=== PATIENT | female | born 1950 | race Caucasian/White ===

== ENCOUNTER → 2016-09-13 | Outpatient (REF) | payer MEDICARE, BC ==
[~2016-09-13] MED LIST: /WARF5TA OR; ACET500C OR; ACET65TA OR; ACETAMINOPHEN PO; ASPI81TA45; ASPI81TA83 OR; ASPI81TA85 PO; ATIV0.5T OR; AZIL1TAB PO; B-12100011 SL; B-12500T2 PO; BABY81CH; BEN1.4DI EX; BISA10SU2 RE; CARB25TA PO; EFFE75CA75 PO; FENT100D25 TD; FERR325T OR; FURO40TA2 PO; HEPARIN IV; HYDR-3713 PO; HYDROCODONE PO; KEFL500C; KLOR1TAB77 PO; LACTASE PO; LIDO5DIS TD; LIDO5DIS36 TD; MELO7.5S PO; MELO7.5T6 PO; MILKSUS PO; MIRAPEX; MIRAPEX OR; MIRT30TA3 PO; NAPR500T; NEUR600T; NEUR600T OR; OMEP40CA2 PO; OMEPPOW18 PO; OPTI0.5D5 OU; OXACILLIN IV; PERC5TAB8 OR; POTA10CA2 OR; POTA1TAB14 PO; POTASIUM PO; PRIL40CA OR; QUESTRAN OR; QUET1TAB7 PO; REST0.05 OU; RIFA300C3 OR; ROPI4TAB PO; ROXI1TAB2 PO; RYZOLT; SELEGILINE; SINE25TA2 OR; SODI-399 IV; TRAM50TA2 OR; TRAM50TA2 PO; ULTR50TA PO; VENL75TA2 PO; VENL75TA3 PO; VICO5TAB; VITA250L PO; VITA400C OR; VITA500T OR; [UNRECOGNIZED DRUG - OTHER]; [UNRECOGNIZED DRUG - OTHER] PO
[2016-09-13 10:48] LABS: BASO # 0.1 K/mm3 (0.0-0.2); BASO % 2.2 % (0.0-1.0); EOS # 0.2 K/mm3 (0.0-0.50); EOS % 4.4 % (0.0-3.0); LARGE UNSTAINED CELL # 0.1 K/mm3 (0.0-0.4); LARGE UNSTAINED CELL % 2.6 % (0.0-4.0); LYMPH # 0.7 K/mm3 (1.5-4.5); LYMPH % 12.3 % (24.0-44.0); MEAN CORPUSCULAR HEMOGLOBIN 29.1 pg (27.0-33.0); MEAN CORPUSCULAR HGB CONC 32.4 g/dl (32.0-36.5); MEAN CORPUSCULAR VOLUME 89.9 fl (80.0-96.0); MONO # 0.4 K/mm3 (0.0-0.8); MONO % 7.8 % (0.0-5.0); NEUTROPHILS # 3.2 K/mm3 (1.8-7.7); NEUTROPHILS % 70.6 % (36.0-66.0); PLATELET COUNT, AUTOMATED 279 k/mm3 (150-450); RED CELL DISTRIBUTION WIDTH 15.5 % (11.5-14.5); WHITE BLOOD COUNT 4.5 K/mm3 (4.0-10.0)
== END ==
PROVIDERS: ATTEND Psychiatry & Neurology Psychiatry
DX: Z51.81 Encounter for therapeutic drug level monitoring (principal); Z79.899 Other long term (current) drug therapy
CPT/HCPCS: 36415; 85025; G0463

== ENCOUNTER → 2016-09-14 | Outpatient (CLI) | payer MEDICARE ==
[~2016-09-14] MED LIST changes: -HYDR-3713 PO; +HYDR1TAB97 PO
--- NOTE | 2016-09-14 16:07 | REP ---
LEFT BREAST ULTRASOUND: Left breast ultrasound is performed in the lower inner aspect to evaluate the small nodule seen on the mammogram at [facility] 07/27/2016. At the 9 o'clock position of the left breast is an oval complex cystic structure measuring 3 mm in diameter. This probably corresponds to the mammographic abnormality. There is distal acoustic shadowing. It is possible that this could represent a solid nodule. Recommend ultrasound guided biopsy with post-procedure mammogram. IMPRESSION: ACR 4 suspicious. The tiny nodule in the medial left breast appears to correspond to a hypoechoic nodule 3 mm in diameter at the 9 o'clock position. Recommend ultrasound guided aspiration/biopsy and post-procedure mammogram. Signed by Fran Castillo MD 09/14/2016 05:23 P
== END ==
LOC: M RAD 13:50
PROVIDERS: ATTEND Surgery
DX: N63 Unspecified lump in breast (principal)

== ENCOUNTER → 2016-09-26 | Outpatient (CLI) | payer MEDICARE ==
[~2016-09-26] MED LIST changes: +HYDR-3713 PO; -HYDR1TAB97 PO; +LIDOCAINE 1% MDV 20ML VIAL As Ordered ONE
--- NOTE | 2016-09-26 14:33 | REP ---
Digital diagnostic unilateral left breast mammogram with CAD: History: Marker clip placement views post ultrasound-guided needle biopsy. Comparison mammography is from August 03, 2016. Findings: There is a marker clip in good position at the inferomedial quadrant of the left breast at the site where August 03, 2016 prior mammography showed a small nodule. There is a 1 cm hematoma at the biopsy site visible on today's mammography. Impression: Marker clip in good position. Signed by Audi Chandra MD 09/26/2016 03:34 P
--- NOTE | 2016-09-27 12:25 | REP ---
ULTRASOUND GUIDED LEFT BREAST BIOPSY: The procedure was performed under the direct supervision of Dr. Chandra. The patient has a history of a tiny nodule in the medial left breast seen on a previous ultrasound dated 09/14/2016. The risks and benefits of the procedure were explained to the patient and informed consent was obtained. The left breast nodule was localized using ultrasound guidance. The skin was prepped and draped in a sterile fashion. 1% Xylocaine was used as a local anesthetic. Using ultrasound guidance, a 13-gauge suction assisted Mammotome needle was inserted and four core biopsy samples were obtained. A marker clip was placed at the biopsy site. The patient tolerated the procedure well and there were no immediate complications. After the appropriate amount of monitored convalescence, the patient was discharged from the department. Reviewed by MINDY Cuevas 09/27/2016 01:41 PEdited and Signed by Audi Chandra MD 09/27/2016 02:35 P
== END | disposition home or self-care (01) ==
LOC: M RADPRO 11:30
PROVIDERS: ATTEND Surgery
DX: E65 Localized adiposity (principal); N60.12 Diffuse cystic mastopathy of left breast; Z79.82 Long term (current) use of aspirin; Z79.899 Other long term (current) drug therapy; Z88.5 Allergy status to narcotic agent
CPT/HCPCS: 19083; 88305; G0206

== ENCOUNTER → 2016-09-27 | Outpatient (REF) | payer MEDICARE, BC ==
[~2016-09-27] MED LIST changes: -LIDOCAINE 1% MDV 20ML VIAL As Ordered ONE
[2016-09-27 10:15] LABS: BASO % 1.1 % (0.0-1.0); EOS # 0.2 K/mm3 (0.0-0.50); EOS % 3.1 % (0.0-3.0); LARGE UNSTAINED CELL # 0.1 K/mm3 (0.0-0.4); LARGE UNSTAINED CELL % 0.9 % (0.0-4.0); LYMPH # 0.7 K/mm3 (1.5-4.5); LYMPH % 12.6 % (24.0-44.0); MEAN CORPUSCULAR HEMOGLOBIN 30.4 pg (27.0-33.0); MEAN CORPUSCULAR HGB CONC 32.4 g/dl (32.0-36.5); MEAN CORPUSCULAR VOLUME 93.8 fl (80.0-96.0); MONO # 0.3 K/mm3 (0.0-0.8); MONO % 5.6 % (0.0-5.0); NEUTROPHILS # 3.7 K/mm3 (1.8-7.7); NEUTROPHILS % 76.6 % (36.0-66.0); PLATELET COUNT, AUTOMATED 238 k/mm3 (150-450); RED CELL DISTRIBUTION WIDTH 15.2 % (11.5-14.5); WHITE BLOOD COUNT 4.9 K/mm3 (4.0-10.0)
== END ==
PROVIDERS: ATTEND Psychiatry & Neurology Psychiatry
DX: Z51.81 Encounter for therapeutic drug level monitoring (principal); Z79.899 Other long term (current) drug therapy
CPT/HCPCS: 36415; 85025; G0463

== ENCOUNTER → 2016-10-11 | Outpatient (REF) | payer MEDICARE, BC ==
[2016-10-11 09:42] LABS: BASO % 0.5 % (0.0-1.0); EOS # 0.2 K/mm3 (0.0-0.50); EOS % 3.5 % (0.0-3.0); LARGE UNSTAINED CELL # 0.1 K/mm3 (0.0-0.4); LARGE UNSTAINED CELL % 1.6 % (0.0-4.0); LYMPH # 0.6 K/mm3 (1.5-4.5); LYMPH % 12.7 % (24.0-44.0); MEAN CORPUSCULAR HGB CONC 32.5 g/dl (32.0-36.5); MEAN CORPUSCULAR VOLUME 92.4 fl (80.0-96.0); MONO # 0.3 K/mm3 (0.0-0.8); MONO % 6.1 % (0.0-5.0); NEUTROPHILS # 3.5 K/mm3 (1.8-7.7); NEUTROPHILS % 75.6 % (36.0-66.0); PLATELET COUNT, AUTOMATED 266 k/mm3 (150-450); RED CELL DISTRIBUTION WIDTH 14.4 % (11.5-14.5); WHITE BLOOD COUNT 4.6 K/mm3 (4.0-10.0)
== END ==
PROVIDERS: ATTEND Psychiatry & Neurology Psychiatry
DX: Z51.81 Encounter for therapeutic drug level monitoring (principal); Z79.899 Other long term (current) drug therapy

== ENCOUNTER → 2016-10-25 | Outpatient (REF) | payer MEDICARE, BC ==
[2016-10-25 10:54] LABS: BASO % 0.4 % (0.0-1.0); EOS # 0.2 K/mm3 (0.0-0.50); EOS % 3.2 % (0.0-3.0); LARGE UNSTAINED CELL % 0.6 % (0.0-4.0); LYMPH # 0.4 K/mm3 (1.5-4.5); LYMPH % 6.1 % (24.0-44.0); MEAN CORPUSCULAR HEMOGLOBIN 29.5 pg (27.0-33.0); MEAN CORPUSCULAR HGB CONC 31.6 g/dl (32.0-36.5); MEAN CORPUSCULAR VOLUME 93.6 fl (80.0-96.0); MONO # 0.3 K/mm3 (0.0-0.8); MONO % 5.3 % (0.0-5.0); NEUTROPHILS % 84.4 % (36.0-66.0); PLATELET COUNT, AUTOMATED 221 k/mm3 (150-450); RED CELL DISTRIBUTION WIDTH 14.5 % (11.5-14.5); WHITE BLOOD COUNT 5.9 K/mm3 (4.0-10.0)
== END ==
PROVIDERS: ATTEND Psychiatry & Neurology Psychiatry
DX: Z51.81 Encounter for therapeutic drug level monitoring (principal); Z79.899 Other long term (current) drug therapy

== ENCOUNTER → 2016-11-08 | Outpatient (REF) | payer MEDICARE, BC ==
[2016-11-08 12:48] LABS: ALBUMIN 3.5 GM/DL (3.2-5.2); ALBUMIN/GLOBULIN RATIO 1.13 (1.00-1.93); BILIRUBIN,TOTAL 0.4 MG/DL (0.2-1.0); CALCIUM LEVEL 8.7 MG/DL (8.8-10.2); CREATININE FOR GFR 0.99 MG/DL (0.55-1.02); GLOMERULAR FILTRATION RATE 59.4 (>45); POTASSIUM SERUM 3.9 MEQ/L (3.5-5.1); TOTAL PROTEIN 6.6 GM/DL (6.4-8.2)
== END ==
PROVIDERS: ATTEND Internal Medicine
DX: R60.0 Localized edema (principal); E78.00 Pure hypercholesterolemia, unspecified; Z23 Encounter for immunization

== ENCOUNTER → 2016-11-08 | Outpatient (REF) | payer MEDICARE, BC ==
[2016-11-08 12:08] LABS: BASO % 0.2 % (0.0-1.0); EOS # 0.2 K/mm3 (0.0-0.50); EOS % 3.7 % (0.0-3.0); LARGE UNSTAINED CELL % 0.5 % (0.0-4.0); LYMPH # 0.4 K/mm3 (1.5-4.5); LYMPH % 8.9 % (24.0-44.0); MEAN CORPUSCULAR HEMOGLOBIN 30.1 pg (27.0-33.0); MEAN CORPUSCULAR HGB CONC 32.1 g/dl (32.0-36.5); MEAN CORPUSCULAR VOLUME 93.9 fl (80.0-96.0); MONO # 0.3 K/mm3 (0.0-0.8); MONO % 5.4 % (0.0-5.0); NEUTROPHILS # 3.8 K/mm3 (1.8-7.7); NEUTROPHILS % 81.3 % (36.0-66.0); PLATELET COUNT, AUTOMATED 238 k/mm3 (150-450); RED CELL DISTRIBUTION WIDTH 14.3 % (11.5-14.5); WHITE BLOOD COUNT 4.7 K/mm3 (4.0-10.0)
== END ==
PROVIDERS: ATTEND Psychiatry & Neurology Psychiatry
DX: Z79.899 Other long term (current) drug therapy (principal)

== ENCOUNTER → 2016-11-16 | Outpatient (REF) | payer MEDICARE, BC ==
[2016-11-16 10:49] LABS: BASO % 0.3 % (0.0-1.0); EOS # 0.2 K/mm3 (0.0-0.50); EOS % 2.8 % (0.0-3.0); LARGE UNSTAINED CELL # 0.1 K/mm3 (0.0-0.4); LARGE UNSTAINED CELL % 1.1 % (0.0-4.0); LYMPH # 0.6 K/mm3 (1.5-4.5); LYMPH % 9.9 % (24.0-44.0); MEAN CORPUSCULAR HEMOGLOBIN 30.1 pg (27.0-33.0); MEAN CORPUSCULAR HGB CONC 32.6 g/dl (32.0-36.5); MEAN CORPUSCULAR VOLUME 92.5 fl (80.0-96.0); MONO # 0.3 K/mm3 (0.0-0.8); NEUTROPHILS % 80.9 % (36.0-66.0); PLATELET COUNT, AUTOMATED 239 k/mm3 (150-450); WHITE BLOOD COUNT 6.2 K/mm3 (4.0-10.0)
== END ==
PROVIDERS: ATTEND Psychiatry & Neurology Psychiatry
DX: Z51.81 Encounter for therapeutic drug level monitoring (principal); Z79.899 Other long term (current) drug therapy

== ENCOUNTER → 2016-11-29 | Outpatient (REF) | payer MEDICARE, BC ==
[2016-11-29 10:17] LABS: BASO % 0.4 % (0.0-1.0); EOS # 0.2 K/mm3 (0.0-0.50); EOS % 3.9 % (0.0-3.0); LARGE UNSTAINED CELL # 0.1 K/mm3 (0.0-0.4); LARGE UNSTAINED CELL % 1.2 % (0.0-4.0); LYMPH # 0.7 K/mm3 (1.5-4.5); MEAN CORPUSCULAR HEMOGLOBIN 30.5 pg (27.0-33.0); MEAN CORPUSCULAR HGB CONC 32.8 g/dl (32.0-36.5); MEAN CORPUSCULAR VOLUME 93.2 fl (80.0-96.0); MONO # 0.3 K/mm3 (0.0-0.8); MONO % 6.9 % (0.0-5.0); NEUTROPHILS # 3.3 K/mm3 (1.8-7.7); NEUTROPHILS % 72.7 % (36.0-66.0); PLATELET COUNT, AUTOMATED 244 k/mm3 (150-450); WHITE BLOOD COUNT 4.5 K/mm3 (4.0-10.0)
== END ==
PROVIDERS: ATTEND Psychiatry & Neurology Psychiatry
DX: Z79.899 Other long term (current) drug therapy (principal)

== ENCOUNTER → 2016-12-13 | Outpatient (REF) | payer MEDICARE, BC ==
[2016-12-13 10:21] LABS: BASO % 0.5 % (0.0-1.0); EOS # 0.2 K/mm3 (0.0-0.50); EOS % 3.9 % (0.0-3.0); LARGE UNSTAINED CELL % 0.8 % (0.0-4.0); LYMPH # 0.7 K/mm3 (1.5-4.5); LYMPH % 15.5 % (24.0-44.0); MEAN CORPUSCULAR HEMOGLOBIN 30.6 pg (27.0-33.0); MEAN CORPUSCULAR HGB CONC 32.7 g/dl (32.0-36.5); MEAN CORPUSCULAR VOLUME 93.6 fl (80.0-96.0); MONO # 0.3 K/mm3 (0.0-0.8); MONO % 7.5 % (0.0-5.0); NEUTROPHILS # 3.2 K/mm3 (1.8-7.7); NEUTROPHILS % 71.9 % (36.0-66.0); PLATELET COUNT, AUTOMATED 249 k/mm3 (150-450); RED CELL DISTRIBUTION WIDTH 14.1 % (11.5-14.5); WHITE BLOOD COUNT 4.5 K/mm3 (4.0-10.0)
== END ==
PROVIDERS: ATTEND Psychiatry & Neurology Psychiatry
DX: Z51.81 Encounter for therapeutic drug level monitoring (principal); Z79.899 Other long term (current) drug therapy

== ENCOUNTER → 2016-12-27 | Outpatient (REF) | payer MEDICARE, BC ==
[2016-12-27 11:14] LABS: BASO % 0.4 % (0.0-1.0); EOS # 0.1 K/mm3 (0.0-0.50); EOS % 2.7 % (0.0-3.0); LARGE UNSTAINED CELL % 0.4 % (0.0-4.0); LYMPH # 0.5 K/mm3 (1.5-4.5); LYMPH % 10.8 % (24.0-44.0); MEAN CORPUSCULAR HGB CONC 31.7 g/dl (32.0-36.5); MEAN CORPUSCULAR VOLUME 94.8 fl (80.0-96.0); MONO # 0.3 K/mm3 (0.0-0.8); MONO % 5.8 % (0.0-5.0); NEUTROPHILS # 3.7 K/mm3 (1.8-7.7); NEUTROPHILS % 79.8 % (36.0-66.0); PLATELET COUNT, AUTOMATED 217 k/mm3 (150-450); RED CELL DISTRIBUTION WIDTH 13.9 % (11.5-14.5); WHITE BLOOD COUNT 4.6 K/mm3 (4.0-10.0)
== END ==
PROVIDERS: ATTEND Psychiatry & Neurology Psychiatry
DX: Z51.81 Encounter for therapeutic drug level monitoring (principal); Z79.899 Other long term (current) drug therapy

== ENCOUNTER → 2017-01-10 | Outpatient (REF) | payer MEDICARE, MEDICAID ==
[2017-01-10 11:10] LABS: BASO % 0.3 % (0.0-1.0); EOS # 0.2 K/mm3 (0.0-0.50); EOS % 3.1 % (0.0-3.0); LARGE UNSTAINED CELL % 0.7 % (0.0-4.0); LYMPH # 0.7 K/mm3 (1.5-4.5); LYMPH % 11.6 % (24.0-44.0); MEAN CORPUSCULAR HEMOGLOBIN 31.6 pg (27.0-33.0); MEAN CORPUSCULAR HGB CONC 33.1 g/dl (32.0-36.5); MEAN CORPUSCULAR VOLUME 95.4 fl (80.0-96.0); MONO # 0.3 K/mm3 (0.0-0.8); MONO % 5.4 % (0.0-5.0); NEUTROPHILS # 4.4 K/mm3 (1.8-7.7); NEUTROPHILS % 78.9 % (36.0-66.0); PLATELET COUNT, AUTOMATED 258 k/mm3 (150-450); RED CELL DISTRIBUTION WIDTH 14.1 % (11.5-14.5); WHITE BLOOD COUNT 5.6 K/mm3 (4.0-10.0)
== END ==
PROVIDERS: ATTEND Psychiatry & Neurology Psychiatry
DX: Z51.81 Encounter for therapeutic drug level monitoring (principal); Z79.899 Other long term (current) drug therapy

== ENCOUNTER → 2017-01-24 | Outpatient (REF) | payer MEDICARE, MEDICAID ==
[2017-01-24 11:03] LABS: BASO % 0.4 % (0.0-1.0); EOS # 0.1 K/mm3 (0.0-0.50); EOS % 2.2 % (0.0-3.0); LARGE UNSTAINED CELL % 0.6 % (0.0-4.0); LYMPH # 0.5 K/mm3 (1.5-4.5); LYMPH % 9.4 % (24.0-44.0); MEAN CORPUSCULAR HEMOGLOBIN 31.6 pg (27.0-33.0); MEAN CORPUSCULAR HGB CONC 33.3 g/dl (32.0-36.5); MONO # 0.3 K/mm3 (0.0-0.8); MONO % 5.3 % (0.0-5.0); NEUTROPHILS # 4.3 K/mm3 (1.8-7.7); NEUTROPHILS % 82.2 % (36.0-66.0); PLATELET COUNT, AUTOMATED 220 k/mm3 (150-450); RED CELL DISTRIBUTION WIDTH 14.1 % (11.5-14.5); WHITE BLOOD COUNT 5.2 K/mm3 (4.0-10.0)
== END ==
PROVIDERS: ATTEND Psychiatry & Neurology Psychiatry
DX: Z51.81 Encounter for therapeutic drug level monitoring (principal); Z79.899 Other long term (current) drug therapy

== ENCOUNTER → 2017-02-07 | Outpatient (REF) | payer MEDICARE, MEDICAID ==
[2017-02-07 11:01] LABS: BASO % 0.4 % (0.0-1.0); EOS # 0.1 K/mm3 (0.0-0.50); EOS % 2.7 % (0.0-3.0); LARGE UNSTAINED CELL % 0.8 % (0.0-4.0); LYMPH # 0.5 K/mm3 (1.5-4.5); LYMPH % 10.1 % (24.0-44.0); MEAN CORPUSCULAR HEMOGLOBIN 30.6 pg (27.0-33.0); MEAN CORPUSCULAR HGB CONC 31.9 g/dl (32.0-36.5); MEAN CORPUSCULAR VOLUME 95.7 fl (80.0-96.0); MONO # 0.2 K/mm3 (0.0-0.8); MONO % 4.9 % (0.0-5.0); NEUTROPHILS # 3.7 K/mm3 (1.8-7.7); NEUTROPHILS % 81.1 % (36.0-66.0); PLATELET COUNT, AUTOMATED 242 k/mm3 (150-450); WHITE BLOOD COUNT 4.5 K/mm3 (4.0-10.0)
== END ==
PROVIDERS: ATTEND Psychiatry & Neurology Psychiatry
DX: Z51.81 Encounter for therapeutic drug level monitoring (principal); Z79.899 Other long term (current) drug therapy

== ENCOUNTER → 2017-02-21 | Outpatient (REF) | payer MEDICARE, MEDICAID ==
[2017-02-21 10:43] LABS: BASO % 0.4 % (0.0-1.0); EOS # 0.2 K/mm3 (0.0-0.50); EOS % 3.8 % (0.0-3.0); LARGE UNSTAINED CELL % 0.7 % (0.0-4.0); LYMPH # 0.6 K/mm3 (1.5-4.5); LYMPH % 11.8 % (24.0-44.0); MEAN CORPUSCULAR HEMOGLOBIN 31.7 pg (27.0-33.0); MEAN CORPUSCULAR HGB CONC 32.8 g/dl (32.0-36.5); MEAN CORPUSCULAR VOLUME 96.6 fl (80.0-96.0); MONO # 0.3 K/mm3 (0.0-0.8); MONO % 5.4 % (0.0-5.0); NEUTROPHILS # 3.7 K/mm3 (1.8-7.7); NEUTROPHILS % 77.9 % (36.0-66.0); PLATELET COUNT, AUTOMATED 245 k/mm3 (150-450); RED CELL DISTRIBUTION WIDTH 14.1 % (11.5-14.5); WHITE BLOOD COUNT 4.7 K/mm3 (4.0-10.0)
== END ==
PROVIDERS: ATTEND Psychiatry & Neurology Psychiatry
DX: Z51.81 Encounter for therapeutic drug level monitoring (principal); Z79.899 Other long term (current) drug therapy

== ENCOUNTER → 2017-03-07 | Outpatient (REF) | payer MEDICARE, MEDICAID ==
[2017-03-07 10:41] LABS: BASO % 0.2 % (0.0-1.0); EOS # 0.1 K/mm3 (0.0-0.50); EOS % 1.5 % (0.0-3.0); LARGE UNSTAINED CELL # 0.1 K/mm3 (0.0-0.4); LARGE UNSTAINED CELL % 0.6 % (0.0-4.0); LYMPH # 0.5 K/mm3 (1.5-4.5); LYMPH % 5.2 % (24.0-44.0); MEAN CORPUSCULAR HEMOGLOBIN 31.8 pg (27.0-33.0); MEAN CORPUSCULAR HGB CONC 32.9 g/dl (32.0-36.5); MEAN CORPUSCULAR VOLUME 96.7 fl (80.0-96.0); MONO # 0.4 K/mm3 (0.0-0.8); MONO % 4.7 % (0.0-5.0); NEUTROPHILS # 7.6 K/mm3 (1.8-7.7); NEUTROPHILS % 87.9 % (36.0-66.0); PLATELET COUNT, AUTOMATED 238 k/mm3 (150-450); WHITE BLOOD COUNT 8.7 K/mm3 (4.0-10.0)
== END ==
PROVIDERS: ATTEND Psychiatry & Neurology Psychiatry
DX: Z51.81 Encounter for therapeutic drug level monitoring (principal); Z79.899 Other long term (current) drug therapy

== ENCOUNTER → 2017-03-22 | Outpatient (REF) | payer MEDICARE, MEDICAID ==
[~2017-03-22] MED LIST changes: -LIDO5DIS36 TD; +LIDO5DIS41 TD; -MELO7.5T6 PO; +MELO7.5T7 PO; -ULTR50TA PO; +ULTR50TA8 PO
[2017-03-22 11:38] LABS: BASO % 0.3 % (0.0-1.0); EOS # 0.2 K/mm3 (0.0-0.50); EOS % 3.6 % (0.0-3.0); LARGE UNSTAINED CELL # 0.1 K/mm3 (0.0-0.4); LARGE UNSTAINED CELL % 1.2 % (0.0-4.0); LYMPH # 0.5 K/mm3 (1.5-4.5); MEAN CORPUSCULAR HEMOGLOBIN 32.1 pg (27.0-33.0); MEAN CORPUSCULAR HGB CONC 33.6 g/dl (32.0-36.5); MEAN CORPUSCULAR VOLUME 95.8 fl (80.0-96.0); MONO # 0.2 K/mm3 (0.0-0.8); MONO % 4.9 % (0.0-5.0); NEUTROPHILS # 3.7 K/mm3 (1.8-7.7); NEUTROPHILS % 78.8 % (36.0-66.0); PLATELET COUNT, AUTOMATED 268 k/mm3 (150-450); RED CELL DISTRIBUTION WIDTH 13.5 % (11.5-14.5); WHITE BLOOD COUNT 4.7 K/mm3 (4.0-10.0)
== END ==
PROVIDERS: ATTEND Psychiatry & Neurology Psychiatry
DX: Z79.899 Other long term (current) drug therapy (principal)

== ENCOUNTER → 2017-04-04 | Outpatient (REF) | payer MEDICARE, MEDICAID ==
[2017-04-04 11:34] LABS: BASO % 0.4 % (0.0-1.0); EOS # 0.1 K/mm3 (0.0-0.50); EOS % 2.4 % (0.0-3.0); LARGE UNSTAINED CELL % 0.7 % (0.0-4.0); LYMPH # 0.6 K/mm3 (1.5-4.5); LYMPH % 9.1 % (24.0-44.0); MEAN CORPUSCULAR HEMOGLOBIN 31.6 pg (27.0-33.0); MEAN CORPUSCULAR HGB CONC 32.7 g/dl (32.0-36.5); MEAN CORPUSCULAR VOLUME 96.8 fl (80.0-96.0); MONO # 0.3 K/mm3 (0.0-0.8); MONO % 4.1 % (0.0-5.0); NEUTROPHILS # 5.1 K/mm3 (1.8-7.7); NEUTROPHILS % 83.4 % (36.0-66.0); PLATELET COUNT, AUTOMATED 278 k/mm3 (150-450); RED CELL DISTRIBUTION WIDTH 13.7 % (11.5-14.5); WHITE BLOOD COUNT 6.1 K/mm3 (4.0-10.0)
== END ==
PROVIDERS: ATTEND Psychiatry & Neurology Psychiatry
DX: Z51.81 Encounter for therapeutic drug level monitoring (principal); Z79.899 Other long term (current) drug therapy

== ENCOUNTER → 2017-04-18 | Outpatient (REF) | payer MEDICARE, MEDICAID ==
[2017-04-18 10:57] LABS: BASO % 0.6 % (0.0-1.0); EOS # 0.2 K/mm3 (0.0-0.50); EOS % 3.1 % (0.0-3.0); LARGE UNSTAINED CELL % 0.8 % (0.0-4.0); LYMPH # 0.5 K/mm3 (1.5-4.5); LYMPH % 8.6 % (24.0-44.0); MEAN CORPUSCULAR HEMOGLOBIN 31.6 pg (27.0-33.0); MEAN CORPUSCULAR HGB CONC 33.1 g/dl (32.0-36.5); MEAN CORPUSCULAR VOLUME 95.7 fl (80.0-96.0); MONO # 0.3 K/mm3 (0.0-0.8); MONO % 5.7 % (0.0-5.0); NEUTROPHILS # 4.3 K/mm3 (1.8-7.7); NEUTROPHILS % 81.2 % (36.0-66.0); PLATELET COUNT, AUTOMATED 260 k/mm3 (150-450); RED CELL DISTRIBUTION WIDTH 13.7 % (11.5-14.5); WHITE BLOOD COUNT 5.3 K/mm3 (4.0-10.0)
== END ==
PROVIDERS: ATTEND Psychiatry & Neurology Psychiatry
DX: Z51.81 Encounter for therapeutic drug level monitoring (principal); Z79.899 Other long term (current) drug therapy

== ENCOUNTER → 2017-05-17 | Outpatient (REF) | payer MEDICARE, MEDICAID ==
[2017-05-17 16:46] LABS: BASO % 0.4 % (0.0-1.0); EOS # 0.2 K/mm3 (0.0-0.50); EOS % 3.8 % (0.0-3.0); LARGE UNSTAINED CELL # 0.1 K/mm3 (0.0-0.4); LARGE UNSTAINED CELL % 1.1 % (0.0-4.0); LYMPH # 0.9 K/mm3 (1.5-4.5); LYMPH % 13.2 % (24.0-44.0); MEAN CORPUSCULAR HGB CONC 31.7 g/dl (32.0-36.5); MEAN CORPUSCULAR VOLUME 97.8 fl (80.0-96.0); MONO # 0.4 K/mm3 (0.0-0.8); MONO % 5.5 % (0.0-5.0); PLATELET COUNT, AUTOMATED 273 k/mm3 (150-450); WHITE BLOOD COUNT 6.6 K/mm3 (4.0-10.0)
== END ==
PROVIDERS: ATTEND Psychiatry & Neurology Psychiatry
DX: Z79.899 Other long term (current) drug therapy (principal)

== ENCOUNTER → 2017-05-26 | Outpatient (CLI) | payer MEDICARE, MEDICAID ==
[2017-05-26 13:46] LABS: ALBUMIN 3.6 GM/DL (3.2-5.2); ALBUMIN/GLOBULIN RATIO 1.16 (1.00-1.93); BILIRUBIN,TOTAL 0.4 MG/DL (0.2-1.0); CALCIUM LEVEL 8.6 MG/DL (8.8-10.2); CREATININE FOR GFR 1.06 MG/DL (0.55-1.02); GLOMERULAR FILTRATION RATE 54.7 (>45); POTASSIUM SERUM 3.8 MEQ/L (3.5-5.1); TOTAL PROTEIN 6.7 GM/DL (6.4-8.2)
== END ==
LOC: M SMT 10:19
PROVIDERS: ATTEND Internal Medicine
DX: R60.0 Localized edema (principal); E78.00 Pure hypercholesterolemia, unspecified

== ENCOUNTER → 2017-06-13 | Outpatient (REF) | payer MEDICARE, MEDICAID ==
[2017-06-13 11:20] LABS: ADD MANUAL DIFFER NO; BASO % 0.4 % (0.0-1.0); DIFF SLIDE NUMBER 7; EOS # 0.2 10^3/uL (0.0-0.50); EOS % 3.1 % (0.0-3.0); IMMATURE GRANULOCYTE % 0.4 % (0-0); LYMPH # 0.8 10^3/uL (1.5-4.5); LYMPH % 13.9 % (24.0-44.0); MEAN CORPUSCULAR HEMOGLOBIN 31.3 pg (27.0-33.0); MEAN CORPUSCULAR HGB CONC 32.2 g/dl (32.0-36.5); MEAN CORPUSCULAR VOLUME 97.2 fl (80.0-96.0); MONO # 0.4 10^3/uL (0.0-0.8); MONO % 6.9 % (0.0-5.0); NEUTROPHILS # 4.1 10^3/uL (1.8-7.7); NEUTROPHILS % 75.3 % (36.0-66.0); PLATELET COUNT, AUTOMATED 227 10^3/uL (150-450); RED CELL DISTRIBUTION WIDTH 13.4 % (11.5-14.5); WHITE BLOOD COUNT 5.5 10^3/uL (4.0-10.0)
== END ==
PROVIDERS: ATTEND Psychiatry & Neurology Psychiatry
DX: Z51.81 Encounter for therapeutic drug level monitoring (principal); Z79.899 Other long term (current) drug therapy

== ENCOUNTER → 2017-07-11 | Outpatient (REF) | payer MEDICARE, MEDICAID ==
[2017-07-11 11:12] LABS: BASO % 0.4 % (0.0-1.0); EOS # 0.2 10^3/uL (0.0-0.50); EOS % 3.2 % (0.0-3.0); IMMATURE GRANULOCYTE % 0.2 % (0-0); LYMPH # 0.6 10^3/uL (1.5-4.5); LYMPH % 12.3 % (24.0-44.0); MEAN CORPUSCULAR HEMOGLOBIN 30.8 pg (27.0-33.0); MEAN CORPUSCULAR HGB CONC 31.8 g/dl (32.0-36.5); MEAN CORPUSCULAR VOLUME 96.8 fl (80.0-96.0); MONO # 0.3 10^3/uL (0.0-0.8); MONO % 6.3 % (0.0-5.0); NEUTROPHILS # 3.9 10^3/uL (1.8-7.7); NEUTROPHILS % 77.6 % (36.0-66.0); PLATELET COUNT, AUTOMATED 224 10^3/uL (150-450); RED CELL DISTRIBUTION WIDTH 13.3 % (11.5-14.5); WHITE BLOOD COUNT 5.1 10^3/uL (4.0-10.0)
== END ==
PROVIDERS: ATTEND Psychiatry & Neurology Psychiatry
DX: Z51.81 Encounter for therapeutic drug level monitoring (principal); Z79.899 Other long term (current) drug therapy

== ENCOUNTER → 2017-08-09 | Outpatient (REF) | payer MEDICARE, MEDICAID ==
[2017-08-09 09:50] LABS: BASO % 0.6 % (0.0-1.0); EOS # 0.2 10^3/uL (0.0-0.50); EOS % 4.8 % (0.0-3.0); IMMATURE GRANULOCYTE % 0.3 % (0-0); LYMPH # 0.6 10^3/uL (1.5-4.5); LYMPH % 20.1 % (24.0-44.0); MEAN CORPUSCULAR HEMOGLOBIN 31.4 pg (27.0-33.0); MEAN CORPUSCULAR HGB CONC 32.9 g/dl (32.0-36.5); MEAN CORPUSCULAR VOLUME 95.4 fl (80.0-96.0); MONO # 0.3 10^3/uL (0.0-0.8); MONO % 10.2 % (0.0-5.0); PLATELET COUNT, AUTOMATED 215 10^3/uL (150-450); RED CELL DISTRIBUTION WIDTH 13.5 % (11.5-14.5); WHITE BLOOD COUNT 3.1 10^3/uL (4.0-10.0)
== END ==
PROVIDERS: ATTEND Psychiatry & Neurology Psychiatry
DX: Z79.899 Other long term (current) drug therapy (principal)

== ENCOUNTER 2017-09-13 11:39 | Day surgery (SDC) | payer MEDICARE, MEDICAID ==
[2017-09-13] MEDS: NS 1,000 ML IV (11:45)
[2017-09-13] MEDS ORDERED: PROPOFOL 200 MG/20 ML VIAL As Ordered ×2 (13:41→13:45)
== END 2017-09-13 14:41 | disposition home or self-care (01) ==
LOC: M OPP 11:39
DX: Z12.11 Encounter for screening for malignant neoplasm of colon (principal); K64.0 First degree hemorrhoids; K57.30 Diverticulosis of large intestine without perforation or abscess without bleeding; Z80.0 Family history of malignant neoplasm of digestive organs; Z86.010 Personal history of colon polyps; K21.9 Gastro-esophageal reflux disease without esophagitis; F41.9 Anxiety disorder, unspecified; F32.9 Major depressive disorder, single episode, unspecified; M79.2 Neuralgia and neuritis, unspecified; G20 Parkinson's disease; M86.9 Osteomyelitis, unspecified; M19.90 Unspecified osteoarthritis, unspecified site; Z96.641 Presence of right artificial hip joint; Z87.19 Personal history of other diseases of the digestive system; Z87.790 Personal history of (corrected) congenital malformations of face and neck; Z79.82 Long term (current) use of aspirin; Z79.899 Other long term (current) drug therapy
CPT/HCPCS: G0105

== ENCOUNTER → 2017-09-25 | Outpatient (REF) | payer MEDICARE, MEDICAID ==
[2017-09-25 21:23] LABS: VITAMIN B12 LEVEL 475 PG/ML (247-911)
[2017-09-25 21:33] LABS: ALBUMIN 3.6 GM/DL (3.2-5.2); ALBUMIN/GLOBULIN RATIO 1.16 (1.00-1.93); ALKALINE PHOSPHATASE 100 U/L (45-117); ALT/SGPT 9 U/L (12-78); ANION GAP 7 MEQ/L (8-16); AST/SGOT 15 U/L (7-37); BILIRUBIN,TOTAL 0.4 MG/DL (0.2-1.0); BLOOD UREA NITROGEN 17 MG/DL (7-18); CALCIUM LEVEL 8.8 MG/DL (8.8-10.2); CARBON DIOXIDE LEVEL 30 MEQ/L (21-32); CHLORIDE LEVEL 108 MEQ/L (98-107); GLOMERULAR FILTRATION RATE 58.5 (>45); GLUCOSE, FASTING 93 MG/DL (80-110); SODIUM LEVEL 145 MEQ/L (136-145); THYROID STIMULATING HORMONE 0.259 uIU/ML (0.358-3.740); TOTAL PROTEIN 6.7 GM/DL (6.4-8.2)
== END ==
LOC: M SFHCPLAZ 14:46
DX: R60.0 Localized edema (principal); E78.00 Pure hypercholesterolemia, unspecified; E53.8 Deficiency of other specified B group vitamins; F34.1 Dysthymic disorder
CPT/HCPCS: 84443

== ENCOUNTER → 2017-10-03 | Outpatient (REF) | payer MEDICARE, MEDICAID ==
[2017-10-03 09:13] LABS: BASO % 0.4 % (0.0-1.0); EOS # 0.2 10^3/uL (0.0-0.50); EOS % 4.8 % (0.0-3.0); HEMATOCRIT 34.5 % (36.0-47.0); HEMOGLOBIN 11.2 g/dl (12.0-16.0); IMMATURE GRANULOCYTE % 0.2 % (0-0); LYMPH % 21.2 % (24.0-44.0); MEAN CORPUSCULAR HEMOGLOBIN 30.8 pg (27.0-33.0); MEAN CORPUSCULAR HGB CONC 32.5 g/dl (32.0-36.5); MEAN CORPUSCULAR VOLUME 94.8 fl (80.0-96.0); MONO # 0.3 10^3/uL (0.0-0.8); MONO % 7.1 % (0.0-5.0); NEUTROPHILS # 3.1 10^3/uL (1.8-7.7); NEUTROPHILS % 66.3 % (36.0-66.0); PLATELET COUNT, AUTOMATED 238 10^3/uL (150-450); RED BLOOD COUNT 3.64 10^6/uL (4.00-5.40); RED CELL DISTRIBUTION WIDTH 13.3 % (11.5-14.5); WHITE BLOOD COUNT 4.6 10^3/uL (4.0-10.0)
== END ==
DX: Z79.899 Other long term (current) drug therapy (principal)
CPT/HCPCS: 85025

== ENCOUNTER → 2017-10-31 | Outpatient (REF) | payer MEDICARE, MEDICAID ==
[2017-10-31 09:34] LABS: BASO % 0.4 % (0.0-1.0); EOS # 0.2 10^3/uL (0.0-0.50); EOS % 3.6 % (0.0-3.0); HEMATOCRIT 34.1 % (36.0-47.0); HEMOGLOBIN 11.6 g/dl (12.0-16.0); IMMATURE GRANULOCYTE % 0.2 % (0-3.0); LYMPH # 0.9 10^3/uL (1.5-4.5); LYMPH % 17.8 % (24.0-44.0); MEAN CORPUSCULAR VOLUME 93.9 fl (80.0-96.0); MONO # 0.4 10^3/uL (0.0-0.8); MONO % 8.7 % (0.0-5.0); NEUTROPHILS # 3.4 10^3/uL (1.8-7.7); NEUTROPHILS % 69.3 % (36.0-66.0); PLATELET COUNT, AUTOMATED 272 10^3/uL (150-450); RED BLOOD COUNT 3.63 10^6/uL (4.00-5.40); RED CELL DISTRIBUTION WIDTH 13.3 % (11.5-14.5)
== END ==
DX: F29 Unspecified psychosis not due to a substance or known physiological condition (principal)
CPT/HCPCS: 85025

== ENCOUNTER → 2017-11-24 | Outpatient (REF) | payer MEDICARE, MEDICAID ==
[2017-11-24 10:28] LABS: ALBUMIN 3.5 GM/DL (3.2-5.2); ALBUMIN/GLOBULIN RATIO 1.09 (1.00-1.93); ALKALINE PHOSPHATASE 96 U/L (45-117); ALT/SGPT 10 U/L (12-78); ANION GAP 8 MEQ/L (8-16); AST/SGOT 16 U/L (7-37); BILIRUBIN,TOTAL 0.4 MG/DL (0.2-1.0); BLOOD UREA NITROGEN 21 MG/DL (7-18); CALCIUM LEVEL 8.5 MG/DL (8.8-10.2); CARBON DIOXIDE LEVEL 28 MEQ/L (21-32); CHLORIDE LEVEL 109 MEQ/L (98-107); CHOLESTEROL LEVEL 229 MG/DL (<200); CHOLESTEROL RISK RATIO 3.816 (<5); CREATININE FOR GFR 1.04 MG/DL (0.55-1.30); GLOMERULAR FILTRATION RATE 55.9 (>45); GLUCOSE, FASTING 88 MG/DL (70-100); HDL CHOLESTEROL 60 MG/DL (>40); LDL CHOLESTEROL 142.6 MG/DL (<100); NON-HDL-C 169 MG/DL; POTASSIUM SERUM 3.8 MEQ/L (3.5-5.1); SODIUM LEVEL 145 MEQ/L (136-145); TOTAL PROTEIN 6.7 GM/DL (6.4-8.2); TRIGLYCERIDES LEVEL 132 MG/DL (<150)
[2017-11-24 11:22] LABS: VITAMIN B12 LEVEL 435 PG/ML (247-911)
== END ==
DX: E78.00 Pure hypercholesterolemia, unspecified (principal); R60.0 Localized edema; F34.1 Dysthymic disorder; E53.8 Deficiency of other specified B group vitamins
CPT/HCPCS: 84443

== ENCOUNTER → 2017-11-28 | Outpatient (REF) | payer MEDICARE, MEDICAID ==
[2017-11-28 09:39] LABS: BASO % 0.3 % (0.0-1.0); EOS # 0.2 10^3/uL (0.0-0.50); EOS % 3.1 % (0.0-3.0); HEMATOCRIT 33.5 % (36.0-47.0); HEMOGLOBIN 10.9 g/dl (12.0-16.0); IMMATURE GRANULOCYTE % 0.3 % (0-3.0); LYMPH # 0.8 10^3/uL (1.5-4.5); MEAN CORPUSCULAR HGB CONC 32.5 g/dl (32.0-36.5); MEAN CORPUSCULAR VOLUME 95.2 fl (80.0-96.0); MONO # 0.5 10^3/uL (0.0-0.8); MONO % 8.2 % (0.0-5.0); NEUTROPHILS # 4.3 10^3/uL (1.8-7.7); NEUTROPHILS % 74.1 % (36.0-66.0); PLATELET COUNT, AUTOMATED 201 10^3/uL (150-450); RED BLOOD COUNT 3.52 10^6/uL (4.00-5.40); RED CELL DISTRIBUTION WIDTH 13.3 % (11.5-14.5); WHITE BLOOD COUNT 5.8 10^3/uL (4.0-10.0)
== END ==
DX: F32.9 Major depressive disorder, single episode, unspecified (principal); Z79.899 Other long term (current) drug therapy
CPT/HCPCS: 85025

== ENCOUNTER → 2017-12-26 | Outpatient (REF) | payer MEDICARE, MEDICAID ==
[2017-12-26 09:21] LABS: BASO % 0.4 % (0.0-1.0); EOS # 0.2 10^3/uL (0.0-0.50); EOS % 3.9 % (0.0-3.0); HEMOGLOBIN 11.3 g/dl (12.0-15.5); IMMATURE GRANULOCYTE % 0.2 % (0-3.0); LYMPH # 1.2 10^3/uL (1.5-4.5); LYMPH % 20.9 % (24.0-44.0); MEAN CORPUSCULAR HEMOGLOBIN 30.3 pg (27.0-33.0); MEAN CORPUSCULAR HGB CONC 32.3 g/dl (32.0-36.5); MEAN CORPUSCULAR VOLUME 93.8 fl (80.0-96.0); MONO # 0.4 10^3/uL (0.0-0.8); MONO % 7.6 % (0.0-5.0); NEUTROPHILS # 3.8 10^3/uL (1.8-7.7); PLATELET COUNT, AUTOMATED 229 10^3/uL (150-450); RED BLOOD COUNT 3.73 10^6/uL (4.00-5.40); RED CELL DISTRIBUTION WIDTH 13.4 % (11.5-14.5); WHITE BLOOD COUNT 5.7 10^3/uL (4.0-10.0)
== END ==
DX: Z79.899 Other long term (current) drug therapy (principal)
CPT/HCPCS: 85025

== ENCOUNTER → 2018-01-23 | Outpatient (REF) | payer MEDICARE, MEDICAID ==
[2018-01-23 09:36] LABS: BASO % 0.5 % (0.0-1.0); EOS # 0.2 10^3/uL (0.0-0.50); EOS % 3.6 % (0.0-3.0); HEMATOCRIT 33.8 % (36.0-47.0); HEMOGLOBIN 10.9 g/dl (12.0-15.5); IMMATURE GRANULOCYTE % 0.4 % (0-3.0); LYMPH # 0.9 10^3/uL (1.5-4.5); LYMPH % 16.8 % (24.0-44.0); MEAN CORPUSCULAR HEMOGLOBIN 30.9 pg (27.0-33.0); MEAN CORPUSCULAR HGB CONC 32.2 g/dl (32.0-36.5); MEAN CORPUSCULAR VOLUME 95.8 fl (80.0-96.0); MONO # 0.4 10^3/uL (0.0-0.8); MONO % 7.9 % (0.0-5.0); NEUTROPHILS % 70.8 % (36.0-66.0); PLATELET COUNT, AUTOMATED 212 10^3/uL (150-450); RED BLOOD COUNT 3.53 10^6/uL (4.00-5.40); RED CELL DISTRIBUTION WIDTH 13.5 % (11.5-14.5); WHITE BLOOD COUNT 5.6 10^3/uL (4.0-10.0)
== END ==
DX: Z51.81 Encounter for therapeutic drug level monitoring (principal); Z79.899 Other long term (current) drug therapy
CPT/HCPCS: 85025

== ENCOUNTER → 2018-02-20 | Outpatient (REF) | payer MEDICARE, MEDICAID ==
[2018-02-20 09:45] LABS: BASO % 0.3 % (0.0-1.0); EOS # 0.2 10^3/uL (0.0-0.50); EOS % 3.6 % (0.0-3.0); HEMATOCRIT 34.2 % (36.0-47.0); HEMOGLOBIN 11.1 g/dl (12.0-15.5); IMMATURE GRANULOCYTE % 0.2 % (0-3.0); LYMPH # 0.9 10^3/uL (1.5-4.5); LYMPH % 14.4 % (24.0-44.0); MEAN CORPUSCULAR HEMOGLOBIN 31.1 pg (27.0-33.0); MEAN CORPUSCULAR HGB CONC 32.5 g/dl (32.0-36.5); MEAN CORPUSCULAR VOLUME 95.8 fl (80.0-96.0); MONO # 0.5 10^3/uL (0.0-0.8); MONO % 8.1 % (0.0-5.0); NEUTROPHILS # 4.3 10^3/uL (1.8-7.7); NEUTROPHILS % 73.4 % (36.0-66.0); PLATELET COUNT, AUTOMATED 199 10^3/uL (150-450); RED BLOOD COUNT 3.57 10^6/uL (4.00-5.40); RED CELL DISTRIBUTION WIDTH 13.2 % (11.5-14.5); WHITE BLOOD COUNT 5.9 10^3/uL (4.0-10.0)
== END ==
DX: Z79.899 Other long term (current) drug therapy (principal)
CPT/HCPCS: 85025

== ENCOUNTER → 2018-03-06 | Outpatient (REF) | payer MEDICARE, MEDICAID ==
[2018-03-06 12:10] LABS: ALBUMIN 3.7 GM/DL (3.2-5.2); ALBUMIN/GLOBULIN RATIO 1.19 (1.00-1.93); ALKALINE PHOSPHATASE 99 U/L (45-117); ALT/SGPT 12 U/L (12-78); ANION GAP 7 MEQ/L (8-16); AST/SGOT 17 U/L (7-37); BILIRUBIN,TOTAL 0.4 MG/DL (0.2-1.0); BLOOD UREA NITROGEN 20 MG/DL (7-18); CALCIUM LEVEL 8.8 MG/DL (8.8-10.2); CARBON DIOXIDE LEVEL 31 MEQ/L (21-32); CHLORIDE LEVEL 110 MEQ/L (98-107); CHOLESTEROL LEVEL 216 MG/DL (<200); CHOLESTEROL RISK RATIO 3.483 (<5); CREATININE FOR GFR 1.16 MG/DL (0.55-1.30); GLOMERULAR FILTRATION RATE 49.3 (>45); GLUCOSE, FASTING 85 MG/DL (70-100); HDL CHOLESTEROL 62 MG/DL (>40); LDL CHOLESTEROL 126.8 MG/DL (<100); NON-HDL-C 154 MG/DL; POTASSIUM SERUM 4.2 MEQ/L (3.5-5.1); SODIUM LEVEL 148 MEQ/L (136-145); TOTAL PROTEIN 6.8 GM/DL (6.4-8.2); TRIGLYCERIDES LEVEL 136 MG/DL (<150)
== END ==
LOC: M SFHCPLAZ 08:38
DX: E78.00 Pure hypercholesterolemia, unspecified (principal)
CPT/HCPCS: 80053

== ENCOUNTER 2018-03-15 08:25 | Day surgery (SDC) | payer MEDICARE, MEDICAID ==
[2018-03-15] MEDS: LIDOCAINE 2% W/EPIN INJ 20ML **PRES FREE As Ordered (06:51)
[2018-03-15] MEDS: TROPICAMIDE 1% OPHTH SOLN 2ML OS (10:25)
[2018-03-15] MEDS: OFLOXACIN 0.3 % (OCUFLOX) OPTH SOL 5ML OS (10:25)
[2018-03-15] MEDS ORDERED: MIDAZOLAM INJ 2 MG/2 ML VIAL (J2250) As Ordered (10:33)
[2018-03-15] MEDS ORDERED: fentaNYL 100 MCG/2 ML INJECTION (J3010) As Ordered (10:33)
[2018-03-15] MEDS: POVIDONE-IODINE 5% OPHTH PREP SOL 30ML As Ordered (10:59)
[2018-03-15] MEDS: mitoMYcin 0.2 MG/VIAL KIT FOR OPHTHALMIC USE (J7315 PER 0.2MG) As Ordered (11:00)
== END 2018-03-15 11:58 | disposition home or self-care (01) ==
LOC: M SDC 08:25
DX: H18.452 Nodular corneal degeneration, left eye (principal); H25.13 Age-related nuclear cataract, bilateral; L98.9 Disorder of the skin and subcutaneous tissue, unspecified; M15.9 Polyosteoarthritis, unspecified; K21.9 Gastro-esophageal reflux disease without esophagitis; R29.898 Other symptoms and signs involving the musculoskeletal system; M81.0 Age-related osteoporosis without current pathological fracture; E78.00 Pure hypercholesterolemia, unspecified; D47.2 Monoclonal gammopathy; F34.1 Dysthymic disorder; F03.90 Unspecified dementia, unspecified severity, without behavioral disturbance, psychotic disturbance, mood disturbance, and anxiety; E53.8 Deficiency of other specified B group vitamins; M51.37 Other intervertebral disc degeneration, lumbosacral region; F41.9 Anxiety disorder, unspecified; F32.9 Major depressive disorder, single episode, unspecified; G62.9 Polyneuropathy, unspecified; G20 Parkinson's disease; Z79.899 Other long term (current) drug therapy; Z79.82 Long term (current) use of aspirin; Z78.0 Asymptomatic menopausal state; Z96.642 Presence of left artificial hip joint; Z96.651 Presence of right artificial knee joint; Z99.89 Dependence on other enabling machines and devices; Z86.010 Personal history of colon polyps
CPT/HCPCS: 65435

== ENCOUNTER → 2018-03-20 | Outpatient (REF) | payer MEDICARE, MEDICAID ==
[2018-03-20 10:13] LABS: BASO % 0.5 % (0.0-1.0); EOS # 0.2 10^3/uL (0.0-0.50); EOS % 3.8 % (0.0-3.0); HEMATOCRIT 33.2 % (36.0-47.0); IMMATURE GRANULOCYTE % 0.2 % (0-3.0); LYMPH # 0.9 10^3/uL (1.5-4.5); LYMPH % 20.2 % (24.0-44.0); MEAN CORPUSCULAR HEMOGLOBIN 31.2 pg (27.0-33.0); MEAN CORPUSCULAR HGB CONC 33.1 g/dl (32.0-36.5); MEAN CORPUSCULAR VOLUME 94.1 fl (80.0-96.0); MONO # 0.3 10^3/uL (0.0-0.8); MONO % 7.5 % (0.0-5.0); NEUTROPHILS # 2.9 10^3/uL (1.8-7.7); NEUTROPHILS % 67.8 % (36.0-66.0); PLATELET COUNT, AUTOMATED 216 10^3/uL (150-450); RED BLOOD COUNT 3.53 10^6/uL (4.00-5.40); RED CELL DISTRIBUTION WIDTH 13.2 % (11.5-14.5); WHITE BLOOD COUNT 4.3 10^3/uL (4.0-10.0)
== END ==
DX: Z51.81 Encounter for therapeutic drug level monitoring (principal); Z79.899 Other long term (current) drug therapy
CPT/HCPCS: 85025

== ENCOUNTER → 2018-04-17 | Outpatient (REF) | payer MEDICARE, MEDICAID ==
[2018-04-17 11:37] LABS: BASO % 0.2 % (0.0-1.0); EOS # 0.1 10^3/uL (0.0-0.50); HEMATOCRIT 33.4 % (36.0-47.0); HEMOGLOBIN 10.9 g/dl (12.0-15.5); IMMATURE GRANULOCYTE % 0.2 % (0-3.0); LYMPH # 0.7 10^3/uL (1.5-4.5); MEAN CORPUSCULAR HGB CONC 32.6 g/dl (32.0-36.5); MEAN CORPUSCULAR VOLUME 94.9 fl (80.0-96.0); MONO # 0.5 10^3/uL (0.0-0.8); MONO % 8.1 % (0.0-5.0); NEUTROPHILS # 5.1 10^3/uL (1.8-7.7); NEUTROPHILS % 78.5 % (36.0-66.0); PLATELET COUNT, AUTOMATED 220 10^3/uL (150-450); RED BLOOD COUNT 3.52 10^6/uL (4.00-5.40); RED CELL DISTRIBUTION WIDTH 13.3 % (11.5-14.5); WHITE BLOOD COUNT 6.5 10^3/uL (4.0-10.0)
== END ==
DX: Z79.899 Other long term (current) drug therapy (principal)
CPT/HCPCS: 85025

== ENCOUNTER → 2018-05-15 | Outpatient (REF) | payer MEDICARE, MEDICAID ==
[2018-05-15 11:15] LABS: BASO % 0.3 % (0.0-1.0); EOS # 0.2 10^3/uL (0.0-0.50); EOS % 2.6 % (0.0-3.0); HEMATOCRIT 34.4 % (36.0-47.0); HEMOGLOBIN 11.2 g/dl (12.0-15.5); IMMATURE GRANULOCYTE % 0.1 % (0-3.0); LYMPH # 1.2 10^3/uL (1.5-4.5); LYMPH % 16.2 % (24.0-44.0); MEAN CORPUSCULAR HEMOGLOBIN 31.2 pg (27.0-33.0); MEAN CORPUSCULAR HGB CONC 32.6 g/dl (32.0-36.5); MEAN CORPUSCULAR VOLUME 95.8 fl (80.0-96.0); MONO # 0.5 10^3/uL (0.0-0.8); MONO % 7.1 % (0.0-5.0); NEUTROPHILS # 5.3 10^3/uL (1.8-7.7); NEUTROPHILS % 73.7 % (36.0-66.0); PLATELET COUNT, AUTOMATED 248 10^3/uL (150-450); RED BLOOD COUNT 3.59 10^6/uL (4.00-5.40); RED CELL DISTRIBUTION WIDTH 13.4 % (11.5-14.5); WHITE BLOOD COUNT 7.2 10^3/uL (4.0-10.0)
== END ==
DX: Z79.899 Other long term (current) drug therapy (principal)
CPT/HCPCS: 85025

== ENCOUNTER → 2018-06-12 | Outpatient (REF) | payer MEDICARE, MEDICAID ==
[2018-06-12 10:25] LABS: BASO % 0.4 % (0.0-1.0); EOS # 0.1 10^3/uL (0.0-0.50); EOS % 2.1 % (0.0-3.0); HEMATOCRIT 34.5 % (36.0-47.0); HEMOGLOBIN 11.1 g/dl (12.0-15.5); IMMATURE GRANULOCYTE % 0.2 % (0-3.0); LYMPH # 0.9 10^3/uL (1.5-4.5); MEAN CORPUSCULAR HGB CONC 32.2 g/dl (32.0-36.5); MEAN CORPUSCULAR VOLUME 96.4 fl (80.0-96.0); MONO # 0.4 10^3/uL (0.0-0.8); MONO % 7.8 % (0.0-5.0); NEUTROPHILS # 3.8 10^3/uL (1.8-7.7); NEUTROPHILS % 72.5 % (36.0-66.0); PLATELET COUNT, AUTOMATED 239 10^3/uL (150-450); RED BLOOD COUNT 3.58 10^6/uL (4.00-5.40); RED CELL DISTRIBUTION WIDTH 13.4 % (11.5-14.5); WHITE BLOOD COUNT 5.2 10^3/uL (4.0-10.0)
== END ==
DX: G20 Parkinson's disease (principal); F32.9 Major depressive disorder, single episode, unspecified
CPT/HCPCS: 85025

== ENCOUNTER → 2018-07-10 | Outpatient (REF) | payer MEDICARE, MEDICAID ==
[2018-07-10 10:43] LABS: BASO % 0.4 % (0.0-1.0); EOS # 0.2 10^3/uL (0.0-0.50); EOS % 2.1 % (0.0-3.0); IMMATURE GRANULOCYTE % 0.5 % (0-3.0); LYMPH # 0.8 10^3/uL (1.5-4.5); LYMPH % 9.5 % (24.0-44.0); MEAN CORPUSCULAR HEMOGLOBIN 30.6 pg (27.0-33.0); MEAN CORPUSCULAR HGB CONC 31.4 g/dl (32.0-36.5); MEAN CORPUSCULAR VOLUME 97.5 fl (80.0-96.0); MONO # 0.6 10^3/uL (0.0-0.8); MONO % 6.5 % (0.0-5.0); NEUTROPHILS # 6.8 10^3/uL (1.8-7.7); PLATELET COUNT, AUTOMATED 208 10^3/uL (150-450); RED BLOOD COUNT 3.59 10^6/uL (4.00-5.40); RED CELL DISTRIBUTION WIDTH 13.4 % (11.5-14.5); WHITE BLOOD COUNT 8.4 10^3/uL (4.0-10.0)
== END ==
DX: F06.32 Mood disorder due to known physiological condition with major depressive-like episode (principal)
CPT/HCPCS: 85025

== ENCOUNTER → 2018-08-07 | Outpatient (REF) | payer MEDICARE, MEDICAID ==
[2018-08-07 10:33] LABS: BASO % 0.6 % (0.0-1.0); EOS # 0.2 10^3/uL (0.0-0.50); EOS % 4.1 % (0.0-3.0); HEMATOCRIT 32.6 % (36.0-47.0); HEMOGLOBIN 10.6 g/dl (12.0-15.5); IMMATURE GRANULOCYTE % 0.4 % (0-3.0); LYMPH # 0.7 10^3/uL (1.5-4.5); LYMPH % 15.1 % (24.0-44.0); MEAN CORPUSCULAR HEMOGLOBIN 31.5 pg (27.0-33.0); MEAN CORPUSCULAR HGB CONC 32.5 g/dl (32.0-36.5); MEAN CORPUSCULAR VOLUME 96.7 fl (80.0-96.0); MONO # 0.4 10^3/uL (0.0-0.8); MONO % 9.1 % (0.0-5.0); NEUTROPHILS # 3.4 10^3/uL (1.8-7.7); NEUTROPHILS % 70.7 % (36.0-66.0); PLATELET COUNT, AUTOMATED 204 10^3/uL (150-450); RED BLOOD COUNT 3.37 10^6/uL (4.00-5.40); RED CELL DISTRIBUTION WIDTH 13.5 % (11.5-14.5); WHITE BLOOD COUNT 4.8 10^3/uL (4.0-10.0)
== END ==
DX: R44.3 Hallucinations, unspecified (principal)
CPT/HCPCS: 85025

== ENCOUNTER → 2018-08-21 | Outpatient (REF) | payer MEDICARE, MEDICAID ==
[~2018-08-21] MED LIST changes: +AMOX500T PO; -CARB25TA PO; +CARB25TA9 PO; +CLOZ100T2; +CLOZ25TA3; +COLA100C5 PO; +EFFE75CA2 PO; -EFFE75CA75 PO; +LOPE2CA PO; +MILK12002 PO; -MILKSUS PO; -ROPI4TAB PO; +ROPI4TAB3 PO; +TYLE325T5 PO; +VITA100L PO
[2018-08-21 10:49] LABS: ALBUMIN 3.5 GM/DL (3.2-5.2); BILIRUBIN,TOTAL 0.5 MG/DL (0.2-1.0); CALCIUM LEVEL 8.5 MG/DL (8.8-10.2); CHOLESTEROL RISK RATIO 3.322 (<5); CREATININE FOR GFR 1.09 MG/DL (0.55-1.30); GLOMERULAR FILTRATION RATE 52.8 (>39); POTASSIUM SERUM 3.9 MEQ/L (3.5-5.1); THYROID STIMULATING HORMONE 0.606 uIU/ML (0.358-3.740); TOTAL PROTEIN 6.5 GM/DL (6.4-8.2)
== END ==
PROVIDERS: ATTEND Internal Medicine
DX: E78.5 Hyperlipidemia, unspecified (principal); R60.9 Edema, unspecified; E53.8 Deficiency of other specified B group vitamins; F34.9 Persistent mood [affective] disorder, unspecified

== ENCOUNTER → 2018-08-29 | Outpatient (REF) | payer MEDICARE, MEDICAID ==
[2018-08-29 09:16] LABS: HEMATOCRIT 34.3 % (36.0-47.0); HEMOGLOBIN 11.1 g/dl (12.0-15.5); MEAN CORPUSCULAR HEMOGLOBIN 31.5 pg (27.0-33.0); MEAN CORPUSCULAR HGB CONC 32.4 g/dl (32.0-36.5); MEAN CORPUSCULAR VOLUME 97.4 fl (80.0-96.0); PLATELET COUNT, AUTOMATED 225 10^3/uL (150-450); RED BLOOD COUNT 3.52 10^6/uL (4.00-5.40); WHITE BLOOD COUNT 5.4 10^3/uL (4.0-10.0)
[2018-08-29 16:22] LABS: BASO # 0.1 10^3/uL (0.0-0.2); BASO % 0.9 % (0.0-1.0); EOS # 0.3 10^3/uL (0.0-0.50); LYMPH # 0.9 10^3/uL (1.5-4.5); LYMPH % 16.6 % (24.0-44.0); MONO # 0.5 10^3/uL (0.0-0.8); MONO % 8.8 % (0.0-5.0); NEUTROPHILS # 3.7 10^3/uL (1.8-7.7); NEUTROPHILS % 68.7 % (36.0-66.0)
[2018-08-29 18:53] LABS: PLATELET ESTIMATE NORMAL (NORMAL)
[2018-08-29 19:53] LABS: ATYPICAL LYMPH 8 % (0-5); BASOPHILS 1 % (0-4); EOSINOPHILS 2 % (0-5); LYMPHOCYTES 8 % (16-52); MONOCYTES 10 % (0-8); NEUTROPHILS 68 % (35-75)
== END ==
PROVIDERS: ATTEND Psychiatry & Neurology Psychiatry
DX: D47.2 Monoclonal gammopathy (principal)

== ENCOUNTER → 2018-09-05 | Outpatient (REF) | payer MEDICARE, MEDICAID ==
[2018-09-05 10:29] LABS: ALBUMIN 3.3 GM/DL (3.2-5.2); ALT/SGPT 8 U/L (12-78); BILIRUBIN,TOTAL 0.3 MG/DL (0.2-1.0); BLOOD UREA NITROGEN 25 MG/DL (7-18); CALCIUM LEVEL 8.4 MG/DL (8.8-10.2); CARBON DIOXIDE LEVEL 28 MEQ/L (21-32); CHLORIDE LEVEL 109 MEQ/L (98-107); CREATININE FOR GFR 1.02 MG/DL (0.55-1.30); GLUCOSE, FASTING 91 MG/DL (70-100); POTASSIUM SERUM 3.9 MEQ/L (3.5-5.1); SODIUM LEVEL 145 MEQ/L (136-145); TOTAL PROTEIN 6.2 GM/DL (6.4-8.2)
[2018-09-07 00:08] LABS: BETA 2 MICROGLOBULIN 2.3 mg/L (0.6-2.4); FREE KAPPA LIGHT CHAINS SERUM 20.4 mg/L (3.3-19.4); FREE LAMBDA LIGHT CHAINS SERUM 16.6 mg/L (5.7-26.3); KAPPA/LAMBDA RATIO SERUM 1.23 (0.26-1.65)
[2018-09-07 11:57] LABS: ALBUMIN % 58.1 % (55.8-66.1); ALPHA-1-GLOBULIN % 5.4 % (2.9-4.9); ALPHA-1-GLOBULINS 0.33 GM/DL (0.17-0.41); ALPHA-2-GLOBULINS 0.64 GM/DL (0.42-0.99); ALPHA-2-GLOBULINS % 10.3 % (7.1-11.8); BETA-1-GLOBULINS 0.43 GM/DL (0.28-0.60); BETA-2-GLOBULINS 0.47 GM/DL (0.19-0.55); BETA-2-GLOBULINS % 7.5 % (3.2-6.5); GAMMA GLOBULIN % 11.7 % (11.1-18.8); GAMMA GLOBULINS 0.73 GM/DL (0.65-1.58)
== END ==
PROVIDERS: ATTEND Internal Medicine
DX: D47.2 Monoclonal gammopathy (principal)

== ENCOUNTER → 2018-09-28 | Outpatient (CLI) | payer MEDICARE, MEDICAID ==
[~2018-09-28] MED LIST changes: +MILK120011 PO; -MILK12002 PO
[2018-09-28 12:23] LABS: BASO % 0.4 % (0.0-1.0); EOS # 0.2 10^3/uL (0.0-0.50); EOS % 2.7 % (0.0-3.0); HEMATOCRIT 31.7 % (36.0-47.0); HEMOGLOBIN 10.3 g/dl (12.0-15.5); LYMPH # 0.6 10^3/uL (1.5-4.5); LYMPH % 8.9 % (24.0-44.0); MEAN CORPUSCULAR HEMOGLOBIN 31.1 pg (27.0-33.0); MEAN CORPUSCULAR HGB CONC 32.5 g/dl (32.0-36.5); MEAN CORPUSCULAR VOLUME 95.8 fl (80.0-96.0); MONO # 0.5 10^3/uL (0.0-0.8); MONO % 7.3 % (0.0-5.0); NEUTROPHILS # 5.4 10^3/uL (1.8-7.7); NEUTROPHILS % 80.4 % (36.0-66.0); PLATELET COUNT, AUTOMATED 215 10^3/uL (150-450); RED BLOOD COUNT 3.31 10^6/uL (4.00-5.40); WHITE BLOOD COUNT 6.7 10^3/uL (4.0-10.0)
== END ==
LOC: M SMT 10:05
PROVIDERS: ATTEND Psychiatry & Neurology Psychiatry
DX: F20.81 Schizophreniform disorder (principal)

== ENCOUNTER 2018-10-08 07:51 | Day surgery (SDC) | payer MEDICARE, MEDICAID ==
[~2018-10-08] VITALS: Ht 167.6 cm; Wt 93.9 kg
[~2018-10-08 07:51] MED LIST changes: +LR 1,000 ML IV ONE
[2018-10-08] MEDS ORDERED: ceFAZolin 1GM INJ (J0690 PER 500MG) As Ordered ONE (08:06)
[2018-10-08] MEDS ORDERED: PROPOFOL 200 MG/20 ML VIAL As Ordered ONE (08:07)
[2018-10-08] MEDS ORDERED: LIDOCAINE 2% INJ 100 MG/5 ML SDV (FOR ANES.) As Ordered ONE (08:07)
[2018-10-08] MEDS ORDERED: fentaNYL 100 MCG/2 ML INJECTION (J3010) As Ordered ONE (08:08)
[2018-10-08] MEDS ORDERED: MIDAZOLAM INJ 2 MG/2 ML VIAL (J2250) As Ordered ONE (08:09)
[2018-10-08] MEDS ORDERED: ONDANSETRON 4MG/2ML VIAL (J2405) As Ordered ONE (08:09)
[2018-10-08] MEDS ORDERED: BACITRACIN OINT 30GM As Ordered ONE (09:01)
[2018-10-08] MEDS ORDERED: LIDOCAINE W/EPINEPHRINE 1% 20ML VIAL As Ordered ONE (09:02)
[2018-10-08] MEDS ORDERED: LIDOCAINE 2% W/EPIN INJ 20ML **PRES FREE As Ordered ONE (09:08)
[2018-10-08] MEDS ORDERED: dexameTHASONE 4 MG/ML 1ML VIAL (J1100) As Ordered ONE (09:52)
[2018-10-08] MEDS ORDERED: PHENYLephrine HCL 500 MCG/5 ML (100MCG/ML) SYRINGE (J2370) As Ordered ONE (10:04)
--- NOTE | 2018-10-08 11:00 | POST-OPPD ---
Postoperative Procedure Note Date Of Procedure: Oct 08, 2018 PREOPERATIVE DIAGNOSIS: Left cheek mass POSTOPERATIVE DIAGNOSIS: same FINDINGS: Left cheek mass, SCC PROCEDURE: Excision left cheek malignant lesion SURGEON: Dr Negro ANESTHESIA: General SPECIMENS: Left cheek mass (FS), additional margines, Superior margine ESTIMATED BLOOD LOSS: 5cc REPLACED: none DRAINS: none COMPLICATIONS: none POSTOPERATIVE CONDITION: Stable to recovery. OCHOA NEGRO DO Oct 08, 2018 11:00
[2018-10-08] MEDS ORDERED: NORCO, ANEXSIA 5/325MG TABLET (HYDROcodone/ACETAMINOPHEN) PO PRN (11:30)
[2018-10-08] MEDS ORDERED: ONDANSETRON 4MG/2ML VIAL (J2405) IV PRN (11:30)
[2018-10-08] MEDS ORDERED: LR 1,000 ML IV SCH (11:30)
[2018-10-08] MEDS ORDERED: fentaNYL 100 MCG/2 ML INJECTION (J3010) IV PRN (11:30)
[2018-10-08 11:45] VITALS: BP 138/67
--- NOTE | 2018-10-08 14:27 | RO ---
DATE OF PROCEDURE: 10/08/2018 PREPROCEDURE DIAGNOSIS: Left cheek mass. POSTPROCEDURE DIAGNOSIS: Left cheek mass. PROCEDURE: Excision of left cheek malignant lesion mass. SURGEON: Dr. Elaine Hall. MARINE TECHNICIAN: ANESTHESIA: General. SPECIMENS SENT: Left cheek mass for frozen section. Then a second specimen additional margins permanent and another specimen superior margins permanent. ESTIMATED BLOOD LOSS: 5 mL. There was no replacement needed. Patient tolerated the procedure well and transferred to the recovery room in stable condition. DESCRIPTION OF PROCEDURE: This is a 68-year-old female who presents with rapidly growing mass on her left cheek. Patient states that it started as a small pimple in June of 2019 and now it is rapidly enlarging. Patient refused to have a biopsy analysis and she wishes to have excision biopsy with clear margins and reconstruction all at once under general anesthesia. All the risks, benefits and alternatives discussed with the patient. She is ready to proceed. In the preoperative holding area, she was marked. Her daughter is present and informed consent was confirmed with the patient and the daughter and she is ready to proceed. We brought her into the operating room, placed her in the supine position, sequential stockings placed on the calves and antibiotics were given and general anesthesia was induced. She was prepped and draped in the usual sterile fashion. We measured the lesion. It is 1.5 x 2 cm, so we outlined the edges of the lesion plus 2 mm margins and 1% lidocaine with epinephrine was infiltrated in that area and then the lesion was excised in all entirety to the suture marking 12-o'clock position. The lesion sent to pathology and while the pathologist was working, hemostasis was obtained with electrocautery. Pathology cleared the specimen as being with clear margins but it is squamous cell carcinoma. Additional margin of 2 mm was resected and sent to pathology and there was still a small area of a questionable skin superiorly as well which was also sent as an additional superior margin. The edges of the wound were undermined in a subcuticular layer using Lippmann's scissors under direct vision and then excess skin in the form of a dog ear was excised superiorly and inferiorly. Then the wound was approximated with layered closure of #4-0 Vicryl sutures, #5-0 Monocryl and a #5-0 plain. Steri-Strips were applied. Good approximation achieved. The patient was awakened in the operating room without any difficulties, transferred to the recovery room in stable condition.
== END 2018-10-08 12:22 | disposition home or self-care (01) ==
LOC: M SDC 07:51
PROVIDERS: ATTEND Plastic Surgery Surgery of the Hand
DX: C44.329 Squamous cell carcinoma of skin of other parts of face (principal); L57.0 Actinic keratosis; L57.8 Other skin changes due to chronic exposure to nonionizing radiation; G20 Parkinson's disease; E78.5 Hyperlipidemia, unspecified; K21.9 Gastro-esophageal reflux disease without esophagitis; F41.9 Anxiety disorder, unspecified; F32.9 Major depressive disorder, single episode, unspecified; Z79.82 Long term (current) use of aspirin; Z79.899 Other long term (current) drug therapy
CPT/HCPCS: 11642; 88305; 88331; 88332; J1100; J2250; J2370; J2405; J3010

== ENCOUNTER → 2018-10-23 | Outpatient (REF) | payer MEDICARE, MEDICAID ==
[~2018-10-23] MED LIST changes: -/WARF5TA OR; +COUM1TAB17 OR; -LR 1,000 ML IV ONE; +VENL-65 PO; -VENL75TA3 PO
[2018-10-23 09:56] LABS: BASO % 0.3 % (0.0-1.0); EOS # 0.3 10^3/uL (0.0-0.50); EOS % 4.8 % (0.0-3.0); HEMATOCRIT 32.4 % (36.0-47.0); HEMOGLOBIN 10.7 g/dl (12.0-15.5); LYMPH # 0.8 10^3/uL (1.5-4.5); LYMPH % 11.8 % (24.0-44.0); MEAN CORPUSCULAR VOLUME 93.9 fl (80.0-96.0); MONO # 0.5 10^3/uL (0.0-0.8); MONO % 7.4 % (0.0-5.0); NEUTROPHILS # 4.9 10^3/uL (1.8-7.7); NEUTROPHILS % 75.4 % (36.0-66.0); PLATELET COUNT, AUTOMATED 220 10^3/uL (150-450); RED BLOOD COUNT 3.45 10^6/uL (4.00-5.40); WHITE BLOOD COUNT 6.5 10^3/uL (4.0-10.0)
== END ==
PROVIDERS: ATTEND Psychiatry & Neurology Psychiatry
DX: F16.151 Hallucinogen abuse with hallucinogen-induced psychotic disorder with hallucinations (principal)

== ENCOUNTER → 2018-11-14 | Outpatient (CLI) | payer MEDICARE, MEDICAID ==
--- NOTE | 2018-11-14 11:35 | REP ---
Right lower extremity Duplex Doppler venous ultrasound: Real time compression and duplex Doppler interrogation of the right lower extremity deep venous system is performed. The right common femoral, superficial femoral and popliteal veins are fully compressible with transducer pressure and demonstrate normal spontaneous and phasic flow, without evidence of deep venous thrombosis. Impression: No evidence of deep venous thrombosis of the right lower extremity femoral popliteal venous system. Electronically Signed by Fran Castillo MD 11/14/2018 11:27 A
== END ==
LOC: M RAD 10:37
PROVIDERS: ATTEND Dermatology
DX: I87.2 Venous insufficiency (chronic) (peripheral) (principal); R22.41 Localized swelling, mass and lump, right lower limb; Z85.828 Personal history of other malignant neoplasm of skin

== ENCOUNTER → 2018-11-14 | Outpatient (REF) | payer MEDICARE, MEDICAID ==
[~2018-11-14] MED LIST changes: +/WARF5TA OR; -COUM1TAB17 OR; -VENL-65 PO; +VENL75TA3 PO
== END ==
LOC: M SFHCPLAZ 17:33
PROVIDERS: ATTEND Dermatology
DX: D04.39 Carcinoma in situ of skin of other parts of face (principal)

== ENCOUNTER → 2018-11-20 | Outpatient (REF) | payer MEDICARE, MEDICAID ==
[~2018-11-20] MED LIST changes: -/WARF5TA OR; +COUM1TAB17 OR; +VENL-65 PO; -VENL75TA3 PO
[2018-11-20 10:37] LABS: BASO % 0.8 % (0.0-1.0); EOS # 0.3 10^3/uL (0.0-0.50); EOS % 5.1 % (0.0-3.0); HEMATOCRIT 32.6 % (36.0-47.0); HEMOGLOBIN 10.4 g/dl (12.0-15.5); LYMPH % 20.6 % (24.0-44.0); MEAN CORPUSCULAR HEMOGLOBIN 30.9 pg (27.0-33.0); MEAN CORPUSCULAR HGB CONC 31.9 g/dl (32.0-36.5); MEAN CORPUSCULAR VOLUME 96.7 fl (80.0-96.0); MONO # 0.5 10^3/uL (0.0-0.8); MONO % 9.2 % (0.0-5.0); NEUTROPHILS # 3.1 10^3/uL (1.8-7.7); NEUTROPHILS % 63.9 % (36.0-66.0); PLATELET COUNT, AUTOMATED 264 10^3/uL (150-450); RED BLOOD COUNT 3.37 10^6/uL (4.00-5.40); WHITE BLOOD COUNT 4.9 10^3/uL (4.0-10.0)
== END ==
PROVIDERS: ATTEND Psychiatry & Neurology Psychiatry
DX: F16.151 Hallucinogen abuse with hallucinogen-induced psychotic disorder with hallucinations (principal)

== ENCOUNTER → 2019-01-31 | Outpatient (REF) | payer MEDICARE, MEDICAID ==
[2019-01-31 13:34] LABS: APPEARANCE, URINE CLEAR (CLEAR); BACTERIA, URINE AUTO 1+ (NEGATIVE); BILIRUBIN, URINE AUTO NEGATIVE (NEGATIVE); BLOOD, URINE BLOOD NEGATIVE (NEGATIVE); COLOR, URINE STRAW (YELLOW); GLUCOSE, URINE (UA) AUTO NEGATIVE (NEGATIVE); KETONE, URINE AUTO NEGATIVE (NEGATIVE); LEUKOCYTE ESTERASE, URINE AUTO NEGATIVE (NEGATIVE); NITRITE, URINE AUTO NEGATIVE (NEGATIVE); PROTEIN, URINE AUTO NEGATIVE (NEGATIVE); RBC, URINE AUTO 0 /HPF (0-3); SPECIFIC GRAVITY URINE AUTO 1.004 (1.002-1.035); SQUAMOUS EPITHELIAL CELL UR AU 0 /HPF (0-6); UROBILINOGEN, URINE AUTO 0.2 mg/dL (0.0-2.0); WBC, URINE AUTO 0 /HPF (0-3)
== END ==
PROVIDERS: ATTEND Internal Medicine
DX: N39.44 Nocturnal enuresis (principal)

== ENCOUNTER → 2019-02-12 | Outpatient (REF) | payer MEDICARE, MEDICAID ==
[~2019-02-12] MED LIST changes: -OMEP40CA2 PO; +OMEP40CA97 PO
[2019-02-12 09:23] LABS: BASO % 0.5 % (0.0-1.0); EOS # 0.2 10^3/uL (0.0-0.50); EOS % 5.5 % (0.0-3.0); HEMATOCRIT 32.9 % (36.0-47.0); HEMOGLOBIN 10.7 g/dl (12.0-15.5); LYMPH # 0.7 10^3/uL (1.5-4.5); LYMPH % 16.7 % (24.0-44.0); MEAN CORPUSCULAR HEMOGLOBIN 31.8 pg (27.0-33.0); MEAN CORPUSCULAR HGB CONC 32.5 g/dl (32.0-36.5); MEAN CORPUSCULAR VOLUME 97.6 fl (80.0-96.0); MONO # 0.4 10^3/uL (0.0-0.8); MONO % 8.8 % (0.0-5.0); NEUTROPHILS # 2.9 10^3/uL (1.8-7.7); PLATELET COUNT, AUTOMATED 202 10^3/uL (150-450); RED BLOOD COUNT 3.37 10^6/uL (4.00-5.40); WHITE BLOOD COUNT 4.2 10^3/uL (4.0-10.0)
== END ==
PROVIDERS: ATTEND Psychiatry & Neurology Psychiatry
DX: F16.151 Hallucinogen abuse with hallucinogen-induced psychotic disorder with hallucinations (principal)

== ENCOUNTER → 2019-02-27 | Outpatient (REF) | payer MEDICARE, MEDICAID ==
[~2019-02-27] MED LIST changes: +OMEP40CA2 PO; -OMEP40CA97 PO
[2019-02-27 10:22] LABS: ALBUMIN 3.5 GM/DL (3.2-5.2); ALT/SGPT 10 U/L (12-78); BILIRUBIN,TOTAL 0.4 MG/DL (0.2-1.0); BLOOD UREA NITROGEN 19 MG/DL (7-18); CALCIUM LEVEL 8.6 MG/DL (8.8-10.2); CARBON DIOXIDE LEVEL 24 MEQ/L (21-32); CHLORIDE LEVEL 111 MEQ/L (98-107); CREATININE FOR GFR 1.18 MG/DL (0.55-1.30); GLOMERULAR FILTRATION RATE 48.2 (>39); GLUCOSE, FASTING 87 MG/DL (70-100); POTASSIUM SERUM 3.8 MEQ/L (3.5-5.1); SODIUM LEVEL 145 MEQ/L (136-145); TOTAL PROTEIN 6.6 GM/DL (6.4-8.2)
[2019-02-28 11:15] LABS: ALBUMIN 3.74 GM/DL (3.29-5.55); ALBUMIN % 56.7 % (55.8-66.1); ALPHA-1-GLOBULIN % 5.2 % (2.9-4.9); ALPHA-1-GLOBULINS 0.34 GM/DL (0.17-0.41); ALPHA-2-GLOBULINS 0.67 GM/DL (0.42-0.99); ALPHA-2-GLOBULINS % 10.1 % (7.1-11.8); BETA-1-GLOBULINS % 7.5 % (4.7-7.2); BETA-2-GLOBULINS 0.51 GM/DL (0.19-0.55); BETA-2-GLOBULINS % 7.7 % (3.2-6.5); GAMMA GLOBULIN % 12.8 % (11.1-18.8); GAMMA GLOBULINS 0.84 GM/DL (0.65-1.58)
[2019-03-01 09:21] LABS: BETA 2 MICROGLOBULIN 2.4 mg/L (0.6-2.4); FREE KAPPA LIGHT CHAINS SERUM 24.9 mg/L (3.3-19.4); FREE LAMBDA LIGHT CHAINS SERUM 18.1 mg/L (5.7-26.3); KAPPA/LAMBDA RATIO SERUM 1.38 (0.26-1.65)
== END ==
PROVIDERS: ATTEND Internal Medicine
DX: D47.2 Monoclonal gammopathy (principal); G20 Parkinson's disease

== ENCOUNTER → 2019-03-15 | Outpatient (REF) | payer MEDICARE, MEDICAID | LOC: M SFHCPLAZ 16:49 | PROVIDERS: ATTEND Dermatology | DX: C44.320 Squamous cell carcinoma of skin of unspecified parts of face (principal) ==

== ENCOUNTER → 2019-03-20 | Outpatient (REF) | payer MEDICARE, MEDICAID ==
[2019-03-20 08:59] LABS: BASO % 0.6 % (0.0-1.0); EOS # 0.3 10^3/uL (0.0-0.50); HEMATOCRIT 33.9 % (36.0-47.0); HEMOGLOBIN 10.9 g/dl (12.0-15.5); LYMPH % 16.2 % (24.0-44.0); MEAN CORPUSCULAR HEMOGLOBIN 30.3 pg (27.0-33.0); MEAN CORPUSCULAR HGB CONC 32.2 g/dl (32.0-36.5); MEAN CORPUSCULAR VOLUME 94.2 fl (80.0-96.0); MONO # 0.4 10^3/uL (0.0-0.8); MONO % 6.7 % (0.0-5.0); NEUTROPHILS # 4.5 10^3/uL (1.8-7.7); NEUTROPHILS % 72.2 % (36.0-66.0); PLATELET COUNT, AUTOMATED 278 10^3/uL (150-450); WHITE BLOOD COUNT 6.3 10^3/uL (4.0-10.0)
== END ==
PROVIDERS: ATTEND Psychiatry & Neurology Psychiatry
DX: Z79.899 Other long term (current) drug therapy (principal)

== ENCOUNTER → 2019-03-29 | Outpatient (CLI) | payer MEDICARE, MEDICAID ==
--- NOTE | 2019-03-29 12:32 | REPMRS ---
Patient History The patient states she has not had a clinical breast exam in over a year. Patient is postmenopausal and has history of other cancer at age 68. No known family history of cancer. Benign US guided breast biopsy of the left breast, September 26, 2016. Digital Woman Screen Mammo: March 29, 2019 - Exam #: [id number] Bilateral CC and MLO view(s) were taken. Technologist: Shanell Morley, Technologist Prior study comparison: September 26, 2016, left breast digital mammo diagnostic unilateral, performed at [facility]. FINDINGS: There are scattered fibroglandular densities. There is a needle biopsy marker clip in the lateral aspect of the left breast unchanged. There has been no change in the appearance of the mammogram from the prior studies. There is a mild amount of scattered fibroglandular density which is fairly symmetric. There is no interval development of dominant mass, architectural distortion, or grouped microcalcification suggestive of malignancy. 3-D tomosynthesis shows no additional findings. Assessment: BI-RADS/ACR category 2 mammogram. Benign Findings. Recommendation Routine screening mammogram of both breasts in 1 year (for women over age 40). This patient's Lifetime Breast Cancer Risk is estimated at 3.4 %. This mammogram was interpreted with the aid of an FDA-approved computer-aided dectection system. Electronically Signed By: Justin Chandra MD 03/29/19 [id number]
--- NOTE | 2019-04-02 14:56 | DEXA ---
AP SPINE L1 - L4 1.287 0.7 2.4 LT FEMUR TOTAL Left hip replacement. LT NECK N/A RT FEMUR TOTAL 0.767 -1.9 -0.4 RT NECK 0.834 -1.5 -0.3 TOTAL BODY TOTAL OTHER COMMENTS: Normal bone densitometry of the spine. There is low bone density of the right hip. The increased density of the spine does not represent a significant change. The increased density of the right hip does not represent a significant change. The density of the spine has increased 19.1% since the initial exam on 01/07/2000. The spine density has increased 1.5% since the most recent exam on 05/08/2012. The density of the left hip is N/A. The density of the right hip has increased 18.3% since the initial exam on 01/05/2004. The density of the right hip has increased 1.3% in the most recent exam on 05/08/2012. FOLLOW-UP: Recommendation for the next bone density exam: 2 years. VICTOR HUGO
== END ==
LOC: M WHC 10:46
PROVIDERS: ATTEND Internal Medicine
DX: Z12.31 Encounter for screening mammogram for malignant neoplasm of breast (principal); M85.859 Other specified disorders of bone density and structure, unspecified thigh; Z78.0 Asymptomatic menopausal state; Z85.9 Personal history of malignant neoplasm, unspecified

== ENCOUNTER → 2019-04-16 | Outpatient (REF) | payer MEDICARE, MEDICAID ==
[2019-04-16 10:42] LABS: BASO % 0.6 % (0.0-1.0); EOS # 0.2 10^3/uL (0.0-0.50); EOS % 3.9 % (0.0-3.0); HEMATOCRIT 33.5 % (36.0-47.0); HEMOGLOBIN 10.6 g/dl (12.0-15.5); LYMPH % 17.6 % (24.0-44.0); MEAN CORPUSCULAR HEMOGLOBIN 31.5 pg (27.0-33.0); MEAN CORPUSCULAR HGB CONC 31.6 g/dl (32.0-36.5); MEAN CORPUSCULAR VOLUME 99.4 fl (80.0-96.0); MONO # 0.4 10^3/uL (0.0-0.8); MONO % 8.1 % (0.0-5.0); NEUTROPHILS # 3.8 10^3/uL (1.8-7.7); NEUTROPHILS % 69.6 % (36.0-66.0); PLATELET COUNT, AUTOMATED 226 10^3/uL (150-450); RED BLOOD COUNT 3.37 10^6/uL (4.00-5.40); WHITE BLOOD COUNT 5.4 10^3/uL (4.0-10.0)
== END ==
PROVIDERS: ATTEND Psychiatry & Neurology Psychiatry
DX: Z51.81 Encounter for therapeutic drug level monitoring (principal); Z79.899 Other long term (current) drug therapy

== ENCOUNTER → 2019-05-14 | Outpatient (REF) | payer MEDICARE, MEDICAID ==
[2019-05-14 11:00] LABS: BASO % 0.4 % (0.0-1.0); EOS # 0.2 10^3/uL (0.0-0.5); EOS % 3.8 % (0.0-3.0); HEMATOCRIT 31.3 % (36.0-47.0); LYMPH # 0.6 10^3/uL (1.5-5.0); LYMPH % 11.3 % (24.0-44.0); MEAN CORPUSCULAR HEMOGLOBIN 30.9 pg (27.0-33.0); MEAN CORPUSCULAR HGB CONC 31.9 g/dl (32.0-36.5); MEAN CORPUSCULAR VOLUME 96.6 fl (80.0-96.0); MONO # 0.4 10^3/uL (0.0-0.8); MONO % 7.9 % (0.0-5.0); NEUTROPHILS # 4.2 10^3/uL (1.5-8.5); NEUTROPHILS % 76.2 % (36.0-66.0); PLATELET COUNT, AUTOMATED 217 10^3/uL (150-450); RED BLOOD COUNT 3.24 10^6/uL (4.00-5.40); WHITE BLOOD COUNT 5.6 10^3/uL (4.0-10.0)
== END ==
PROVIDERS: ATTEND Psychiatry & Neurology Psychiatry
DX: Z51.81 Encounter for therapeutic drug level monitoring (principal); Z79.899 Other long term (current) drug therapy

== ENCOUNTER → 2019-05-28 | Outpatient (REF) | payer MEDICARE, MEDICAID | LOC: M SFHCPLAZ 17:18 | PROVIDERS: ATTEND Dermatology | DX: L90.5 Scar conditions and fibrosis of skin (principal); L57.8 Other skin changes due to chronic exposure to nonionizing radiation ==

== ENCOUNTER → 2019-06-11 | Outpatient (REF) | payer MEDICARE, MEDICAID ==
[2019-06-11 09:28] LABS: BASO % 0.8 % (0.0-1.0); EOS # 0.2 10^3/uL (0.0-0.5); EOS % 4.9 % (0.0-3.0); HEMATOCRIT 33.6 % (36.0-47.0); HEMOGLOBIN 10.8 g/dl (12.0-15.5); LYMPH # 1.2 10^3/uL (1.5-5.0); LYMPH % 23.7 % (24.0-44.0); MEAN CORPUSCULAR HEMOGLOBIN 30.9 pg (27.0-33.0); MEAN CORPUSCULAR HGB CONC 32.1 g/dl (32.0-36.5); MEAN CORPUSCULAR VOLUME 96.3 fl (80.0-96.0); MONO # 0.3 10^3/uL (0.0-0.8); MONO % 6.9 % (0.0-5.0); NEUTROPHILS # 3.1 10^3/uL (1.5-8.5); NEUTROPHILS % 63.5 % (36.0-66.0); PLATELET COUNT, AUTOMATED 222 10^3/uL (150-450); RED BLOOD COUNT 3.49 10^6/uL (4.00-5.40); WHITE BLOOD COUNT 4.9 10^3/uL (4.0-10.0)
== END ==
PROVIDERS: ATTEND Psychiatry & Neurology Psychiatry
DX: Z51.81 Encounter for therapeutic drug level monitoring (principal); Z79.899 Other long term (current) drug therapy

== ENCOUNTER → 2019-07-09 | Outpatient (REF) | payer MEDICARE, MEDICAID ==
[~2019-07-09] MED LIST changes: -OMEP40CA2 PO; +OMEP40CA97 PO
[2019-07-09 08:49] LABS: BASO % 0.5 % (0.0-1.0); EOS # 0.2 10^3/uL (0.0-0.5); EOS % 2.7 % (0.0-3.0); HEMATOCRIT 33.8 % (36.0-47.0); HEMOGLOBIN 10.7 g/dl (12.0-15.5); LYMPH # 1.2 10^3/uL (1.5-5.0); LYMPH % 20.3 % (24.0-44.0); MEAN CORPUSCULAR HEMOGLOBIN 30.9 pg (27.0-33.0); MEAN CORPUSCULAR HGB CONC 31.7 g/dl (32.0-36.5); MEAN CORPUSCULAR VOLUME 97.7 fl (80.0-96.0); MONO # 0.5 10^3/uL (0.0-0.8); MONO % 8.8 % (0.0-5.0); NEUTROPHILS # 4.1 10^3/uL (1.5-8.5); NEUTROPHILS % 67.5 % (36.0-66.0); PLATELET COUNT, AUTOMATED 235 10^3/uL (150-450); RED BLOOD COUNT 3.46 10^6/uL (4.00-5.40)
== END ==
PROVIDERS: ATTEND Psychiatry & Neurology Psychiatry
DX: Z79.899 Other long term (current) drug therapy (principal)

== ENCOUNTER → 2019-08-01 | Outpatient (REF) | payer MEDICARE, MEDICAID ==
[2019-08-01 17:24] LABS: ALBUMIN 3.6 GM/DL (3.2-5.2); BILIRUBIN,TOTAL 0.4 MG/DL (0.2-1.0); CALCIUM LEVEL 8.7 MG/DL (8.8-10.2); CHOLESTEROL RISK RATIO 3.071 (<5); CREATININE FOR GFR 1.08 MG/DL (0.55-1.30); GLOMERULAR FILTRATION RATE 53.2 (>39); POTASSIUM SERUM 3.9 MEQ/L (3.5-5.1); THYROID STIMULATING HORMONE 0.479 uIU/ML (0.358-3.740); TOTAL PROTEIN 6.9 GM/DL (6.4-8.2)
== END ==
LOC: M SFHCPLAZ 14:26
PROVIDERS: ATTEND Internal Medicine
DX: D47.2 Monoclonal gammopathy (principal); E78.00 Pure hypercholesterolemia, unspecified; F34.1 Dysthymic disorder; E53.8 Deficiency of other specified B group vitamins

== ENCOUNTER → 2019-08-06 | Outpatient (REF) | payer MEDICARE, MEDICAID ==
[2019-08-06 10:39] LABS: BASO % 0.6 % (0.0-1.0); EOS # 0.2 10^3/uL (0.0-0.5); EOS % 3.2 % (0.0-3.0); HEMATOCRIT 35.7 % (36.0-47.0); HEMOGLOBIN 11.2 g/dl (12.0-15.5); LYMPH # 0.8 10^3/uL (1.5-5.0); MEAN CORPUSCULAR HEMOGLOBIN 31.4 pg (27.0-33.0); MEAN CORPUSCULAR HGB CONC 31.4 g/dl (32.0-36.5); MONO # 0.5 10^3/uL (0.0-0.8); MONO % 8.6 % (0.0-5.0); NEUTROPHILS # 3.9 10^3/uL (1.5-8.5); NEUTROPHILS % 72.4 % (36.0-66.0); PLATELET COUNT, AUTOMATED 234 10^3/uL (150-450); RED BLOOD COUNT 3.57 10^6/uL (4.00-5.40); WHITE BLOOD COUNT 5.3 10^3/uL (4.0-10.0)
== END ==
PROVIDERS: ATTEND Psychiatry & Neurology Psychiatry
DX: F43.25 Adjustment disorder with mixed disturbance of emotions and conduct (principal); F06.0 Psychotic disorder with hallucinations due to known physiological condition; G20 Parkinson's disease; Z79.899 Other long term (current) drug therapy
CPT/HCPCS: 36415; 85025; G0463

== ENCOUNTER → 2019-08-15 | Outpatient (REF) | payer MEDICARE, MEDICAID ==
[2019-08-16 11:48] LABS: AMORPHOUS SEDIMENT SMALL (NEGATIVE); APPEARANCE, URINE CLOUDY (CLEAR); BACTERIA, URINE AUTO NEGATIVE (NEGATIVE); BILIRUBIN, URINE AUTO NEGATIVE (NEGATIVE); BLOOD, URINE BLOOD NEGATIVE (NEGATIVE); CALCIUM OXALATE CRYSTALS SMALL; COLOR, URINE AMBER (YELLOW); GLUCOSE, URINE (UA) AUTO NEGATIVE (NEGATIVE); KETONE, URINE AUTO TRACE mg/dL (NEGATIVE); LEUKOCYTE ESTERASE, URINE AUTO NEGATIVE (NEGATIVE); MUCUS, URINE SMALL (NEGATIVE); NITRITE, URINE AUTO NEGATIVE (NEGATIVE); PROTEIN, URINE AUTO 1+ mg/dL (NEGATIVE); RBC, URINE AUTO 89 /HPF (0-3); SQUAMOUS EPITHELIAL CELL UR AU 4 /HPF (0-6); WBC, URINE AUTO 1 /HPF (0-3)
== END ==
PROVIDERS: ATTEND Internal Medicine
DX: R30.0 Dysuria (principal)

== ENCOUNTER → 2019-08-19 | Outpatient (REF) | payer MEDICARE, MEDICAID ==
[2019-08-19 15:39] LABS: APPEARANCE, URINE CLOUDY (CLEAR); BACTERIA, URINE AUTO NEGATIVE (NEGATIVE); BILIRUBIN, URINE AUTO NEGATIVE (NEGATIVE); BLOOD, URINE BLOOD NEGATIVE (NEGATIVE); CALCIUM OXALATE CRYSTALS SMALL; COLOR, URINE AMBER (YELLOW); GLUCOSE, URINE (UA) AUTO NEGATIVE (NEGATIVE); KETONE, URINE AUTO TRACE mg/dL (NEGATIVE); LEUKOCYTE ESTERASE, URINE AUTO NEGATIVE (NEGATIVE); MUCUS, URINE SMALL (NEGATIVE); NITRITE, URINE AUTO NEGATIVE (NEGATIVE); PROTEIN, URINE AUTO 1+ mg/dL (NEGATIVE); RBC, URINE AUTO 53 /HPF (0-3); SPECIFIC GRAVITY URINE AUTO 1.021 (1.002-1.035); SQUAMOUS EPITHELIAL CELL UR AU 14 /HPF (0-6); WBC, URINE AUTO 4 /HPF (0-3)
== END ==
PROVIDERS: ATTEND Internal Medicine
DX: R30.0 Dysuria (principal)

== ENCOUNTER → 2019-09-03 | Outpatient (REF) | payer MEDICARE, MEDICAID ==
[2019-09-03 11:29] LABS: ALBUMIN 3.3 GM/DL (3.2-5.2); ALT/SGPT 19 U/L (12-78); BILIRUBIN,TOTAL 0.5 MG/DL (0.2-1.0); BLOOD UREA NITROGEN 17 MG/DL (7-18); CALCIUM LEVEL 8.8 MG/DL (8.8-10.2); CARBON DIOXIDE LEVEL 27 MEQ/L (21-32); CHLORIDE LEVEL 108 MEQ/L (98-107); CHOLESTEROL LEVEL 211 MG/DL (<200); CHOLESTEROL RISK RATIO 3.836 (<5); CREATININE FOR GFR 1.15 MG/DL (0.55-1.30); GLOMERULAR FILTRATION RATE 49.5 (>39); GLUCOSE, FASTING 87 MG/DL (70-100); HDL CHOLESTEROL 55 MG/DL (>40); LDL CHOLESTEROL 121 MG/DL (<100); NON-HDL-C 156 MG/DL; POTASSIUM SERUM 3.8 MEQ/L (3.5-5.1); SODIUM LEVEL 145 MEQ/L (136-145); TOTAL PROTEIN 6.5 GM/DL (6.4-8.2); TRIGLYCERIDES LEVEL 174 MG/DL (<150); VITAMIN B12 LEVEL 768 PG/ML (247-911)
[2019-09-07 11:00] LABS: BETA 2 MICROGLOBULIN 2.5 mg/L (0.6-2.4); FREE KAPPA LIGHT CHAINS SERUM 20.2 mg/L (3.3-19.4); FREE LAMBDA LIGHT CHAINS SERUM 16.2 mg/L (5.7-26.3); KAPPA/LAMBDA RATIO SERUM 1.25 (0.26-1.65)
[2019-09-09 14:34] LABS: ALBUMIN 3.74 GM/DL (3.29-5.55); ALBUMIN % 57.5 % (55.8-66.1); ALPHA-1-GLOBULIN % 5.1 % (2.9-4.9); ALPHA-1-GLOBULINS 0.33 GM/DL (0.17-0.41); ALPHA-2-GLOBULINS 0.66 GM/DL (0.42-0.99); ALPHA-2-GLOBULINS % 10.1 % (7.1-11.8); BETA-1-GLOBULINS % 7.5 % (4.7-7.2); GAMMA GLOBULIN % 11.8 % (11.1-18.8)
[2019-09-09 14:35] LABS: BETA-1-GLOBULINS 0.49 GM/DL (0.28-0.60); BETA-2-GLOBULINS 0.52 GM/DL (0.19-0.55); GAMMA GLOBULINS 0.77 GM/DL (0.65-1.58)
== END ==
PROVIDERS: ATTEND Internal Medicine
DX: D47.2 Monoclonal gammopathy (principal); E78.5 Hyperlipidemia, unspecified; E53.8 Deficiency of other specified B group vitamins

== ENCOUNTER → 2019-09-03 | Outpatient (REF) | payer MEDICARE, MEDICAID ==
[2019-09-03 10:51] LABS: BASO % 0.8 % (0.0-1.0); EOS # 0.2 10^3/uL (0.0-0.5); EOS % 4.3 % (0.0-3.0); HEMATOCRIT 34.8 % (36.0-47.0); LYMPH # 0.8 10^3/uL (1.5-5.0); LYMPH % 15.4 % (24.0-44.0); MEAN CORPUSCULAR HEMOGLOBIN 31.3 pg (27.0-33.0); MEAN CORPUSCULAR HGB CONC 31.6 g/dl (32.0-36.5); MEAN CORPUSCULAR VOLUME 98.9 fl (80.0-96.0); MONO # 0.4 10^3/uL (0.0-0.8); MONO % 8.7 % (0.0-5.0); NEUTROPHILS # 3.5 10^3/uL (1.5-8.5); NEUTROPHILS % 70.6 % (36.0-66.0); PLATELET COUNT, AUTOMATED 261 10^3/uL (150-450); RED BLOOD COUNT 3.52 10^6/uL (4.00-5.40); WHITE BLOOD COUNT 4.9 10^3/uL (4.0-10.0)
== END ==
PROVIDERS: ATTEND Psychiatry & Neurology Psychiatry
DX: Z51.81 Encounter for therapeutic drug level monitoring (principal); Z79.899 Other long term (current) drug therapy

== ENCOUNTER → 2019-10-01 | Outpatient (REF) | payer MEDICARE, MEDICAID ==
[2019-10-01 10:14] LABS: BASO % 0.5 % (0.0-1.0); EOS # 0.2 10^3/uL (0.0-0.5); EOS % 3.8 % (0.0-3.0); HEMATOCRIT 35.4 % (36.0-47.0); HEMOGLOBIN 10.9 g/dl (12.0-15.5); LYMPH # 0.7 10^3/uL (1.5-5.0); LYMPH % 16.5 % (24.0-44.0); MEAN CORPUSCULAR HEMOGLOBIN 30.7 pg (27.0-33.0); MEAN CORPUSCULAR HGB CONC 30.8 g/dl (32.0-36.5); MEAN CORPUSCULAR VOLUME 99.7 fl (80.0-96.0); MONO # 0.4 10^3/uL (0.0-0.8); MONO % 9.8 % (0.0-5.0); NEUTROPHILS # 2.9 10^3/uL (1.5-8.5); NEUTROPHILS % 69.2 % (36.0-66.0); PLATELET COUNT, AUTOMATED 197 10^3/uL (150-450); RED BLOOD COUNT 3.55 10^6/uL (4.00-5.40); WHITE BLOOD COUNT 4.2 10^3/uL (4.0-10.0)
== END ==
PROVIDERS: ATTEND Psychiatry & Neurology Psychiatry
DX: Z51.81 Encounter for therapeutic drug level monitoring (principal); Z79.899 Other long term (current) drug therapy

== ENCOUNTER → 2019-10-29 | Outpatient (REF) | payer MEDICARE, MEDICAID ==
[2019-10-29 12:31] LABS: BASO % 0.4 % (0.0-1.0); EOS # 0.2 10^3/uL (0.0-0.5); EOS % 3.7 % (0.0-3.0); HEMATOCRIT 31.5 % (36.0-47.0); HEMOGLOBIN 10.3 g/dl (12.0-15.5); LYMPH # 0.7 10^3/uL (1.5-5.0); LYMPH % 13.4 % (24.0-44.0); MEAN CORPUSCULAR HEMOGLOBIN 31.6 pg (27.0-33.0); MEAN CORPUSCULAR HGB CONC 32.7 g/dl (32.0-36.5); MEAN CORPUSCULAR VOLUME 96.6 fl (80.0-96.0); MONO # 0.4 10^3/uL (0.0-0.8); MONO % 8.6 % (0.0-5.0); NEUTROPHILS # 3.8 10^3/uL (1.5-8.5); NEUTROPHILS % 73.7 % (36.0-66.0); PLATELET COUNT, AUTOMATED 199 10^3/uL (150-450); RED BLOOD COUNT 3.26 10^6/uL (4.00-5.40); WHITE BLOOD COUNT 5.1 10^3/uL (4.0-10.0)
[2019-10-29 12:41] LABS: INR 1.04; PROTHROMBIN TIME 13.3 SECONDS (11.8-14.0)
[2019-10-29 13:04] LABS: ALBUMIN 3.4 GM/DL (3.2-5.2); BILIRUBIN,TOTAL 0.4 MG/DL (0.2-1.0); CALCIUM LEVEL 8.8 MG/DL (8.8-10.2); CREATININE FOR GFR 1.25 MG/DL (0.55-1.30); POTASSIUM SERUM 4.1 MEQ/L (3.5-5.1); TOTAL PROTEIN 6.4 GM/DL (6.4-8.2)
== END ==
PROVIDERS: ATTEND Internal Medicine
DX: M85.59 Aneurysmal bone cyst, multiple sites (principal); D47.2 Monoclonal gammopathy

== ENCOUNTER → 2019-11-26 | Outpatient (REF) | payer MEDICARE, MEDICAID ==
[2019-11-26 12:03] LABS: BASO % 0.4 % (0.0-1.0); EOS # 0.2 10^3/uL (0.0-0.5); EOS % 3.7 % (0.0-3.0); HEMOGLOBIN 10.2 g/dl (12.0-15.5); LYMPH # 0.7 10^3/uL (1.5-5.0); LYMPH % 13.4 % (24.0-44.0); MEAN CORPUSCULAR HEMOGLOBIN 31.2 pg (27.0-33.0); MEAN CORPUSCULAR HGB CONC 31.9 g/dl (32.0-36.5); MEAN CORPUSCULAR VOLUME 97.9 fl (80.0-96.0); MONO # 0.5 10^3/uL (0.0-0.8); MONO % 9.3 % (0.0-5.0); NEUTROPHILS # 3.8 10^3/uL (1.5-8.5); PLATELET COUNT, AUTOMATED 221 10^3/uL (150-450); RED BLOOD COUNT 3.27 10^6/uL (4.00-5.40); WHITE BLOOD COUNT 5.2 10^3/uL (4.0-10.0)
== END ==
PROVIDERS: ATTEND Psychiatry & Neurology Psychiatry
DX: Z79.899 Other long term (current) drug therapy (principal)

== ENCOUNTER → 2019-12-24 | Outpatient (REF) | payer MEDICARE, MEDICAID ==
[2019-12-24 12:27] LABS: BASO % 0.5 % (0.0-1.0); EOS # 0.2 10^3/uL (0.0-0.5); EOS % 3.8 % (0.0-3.0); HEMATOCRIT 33.4 % (36.0-47.0); HEMOGLOBIN 10.7 g/dl (12.0-15.5); LYMPH # 0.8 10^3/uL (1.5-5.0); LYMPH % 13.8 % (24.0-44.0); MEAN CORPUSCULAR HEMOGLOBIN 31.7 pg (27.0-33.0); MEAN CORPUSCULAR VOLUME 98.8 fl (80.0-96.0); MONO # 0.5 10^3/uL (0.0-0.8); MONO % 8.2 % (0.0-5.0); NEUTROPHILS # 4.1 10^3/uL (1.5-8.5); NEUTROPHILS % 73.5 % (36.0-66.0); PLATELET COUNT, AUTOMATED 191 10^3/uL (150-450); RED BLOOD COUNT 3.38 10^6/uL (4.00-5.40); WHITE BLOOD COUNT 5.6 10^3/uL (4.0-10.0)
== END ==
PROVIDERS: ATTEND Psychiatry & Neurology Psychiatry
DX: Z79.899 Other long term (current) drug therapy (principal)

== ENCOUNTER → 2020-01-21 | Outpatient (REF) | payer MEDICARE, MEDICAID ==
[2020-01-21 09:19] LABS: BASO % 0.4 % (0.0-1.0); EOS # 0.2 10^3/uL (0.0-0.5); EOS % 4.4 % (0.0-3.0); HEMATOCRIT 34.2 % (36.0-47.0); LYMPH % 21.1 % (24.0-44.0); MEAN CORPUSCULAR HEMOGLOBIN 31.5 pg (27.0-33.0); MEAN CORPUSCULAR HGB CONC 32.2 g/dl (32.0-36.5); MONO # 0.4 10^3/uL (0.0-0.8); MONO % 7.6 % (0.0-5.0); NEUTROPHILS # 3.1 10^3/uL (1.5-8.5); NEUTROPHILS % 66.3 % (36.0-66.0); PLATELET COUNT, AUTOMATED 233 10^3/uL (150-450); RED BLOOD COUNT 3.49 10^6/uL (4.00-5.40); WHITE BLOOD COUNT 4.7 10^3/uL (4.0-10.0)
== END ==
PROVIDERS: ATTEND Psychiatry & Neurology Psychiatry
DX: Z79.899 Other long term (current) drug therapy (principal)

== ENCOUNTER 2020-02-11 09:02 | Emergency (ER) | payer MEDICARE, MEDICAID ==
[~2020-02-11] VITALS: Ht 167.6 cm; Wt 103.7 kg
[~2020-02-11 09:02] MED LIST changes: -APAP325T4 PO; -ASPI81CH33 PO; -ASPI81TA85 PO; +ASPI81TA86 PO; -CYAN100050 PO; -MILKSUS3 PO; -MOME0.1O TOP; -NYST1POW9 TOP; -QUET1TAB7 PO; +QUET25TA3 PO; -RIVA1CAP3 PO; -TAB-TAB3 PO; -TRIA1CR80 TOP; -[UNRECOGNIZED DRUG - CODE] PO
[2020-02-11 09:38] LABS: BASO % 0.6 % (0.0-1.0); EOS # 0.1 10^3/uL (0.0-0.5); EOS % 1.9 % (0.0-3.0); HEMATOCRIT 33.6 % (36.0-47.0); HEMOGLOBIN 10.9 g/dl (12.0-15.5); LYMPH # 0.7 10^3/uL (1.5-5.0); LYMPH % 12.6 % (24.0-44.0); MEAN CORPUSCULAR HEMOGLOBIN 31.8 pg (27.0-33.0); MEAN CORPUSCULAR HGB CONC 32.4 g/dl (32.0-36.5); MONO # 0.3 10^3/uL (0.0-0.8); MONO % 6.3 % (0.0-5.0); NEUTROPHILS # 4.1 10^3/uL (1.5-8.5); NEUTROPHILS % 78.4 % (36.0-66.0); PLATELET COUNT, AUTOMATED 203 10^3/uL (150-450); RED BLOOD COUNT 3.43 10^6/uL (4.00-5.40); WHITE BLOOD COUNT 5.2 10^3/uL (4.0-10.0)
[2020-02-11] MEDS ORDERED: ASPI81CH33 PO (09:44)
[2020-02-11] MEDS ORDERED: RIVA1CAP3 PO (09:44)
[2020-02-11] MEDS ORDERED: MOME0.1O TOP (09:44)
[2020-02-11] MEDS ORDERED: TAB-TAB3 PO (09:44)
[2020-02-11] MEDS ORDERED: CYAN100050 PO (09:44)
[2020-02-11] MEDS ORDERED: [UNRECOGNIZED DRUG - CODE] PO (09:44)
[2020-02-11] MEDS ORDERED: NYST1POW9 TOP (09:44)
[2020-02-11] MEDS ORDERED: TRIA1CR80 TOP (09:44)
[2020-02-11] MEDS ORDERED: APAP325T4 PO ×2 (09:44)
[2020-02-11] MEDS ORDERED: MILKSUS3 PO (09:44)
[2020-02-11 09:50] LABS: INR 0.97; PROTHROMBIN TIME 12.6 SECONDS (11.8-14.0)
[2020-02-11 10:10] LABS: BLOOD UREA NITROGEN 18 MG/DL (7-18); CALCIUM LEVEL 8.9 MG/DL (8.8-10.2); CARBON DIOXIDE LEVEL 29 MEQ/L (21-32); CHLORIDE LEVEL 110 MEQ/L (98-107); CK-MB VALUE MASS 1.9 NG/ML (<3.6); CPK CREATINE PHOSPHOKINASE 178 U/L (26-192); CREATININE FOR GFR 1.19 MG/DL (0.55-1.30); FREE T4 0.93 NG/DL (0.76-1.46); GLOMERULAR FILTRATION RATE 47.6 (>39); GLUCOSE, FASTING 121 MG/DL (70-100); MAGNESIUM LEVEL 1.9 MG/DL (1.8-2.4); MB/CK RELATIVE INDEX 1.07 (< OR =4); POTASSIUM SERUM 3.8 MEQ/L (3.5-5.1); SODIUM LEVEL 146 MEQ/L (136-145); TROPONIN I < 0.02 NG/ML (< 0.10)
[2020-02-11] MEDS ORDERED: SINEMET 25-100 MG TAB PO ONE ×2 (10:45→11:00)
[2020-02-11] MEDS ORDERED: NS 1,000 ML IV ONE (10:45)
--- NOTE | 2020-02-11 11:41 | REP ---
REASON: Trauma. COMPARISON: 10/30/2015. TECHNIQUE: 4.5 mm contiguous transaxial sections were obtained from the skull base to the cerebral convexities with thin cuts through the posterior fossa without the administration of intravenous contrast. FINDINGS: The ventricles and sulci are consistent with the patient's age. There are no extra-axial fluid collections. There is no mass effect. The deep cerebral white matter is consistent with the patient's age. The orbital and petrous structures, cerebellopontine angles, and posterior fossa are unremarkable. The sella turcica, cavernous, and paracavernous structures are essentially unremarkable. The visualized portions of the paranasal sinuses and mastoid air cells are clear. Images of the skull base show no gross abnormality. IMPRESSION: Essentially unremarkable CT examination of the brain. There has been no significant change from the prior exam. There are age-related changes status quo. Electronically Signed by Kye Bower DO 02/11/2020 12:08 P
--- NOTE | 2020-02-11 11:42 | REP ---
REASON: Pain in the neck. The facet joints are well aligned bilaterally. Chronic facet and uncovertebral joint degenerative changes are seen bilaterally at every level. There is no acute fracture. There is degenerative disc space narrowing at every level with osteophytosis. There is no paraspinal soft tissue swelling. IMPRESSION: Chronic changes. No evidence of an acute fracture. Electronically Signed by Kye Bower DO 02/11/2020 12:08 P
--- NOTE | 2020-02-11 11:45 | REP ---
REASON: Syncopal episode. COMPARISON: 10/30/2015, the latest prior. The technique utilized in obtaining the radiograph has magnified the cardiac silhouette and accentuated the interstitial markings. Once again, there is elevation of the diaphragmatic surface of the right lung. There is new discoid opacity in the lower lobe. There are a few patchy opacities in the right lower lobe. There is minimal left CP angle blunting. The osseous structures are within normal limits. The heart is not enlarged. IMPRESSION: Bilateral lower lung field opacities as described above. Subsegmental atelectatic change versus pneumonia, particularly on the right. Correlate clinically. Electronically Signed by Kye Bower DO 02/11/2020 12:08 P
[2020-02-11 13:30] VITALS: BP 134/73
--- NOTE | 2020-02-11 18:42 | ECGEPIP ---
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
--- NOTE | 2020-02-12 07:19 | ED PDOC ---
Post-Departure Follow-Up dr avila faxed cxr for fu Uche Suárez MD Feb 12, 2020 07:19
== END 2020-02-11 14:00 | disposition home or self-care (01) ==
LOC: EDBD 09:02 → M ED 09:02
DX: E86.0 Dehydration (principal); F03.90 Unspecified dementia, unspecified severity, without behavioral disturbance, psychotic disturbance, mood disturbance, and anxiety; G20 Parkinson's disease; K21.9 Gastro-esophageal reflux disease without esophagitis; Z79.1 Long term (current) use of non-steroidal anti-inflammatories (NSAID); Z79.82 Long term (current) use of aspirin; Z79.899 Other long term (current) drug therapy; Z88.6 Allergy status to analgesic agent

== ENCOUNTER → 2020-02-11 | Outpatient (REF) | payer MEDICARE, MEDICAID ==
[~2020-02-11] MED LIST changes: +APAP325T4 PO; +ASPI81CH33 PO; -CLOZ100T2; +CLOZ100T2 PO; -CLOZ25TA3; +CLOZ25TA3 PO; +CYAN100050 PO; +MILKSUS3 PO; +MOME0.1O TOP; +NYST1POW9 TOP; +RIVA1CAP3 PO; +TAB-TAB3 PO; +TRIA1CR80 TOP; +[UNRECOGNIZED DRUG - CODE] PO
[2020-02-11 09:55] LABS: BASO % 0.5 % (0.0-1.0); EOS # 0.2 10^3/uL (0.0-0.5); HEMATOCRIT 35.1 % (36.0-47.0); HEMOGLOBIN 11.2 g/dl (12.0-15.5); LYMPH # 0.7 10^3/uL (1.5-5.0); LYMPH % 15.4 % (24.0-44.0); MEAN CORPUSCULAR HEMOGLOBIN 31.5 pg (27.0-33.0); MEAN CORPUSCULAR HGB CONC 31.9 g/dl (32.0-36.5); MEAN CORPUSCULAR VOLUME 98.6 fl (80.0-96.0); MONO # 0.3 10^3/uL (0.0-0.8); MONO % 7.6 % (0.0-5.0); NEUTROPHILS % 72.3 % (36.0-66.0); PLATELET COUNT, AUTOMATED 221 10^3/uL (150-450); RED BLOOD COUNT 3.56 10^6/uL (4.00-5.40); WHITE BLOOD COUNT 4.2 10^3/uL (4.0-10.0)
== END ==
PROVIDERS: ATTEND Psychiatry & Neurology Psychiatry
DX: Z79.899 Other long term (current) drug therapy (principal)

== ENCOUNTER 2020-02-14 09:00 | Inpatient (IN) | payer MEDICARE, MEDICAID ==
[~2020-02-14] VITALS: Ht 167.6 cm; Wt 100.0 kg
[~2020-02-14 09:00] MED LIST changes: +APAP325T4 PO; +ASPI81CH33 PO; +ASPI81TA85 PO; -ASPI81TA86 PO; +CYAN100050 PO; +MILKSUS3 PO; +MOME0.1O TOP; +NYST1POW9 TOP; +QUET1TAB7 PO; -QUET25TA3 PO; +RIVA1CAP3 PO; +TAB-TAB3 PO; +TRIA1CR80 TOP; +[UNRECOGNIZED DRUG - CODE] PO
[2020-02-14 09:52] LABS: BASO % 0.4 % (0.0-1.0); EOS # 0.2 10^3/uL (0.0-0.5); EOS % 3.1 % (0.0-3.0); HEMATOCRIT 33.4 % (36.0-47.0); HEMOGLOBIN 10.7 g/dl (12.0-15.5); LYMPH # 0.7 10^3/uL (1.5-5.0); LYMPH % 14.5 % (24.0-44.0); MEAN CORPUSCULAR HEMOGLOBIN 31.8 pg (27.0-33.0); MEAN CORPUSCULAR VOLUME 99.1 fl (80.0-96.0); MONO # 0.4 10^3/uL (0.0-0.8); MONO % 8.1 % (0.0-5.0); NEUTROPHILS # 3.6 10^3/uL (1.5-8.5); NEUTROPHILS % 73.9 % (36.0-66.0); PLATELET COUNT, AUTOMATED 204 10^3/uL (150-450); RED BLOOD COUNT 3.37 10^6/uL (4.00-5.40); WHITE BLOOD COUNT 4.8 10^3/uL (4.0-10.0)
--- NOTE | 2020-02-14 10:23 | REP ---
CHEST, PORTABLE: AP portable view of the chest is performed and compared to prior study of 02/11/2020. There is again moderate elevation of the right hemidiaphragm, unchanged. Linear atelectatic changes are seen in the lung bases. No consolidating infiltrate is seen. The heart is not significantly enlarged. The mediastinal silhouette is unchanged. IMPRESSION: Stable bibasilar atelectatic changes. Electronically Signed by Fran Castillo MD 02/17/2020 09:41 P
--- NOTE | 2020-02-14 12:06 | HPEPDOC ---
[facility] Medical History & Physical Date of Admission Feb 14, 2020 Date of Service: Feb 14, 2020 Attending Physician: Nora Hopper MD History and Physical CHIEF COMPLAINT: lightheadedness HISTORY OF PRESENT ILLNESS: Patient is a 69-year-old female with past medical history of Parkinson's disease, GERD, depression who presented to [facility] emergency room after being brought over from [facility] for having low blood pressure. According to notes the patient wasn't feeling well so her blood pressure was checked and noted to be "low". EMS was called for initial blood pressure 70/50. She was given 300 mL of normal saline bolus and that came up to 113 systolic. The patient was still complaining of increased lightheadedness and dizziness and was taken to the emergency room for further evaluation. The patient has had increased dizziness, lightheadedness over the past several weeks intermittent. She had a fall 2 weeks ago which she said was after feeling these same symptoms. She has not had recent medication changes but does admit to not drinking enough water during the day. In the ER, VS showed BP ranged from 87-118/63-86. Patient had + orthostatic VS. CXR showed stable changes. Lactic acid was slightly elevated at 2.16. Potassium was low at 3.4. H/H 10.7/33. CXR showed stable bibasilar atelectatic changes. She was lethargic on arrival but improved after IVFs. Patient was admitted for orthostatic hypotension, weakness and dehydration. PAST MEDICAL HISTORY: 1. Parkinson's disease 2. Depression 3. anxiety 4. Vitamin B12 deficiency 5. GERD PAST SURGICAL HISTORY: 1. Back surgery 2. Hip surgery, left 3. knee surgery SOCIAL HISTORY: Denies smoking, alcohol or drug use. Lives at [facility]. DNR/DNI with limited medical interventions. FAMILY HISTORY: Patient was unable to recall family history due to dementia. ALLERGIES: Please see below. HOME MEDICATIONS: Please see below. PHYSICAL EXAMINATION: CONSTITUTIONAL: No acute distress, resting in bed, AAO x 3 EYES: PERRLA, EOM intact HENT, MOUTH: Normocephalic, atraumatic, dry mucous membranes NECK: SUPPLE, no JVD, no lymphadenopathy, no carotid bruit CV: Regular rate and rhythm, S1S2 normal, no murmurs/rubs/gallops RESPIRATORY: Clear to auscultation bilaterally, no rales/rhonchi/wheezes GI: BS positive in 4 quadrants, soft, nontender, nondistended, no rebound or guarding, no organomegaly : Deferred MUSCULOSKELETAL: Normal ROM. No cyanosis, clubbing, swelling, joint deformity, extremity edema INTEGUMENTARY: Intact, no rashes, no lesions, no erythema NEUROLOGIC: Cranial Nerves II-XII are intact, no focal deficits PSYCHIATRIC: Mood and affect are normal LABORATORY DATA: Please see below IMAGING: CXR: stable bibasilar atelectatic changes. ASSESSMENT: 69 y/o F admitted for orthostatic hypotension, dehydration and weakness. PLAN: 1. Orthostatic hypotension likely 2/2 to dehydration. C/w IVFs, BP improving. F/u repeat VS, PT/OT. Encourage PO intake, consider nutrition consult. F/u AM labs and monitor on tele. 2. Dehydration likely 2/2 to decreased PO intake. C/w IVFs, monitor electrolytes. 3. Weakness likely 2/2 to problem #1 and #2. C/w treatment above, PT/OT. 4. Lactic acidosis likely 2/2 to dehydration. F/u repeat, c/w IVFs. 5. Hypokalemia. S/p 30 mEq supplementation. F/u AM labs. 6. Parkinson's disease. Has been stable. No recent medication changes. C/w home meds. 7. Depression/anxiety. STable. C/w home meds. 8. GERD. C/w PPI. 9. DVT px. Enoxaparin SC daily. DISPOSITION: Plan is discharge back to [facility] when medically improved. Vital Signs Vital Signs Date Time Temp Pulse Resp B/P (MAP) Pulse Ox O2 Delivery O2 Flow Rate FiO2 02/14/20 11:15 90 18 02/14/20 11:00 155/86 (109) 95 02/14/20 09:10 96.3 Room Air Laboratory Data Labs 24H Laboratory Tests 2 02/14/20 09:08: Immature Granulocyte % (Auto) 0.0, Neutrophils (%) (Auto) 73.9H, Lymphocytes (%) (Auto) 14.5L, Monocytes (%) (Auto) 8.1H, Eosinophils (%) (Auto) 3.1H, Basophils (%) (Auto) 0.4, Neutrophils # (Auto) 3.6, Lymphocytes # (Auto) 0.7L, Monocytes # (Auto) 0.4, Eosinophils # (Auto) 0.2, Basophils # (Auto) 0.0, Nucleated Red Blood Cells % (auto) 0.0 02/14/20 09:25: Urine Color YELLOW, Urine Appearance CLEAR, Urine pH 5.0, Urine Specific Lee 1.024, Urine Protein NEGATIVE, Urine Glucose (UA) NEGATIVE, Urine Ketones TRACEH, Urine Blood NEGATIVE, Urine Nitrite NEGATIVE, Urine Bilirubin NEGATIVE, Urine Urobilinogen 2.0H, Urine Leukocyte Esterase NEGATIVE, Urine WBC (Auto) 0, Urine RBC (Auto) 4H, Urine Hyaline Casts (Auto) 0, Urine Bacteria (Auto) NEGATIVE, Urine Squamous Epithelial Cells 1, Urine Mucus (Auto) SMALL, Urine Sperm (Auto) 02/14/20 09:30: Bedside Glucose (Misc Panel) 100 02/14/20 09:34: POC Glucose (Misc Panel) 101, POC Sodium (Misc Panel) 145, POC Potassium (Misc Panel) 3.4L, POC Chloride (Misc Panel) 106, POC Total CO2 (Misc Panel) 27.0, POC Blood Urea Nitrogen (Misc Panel 19, POC Ionized Calcium (Misc Panel) 4.8, POC Cr eatinine (Misc Panel) 1.1, POC Hematocrit (Misc Panel) 32.0L 02/14/20 09:48: POC Lactate (Misc Panel) 2.16*H 02/14/20 09:53: POC Troponin I (Misc) 0.01 CBC/BMP Laboratory Tests 02/14/20 09:08 Microbiology Microbiology 02/14/20 Blood Culture, Received Pending 02/14/20 Blood Culture, Received Pending Home Medications Scheduled Acetaminophen (Acetaminophen) 325 Mg Tablet, 650 MG PO BID Aspirin (Aspirin) 81 Mg Tab.chew, 81 MG PO DAILY Carbidopa/Levodopa (Carbidopa-Levodopa 25-100 Tab) 1 Tab Tab, 2 TAB PO 5XD TAKES AT 0600, 1000, 1400, 1800, 2200 Carboxymethylcellulos/Glycerin (Refresh Optive Eye Drops) 1 Puneet Puneet, 1 DROP OU QID Clozapine (Clozapine) 100 Mg Tab, 100 MG PO QHS 125MG TOTAL QHS Clozapine (Clozapine) 25 Mg Tab, 25 MG PO QHS 125MG TOTAL QHS Cyanocobalamin (Vitamin B-12) (Vitamin B-12) 1,000 Mcg Tablet, 1,000 MCG PO DAILY Cyclosporine (Restasis) 0.05 % Emu, 1 DROP OU BID Multivitamin (Tab-A-Joaquín) 1 Each Tablet, 1 TAB PO DAILY Omeprazole (Omeprazole) 40 Mg Cap, 40 MG PO DAILY Rivastigmine Tartrate (Rivastigmine) 3 Mg Capsule, 3 MG PO BID Triamcinolone Acet (Triamcinolone Acetonide 0.1% Crm) 80 Gm Cream..g., 1 DOSE TOP BID APPLY TO RIGHT LOWER EXTREMITY - PATIENT KEEPS AT BEDSIDE Venlafaxine HCl (Effexor Xr) 75 Mg Cap, 75 MG PO DAILY Scheduled PRN Acetaminophen (Acetaminophen) 325 Mg Tablet, 650 MG PO Q4H PRN for PAIN Docusate Sodium (Colace) 100 Mg Cap, 100 MG PO DAILY PRN for CONSTIPATION Loperamide HCl (Anti-Diarrheal) 2 Mg Capsule, 2 MG PO PRN PRN for DIARRHEA Magnesium Hydroxide (Milk of Magnesia) 400 Mg/5 Ml Oral.susp, 10 ML PO DAILY PRN for CONSTIPATION Mometasone Furoate (Mometasone Furoate) 15 Gm Oint...g., 1 DOSE TOP BID PRN for STASIS DERM APPLY TO RIGHT LOWER LEG Nystatin (Nystatin Powder) 15 Gm Powder, 1 DOSE TOP BID PRN for RASH/ITCHING APPLY TO RIGHT KNEE Allergies Coded Allergies: tramadol (Verified Adverse Reaction, Intermediate, hallucinations, 02/11/20) A-FIB/CHADSVASC A-FIB History Current/History of A-Fib/PAF?: No Current PO Anticoag Therapy: No Age/Risk Factor Scoring CHADSVASC: CHADSVASC Response (Comments) Value Age Risk Factor Age 65-74 years old 1 Gender Risk Factor Female 1 Hx of CHF No 0 Hx of HTN No 0 Hx of Stroke/TIA/or VTE No 0 Hx of Diabetes No 0 Hx of Vascular Disease No 0 Total 2 Treatment Treatment ordered: Other Other anticoagulant ordered: enoxaparin Nora Hopper MD Feb 14, 2020 12:06
[2020-02-14] MEDS ORDERED: ACETAMINOPHEN TAB 650MG DOSE (2X325MG) PO PRN (12:15)
[2020-02-14] MEDS ORDERED: NYSTATIN 100,000 UNITS/GM TOPICAL PWD 15 GM TOP PRN (12:15)
[2020-02-14] MEDS ORDERED: DOCUSATE SODIUM 100 MG CAP PO PRN (12:15)
[2020-02-14] MEDS ORDERED: MOM 30ML SUSPENSION UDC PO PRN (12:15)
[2020-02-14] MEDS ORDERED: POTASSIUM CHLORIDE 10 MEQ SR TABLET PO ONE (12:45)
[2020-02-14] MEDS: NS 1,000 ML IV SCH ×2 (12:59→22:22)
[2020-02-14] MEDS: ASPIRIN 81 MG CHEW TABLET PO SCH (14:24)
[2020-02-14] MEDS: VENLAFAXINE **XR** 75MG CAPSULE PO SCH (14:24)
[2020-02-14] MEDS: SINEMET 25-100 MG TAB PO SCH ×3 (14:25→22:06)
[2020-02-14] MEDS: CYANOCOBALAMIN 500 MCG TAB PO SCH (14:25)
[2020-02-14] MEDS: OMEPRAZOLE 20 MG CAP PO SCH (14:25)
[2020-02-14] MEDS: MULTIVITAMINS/MINERALS THERAP 1 TAB PO SCH (14:28)
[2020-02-14] MEDS: POLYVINYL ALCOHOL OPHTH SOLN 15 ML(LIQUITEARS) OU SCH ×2 (17:34→20:14)
[2020-02-14 18:10] LABS: INR 1.02; PROTHROMBIN TIME 13.1 SECONDS (11.8-14.0)
[2020-02-14 18:11] LABS: PARTIAL THROMBOPLASTIN TIME 29.3 SECONDS (25.0-38.4)
[2020-02-14] MEDS: ENOXAPARIN 30MG/0.3ML SYRINGE (J1650 PER 10MG) SC SCH (20:13)
[2020-02-14] MEDS: ACETAMINOPHEN TAB 650MG DOSE (2X325MG) PO SCH (20:14)
[2020-02-14] MEDS: TRIAMCINOLONE ACET 0.1% CREAM 15 GM TOP SCH (20:14)
--- NOTE | 2020-02-14 21:07 | ECGEPIP ---
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
[2020-02-14 22:00] VITALS: BP 138/88
[2020-02-14] MEDS: RIVASTIGMINE 3 MG PO SCH (22:06)
[2020-02-15 06:00] VITALS: BP 143/62
[2020-02-15 06:39] LABS: HEMATOCRIT 32.6 % (36.0-47.0); HEMOGLOBIN 10.4 g/dl (12.0-15.5); MEAN CORPUSCULAR HEMOGLOBIN 31.5 pg (27.0-33.0); MEAN CORPUSCULAR HGB CONC 31.9 g/dl (32.0-36.5); MEAN CORPUSCULAR VOLUME 98.8 fl (80.0-96.0); PLATELET COUNT, AUTOMATED 201 10^3/uL (150-450); WHITE BLOOD COUNT 5.3 10^3/uL (4.0-10.0)
[2020-02-15] MEDS: SINEMET 25-100 MG TAB PO SCH ×5 (06:44→20:35)
[2020-02-15 07:01] VITALS: BP_SYST 115; BP_SYST 139; BP_SYST 140; BP_DIAS 72; BP_DIAS 91; BP_DIAS 98
[2020-02-15 07:17] LABS: ALBUMIN 3.3 GM/DL (3.2-5.2); ALT/SGPT 13 U/L (12-78); BILIRUBIN,TOTAL 0.4 MG/DL (0.2-1.0); BLOOD UREA NITROGEN 17 MG/DL (7-18); CALCIUM LEVEL 8.4 MG/DL (8.8-10.2); CARBON DIOXIDE LEVEL 28 MEQ/L (21-32); CHLORIDE LEVEL 112 MEQ/L (98-107); GLOMERULAR FILTRATION RATE > 60.0 (>39); GLUCOSE, FASTING 84 MG/DL (70-100); POTASSIUM SERUM 3.9 MEQ/L (3.5-5.1); SODIUM LEVEL 145 MEQ/L (136-145); TOTAL PROTEIN 6.4 GM/DL (6.4-8.2)
[2020-02-15] MEDS: NS 1,000 ML IV SCH (08:31)
[2020-02-15] MEDS: ACETAMINOPHEN TAB 650MG DOSE (2X325MG) PO SCH ×2 (08:32→20:34)
[2020-02-15] MEDS: MULTIVITAMINS/MINERALS THERAP 1 TAB PO SCH (08:32)
[2020-02-15] MEDS: RIVASTIGMINE 3 MG PO SCH ×2 (08:33→20:34)
[2020-02-15] MEDS: VENLAFAXINE **XR** 75MG CAPSULE PO SCH (08:33)
[2020-02-15] MEDS: POLYVINYL ALCOHOL OPHTH SOLN 15 ML(LIQUITEARS) OU SCH ×4 (08:33→20:35)
[2020-02-15] MEDS: ASPIRIN 81 MG CHEW TABLET PO SCH (08:33)
[2020-02-15] MEDS: CYANOCOBALAMIN 500 MCG TAB PO SCH (08:33)
[2020-02-15] MEDS: OMEPRAZOLE 20 MG CAP PO SCH (08:33)
[2020-02-15] MEDS: TRIAMCINOLONE ACET 0.1% CREAM 15 GM TOP SCH ×2 (08:34→20:35)
[2020-02-15 14:00] VITALS: BP 127/81
--- NOTE | 2020-02-15 18:04 | IPNPDOC ---
Date Seen The patient was seen on 02/15/20. Progress Note SUBJECTIVE: The patient had repeat orthostatics done this morning. Blood pressure dropped from 140 systolic to 115 mmHg. She was symptomatic with lightheadedness and had to be sat down. Carbidopa/levodopa dose was changed this a.m. With history of falls her orthostatic hypotension really should be addressed this hospital stay before sending back to the correction. She denies chest pain, shortness of breath, nausea, vomiting. OBJECTIVE: VITAL SIGNS: Please see below PHYSICAL EXAMINATION: CONSTITUTIONAL: No acute distress, resting in bed, AAO x 3 EYES: PERRLA, EOM intact HENT, MOUTH: Normocephalic, atraumatic, dry mucous membranes NECK: SUPPLE, no JVD, no lymphadenopathy, no carotid bruit CV: Regular rate and rhythm, S1S2 normal, no murmurs/rubs/gallops RESPIRATORY: Clear to auscultation bilaterally, no rales/rhonchi/wheezes GI: BS positive in 4 quadrants, soft, nontender, nondistended, no rebound or guarding, no organomegaly : Deferred MUSCULOSKELETAL: Normal ROM. No cyanosis, clubbing, swelling, joint deformity, extremity edema INTEGUMENTARY: Intact, no rashes, no lesions, no erythema NEUROLOGIC: Cranial Nerves II-XII are intact, no focal deficits PSYCHIATRIC: Mood and affect are normal LABORATORY DATA: Please see below IMAGING: No new imaging ASSESSMENT: 69 y/o F admitted for orthostatic hypotension. PLAN: 1. Orthostatic hypotension likely 2/2 to medications. The patient told me she recently had carbidopa/levodopa dose adjusted within the last 1 month. An adverse effect of this medication is orthostatic hypotension. We've decreased the dose from 2 to 1 tab 5 times a day. C/w daily orthostatic VS, PT/OT. Encourage PO intake, consider nutrition consult. F/u AM labs and monitor on tele. 2. Weakness likely 2/2 to problem #1 and #2. ? underlying physical deconditioning at baseline. C/w treatment above, PT/OT. 3. Parkinson's disease. Has been stable. C/w decreased dose of carbidopa/levodopa. 4. Depression/anxiety. Stable. C/w home meds. 5. GERD. C/w PPI. 6. DVT px. Enoxaparin SC daily. DISPOSITION: Plan is discharge back to [facility] when medically improved. VS, I&O, 24H, Fishbone Vital Signs/I&O Vital Signs Date Time Temp Pulse Resp B/P (MAP) Pulse Ox O2 Delivery O2 Flow Rate FiO2 02/15/20 14:00 97.8 78 17 127/81 (96) 95 Room Air I&O- Last 24 Hours up to 6 AM 02/15/20 06:00 Intake Total 2100 ml Output Total 1100 ml Balance 1000 ml Laboratory Data 24H LABS Laboratory Tests 2 02/15/20 06:29: Nucleated Red Blood Cells % (auto) 0.0, Anion Gap 5L, Glomerular Filtration Rate > 60.0, Calcium Level 8.4L, Total Bilirubin 0.4, Aspartate Amino Transf (A ST/SGOT) 17, Alanine Aminotransferase (ALT/SGPT) 13, Alkaline Phosphatase 79, Total Protein 6.4, Albumin 3.3, Albumin/Globulin Ratio 1.1L CBC/BMP Laboratory Tests 02/15/20 06:29 Microbiology Microbiology 02/14/20 Blood Culture - Preliminary, Resulted No growth after 24 hours . All specim... 02/14/20 Blood Culture - Preliminary, Resulted No growth after 24 hours . All specim... Current Medications Current Medications Medications (Trade) Dose Ordered Sig/Marc Route PRN Reason Start Time Stop Time Status Last Admin Dose Admin Acetaminophen (Tylenol Tab) 650 mg BID PO 02/14/20 21:00 02/15/20 08:32 Acetaminophen (Tylenol Tab) 650 mg Q12HP PRN PO PAIN 02/14/20 12:15 Artificial Tears (Akwa Tears) 1 drop QID OU 02/14/20 17:00 02/15/20 16:51 Aspirin (Aspirin Chewable) 81 mg DAILY PO 02/14/20 09:00 02/15/20 08:33 Carbidopa/Levodopa (Sinemet 25/100) 1 tab 0600,1000,1400 PO 02/15/20 10:00 02/15/20 13:46 Carbidopa/Levodopa (Sinemet 25/100) 1 tab 1800,2200 PO 02/15/20 18:00 Carbidopa/Levodopa (Sinemet 25/100) 2 tab 0600,1000,1400 PO 02/14/20 14:00 02/15/20 08:13 DC 02/15/20 06:44 Carbidopa/Levodopa (Sinemet 25/100) 2 tab 1800,2200 PO 02/14/20 18:00 02/15/20 08:13 DC 02/14/20 22:06 Cyanocobalamin (Vitamin B12) 1,000 mcg DAILY PO 02/14/20 09:00 02/15/20 08:33 Docusate Sodium (Colace) 100 mg DAILY PRN PO CONSTIPATION 02/14/20 12:15 Enoxaparin Sodium (Lovenox) 30 mg QHS SC 02/14/20 21:00 02/14/20 20:13 Home Med (Med Rec Complete!) ASDIRECTED XX 02/14/20 09:30 02/14/20 09:30 DC Magnesium Hydroxide (Milk Of Magnesia) 30 ml DAILY PRN PO CONSTIPATION 02/14/20 12:15 Miscellaneous (Unresolved Patient Own Med Order) SEE LABEL COMMENTS DAILY XX 02/14/20 09:00 02/14/20 20:47 DC Multivitamins (Theragram-M) 1 tab DAILY PO 02/14/20 09:00 02/15/20 08:32 Nystatin (Mycostatin Powder, Nystop) 1 dose BID PRN TOP RASH/ITCHING 02/14/20 12:15 Omeprazole (PriLOSEC) 40 mg DAILY PO 02/14/20 09:00 02/15/20 08:33 Patient Own Medication (Patient'S Own Med) 1 capsule BID PO 02/14/20 21:00 02/15/20 08:33 Sodium Chloride 1,000 ml @ 75 mls/hr [id number] IV 02/14/20 12:15 02/15/20 08:31 Triamcinolone Acetonide (Kenalog 0.1% Cream) 1 dose BID TOP 02/14/20 21:00 02/15/20 08:34 Venlafaxine HCl (Effexor Xr) 75 mg DAILY PO 02/14/20 09:00 02/15/20 08:33 Allergies Coded Allergies: tramadol (Verified Adverse Reaction, Intermediate, hallucinations, 02/11/20) Nora Hopper MD Feb 15, 2020 18:04
[2020-02-15] MEDS: ENOXAPARIN 30MG/0.3ML SYRINGE (J1650 PER 10MG) SC SCH (20:34)
[2020-02-15 22:00] VITALS: BP 127/80
[2020-02-16] MEDS: SINEMET 25-100 MG TAB PO SCH ×5 (05:48→21:57)
[2020-02-16 06:00] VITALS: BP 149/81
[2020-02-16 06:43] LABS: HEMATOCRIT 31.8 % (36.0-47.0); HEMOGLOBIN 10.5 g/dl (12.0-15.5); MEAN CORPUSCULAR HEMOGLOBIN 32.3 pg (27.0-33.0); MEAN CORPUSCULAR VOLUME 97.8 fl (80.0-96.0); PLATELET COUNT, AUTOMATED 201 10^3/uL (150-450); RED BLOOD COUNT 3.25 10^6/uL (4.00-5.40); WHITE BLOOD COUNT 6.1 10^3/uL (4.0-10.0)
[2020-02-16 07:21] LABS: ALBUMIN 3.3 GM/DL (3.2-5.2); ALT/SGPT 14 U/L (12-78); BILIRUBIN,TOTAL 0.6 MG/DL (0.2-1.0); BLOOD UREA NITROGEN 15 MG/DL (7-18); CALCIUM LEVEL 8.6 MG/DL (8.8-10.2); CARBON DIOXIDE LEVEL 27 MEQ/L (21-32); CHLORIDE LEVEL 112 MEQ/L (98-107); CREATININE FOR GFR 0.93 MG/DL (0.55-1.30); GLOMERULAR FILTRATION RATE > 60.0 (>39); GLUCOSE, FASTING 80 MG/DL (70-100); POTASSIUM SERUM 3.9 MEQ/L (3.5-5.1); SODIUM LEVEL 146 MEQ/L (136-145); TOTAL PROTEIN 6.3 GM/DL (6.4-8.2)
[2020-02-16 08:05] VITALS: BP 136/62
[2020-02-16 08:08] VITALS: BP 173/127
[2020-02-16] MEDS: RIVASTIGMINE 3 MG PO SCH ×2 (08:22→20:36)
[2020-02-16] MEDS: MULTIVITAMINS/MINERALS THERAP 1 TAB PO SCH (08:23)
[2020-02-16] MEDS: ACETAMINOPHEN TAB 650MG DOSE (2X325MG) PO SCH ×2 (08:23→20:35)
[2020-02-16] MEDS: VENLAFAXINE **XR** 75MG CAPSULE PO SCH (08:23)
[2020-02-16] MEDS: CYANOCOBALAMIN 500 MCG TAB PO SCH (08:23)
[2020-02-16] MEDS: ASPIRIN 81 MG CHEW TABLET PO SCH (08:23)
[2020-02-16] MEDS: OMEPRAZOLE 20 MG CAP PO SCH (08:24)
[2020-02-16] MEDS: POLYVINYL ALCOHOL OPHTH SOLN 15 ML(LIQUITEARS) OU SCH ×4 (08:24→20:36)
[2020-02-16] MEDS: TRIAMCINOLONE ACET 0.1% CREAM 15 GM TOP SCH ×2 (08:24→20:36)
[2020-02-16 10:00] VITALS: BP_SYST 136; BP_SYST 140; BP_SYST 173; BP_DIAS 120; BP_DIAS 62; BP_DIAS 63
[2020-02-16 14:00] VITALS: BP 148/69
--- NOTE | 2020-02-16 16:33 | IPNPDOC ---
Date Seen The patient was seen on 02/16/20. Progress Note SUBJECTIVE: BP changed from 140 mmHg to 173 mmHg from sitting to standing on orthostatic VS today. Symptomatic. It hasn't even been 24 hours since changing carbidopa/levodopa dose. Will check again tomorrow. She denies chest pain, shortness of breath, nausea, vomiting. OBJECTIVE: VITAL SIGNS: Please see below PHYSICAL EXAMINATION: CONSTITUTIONAL: No acute distress, resting in bed, AAO x 3 EYES: PERRLA, EOM intact HENT, MOUTH: Normocephalic, atraumatic, dry mucous membranes NECK: SUPPLE, no JVD, no lymphadenopathy, no carotid bruit CV: Regular rate and rhythm, S1S2 normal, no murmurs/rubs/gallops RESPIRATORY: Clear to auscultation bilaterally, no rales/rhonchi/wheezes GI: BS positive in 4 quadrants, soft, nontender, nondistended, no rebound or guarding, no organomegaly : Deferred MUSCULOSKELETAL: Normal ROM. No cyanosis, clubbing, swelling, joint deformity, extremity edema INTEGUMENTARY: Intact, no rashes, no lesions, no erythema NEUROLOGIC: Cranial Nerves II-XII are intact, no focal deficits PSYCHIATRIC: Mood and affect are normal LABORATORY DATA: Please see below IMAGING: No new imaging ASSESSMENT: 69 y/o F admitted for orthostatic hypotension. PLAN: 1. Orthostatic hypotension likely 2/2 to medications. + again today on exam, symptomatic with dizziness, lightheadedness. C/w decreased the dose carbidopa/levodopa. C/w daily orthostatic VS, PT/OT. Encourage PO intake. F/u AM labs and monitor on tele. Daily orthostatic VS. 2. Weakness likely 2/2 to problem #1 and #2. ? underlying physical deconditioning at baseline. C/w treatment above, PT/OT. 3. Parkinson's disease. Has been stable. C/w decreased dose of carbidopa/levodopa. 4. Depression/anxiety. Stable. C/w home meds. 5. GERD. C/w PPI. 6. DVT px. Enoxaparin SC daily. DISPOSITION: Plan is discharge back to [facility] when medically improved. VS, I&O, 24H, Fishbone Vital Signs/I&O Vital Signs Date Time Temp Pulse Resp B/P (MAP) Pulse Ox O2 Delivery O2 Flow Rate FiO2 02/16/20 14:00 98.3 80 17 148/69 (95) 95 Room Air I&O- Last 24 Hours up to 6 AM 02/16/20 06:00 Intake Total 1540 ml Output Total 200 ml Balance 1340 ml Laboratory Data 24H LABS Laboratory Tests 2 02/16/20 06:26: Nucleated Red Blood Cells % (auto) 0.0, Anion Gap 7L, Glomerular Filtration Rate > 60.0, Calcium Level 8.6L, Total Bilirubin 0.6, Aspartate Amino Transf (AST/SGOT) 18, Alanine Aminotransferase (ALT/SGPT) 14, Alkaline Phosphatase 83, Total Protein 6.3L, Albumin 3.3, Albumin/Globulin Ratio 1.1L CBC/BMP Laboratory Tests 02/16/20 06:26 Microbiology Microbiology 02/14/20 Blood Culture - Preliminary, Resulted No Growth after 48 hours. All Specime... 02/14/20 Blood Culture - Preliminary, Resulted No Growth after 48 hours. All Specime... Current Medications Current Medications Medications (Trade) Dose Ordered Sig/Marc Route PRN Reason Start Time Stop Time Status Last Admin Dose Admin Acetaminophen (Tylenol Tab) 650 mg BID PO 02/14/20 21:00 02/16/20 08:23 Acetaminophen (Tylenol Tab) 650 mg Q12HP PRN PO PAIN 02/14/20 12:15 Artificial Tears (Akwa Tears) 1 drop QID OU 02/14/20 17:00 02/16/20 13:06 Aspirin (Aspirin Chewable) 81 mg DAILY PO 02/14/20 09:00 02/16/20 08:23 Carbidopa/Levodopa (Sinemet 25/100) 1 tab 0600,1000,1400 PO 02/15/20 10:00 02/16/20 13:07 Carbidopa/Levodopa (Sinemet 25/100) 1 tab 1800,2200 PO 02/15/20 18:00 02/15/20 20:35 Carbidopa/Levodopa (Sinemet 25/100) 2 tab 0600,1000,1400 PO 02/14/20 14:00 02/15/20 08:13 DC 02/15/20 06:44 Carbidopa/Levodopa (Sinemet 25/100) 2 tab 1800,2200 PO 02/14/20 18:00 02/15/20 08:13 DC 02/14/20 22:06 Cyanocobalamin (Vitamin B12) 1,000 mcg DAILY PO 02/14/20 09:00 02/16/20 08:23 Docusate Sodium (Colace) 100 mg DAILY PRN PO CONSTIPATION 02/14/20 12:15 Enoxaparin Sodium (Lovenox) 30 mg QHS SC 02/14/20 21:00 02/15/20 20:34 Home Med (Med Rec Complete!) ASDIRECTED XX 02/14/20 09:30 02/14/20 09:30 DC Magnesium Hydroxide (Milk Of Magnesia) 30 ml DAILY PRN PO CONSTIPATION 02/14/20 12:15 Miscellaneous (Unresolved Patient Own Med Order) SEE LABEL COMMENTS DAILY XX 02/14/20 09:00 02/14/20 20:47 DC Multivitamins (Theragram-M) 1 tab DAILY PO 02/14/20 09:00 02/16/20 08:23 Nystatin (Mycostatin Powder, Nystop) 1 dose BID PRN TOP RASH/ITCHING 02/14/20 12:15 Omeprazole (PriLOSEC) 40 mg DAILY PO 02/14/20 09:00 02/16/20 08:24 Patient Own Medication (Patient'S Own Med) 1 capsule BID PO 02/14/20 21:00 02/16/20 08:22 Sodium Chloride 1,000 ml @ 75 mls/hr [id number] IV 02/14/20 12:15 02/15/20 18:02 DC 02/15/20 08:31 Triamcinolone Acetonide (Kenalog 0.1% Cream) 1 dose BID TOP 02/14/20 21:00 02/16/20 08:24 Venlafaxine HCl (Effexor Xr) 75 mg DAILY PO 02/14/20 09:00 02/16/20 08:23 Allergies Coded Allergies: tramadol (Verified Adverse Reaction, Intermediate, hallucinations, 02/11/20) Nora Hopper MD Feb 16, 2020 16:33
[2020-02-16] MEDS: ENOXAPARIN 30MG/0.3ML SYRINGE (J1650 PER 10MG) SC SCH (20:35)
[2020-02-16 22:00] VITALS: BP 124/78
[2020-02-17 04:49] VITALS: BP_SYST 147; BP_SYST 150; BP_DIAS 83; BP_DIAS 84
[2020-02-17 04:51] VITALS: BP 100/80
[2020-02-17] MEDS: SINEMET 25-100 MG TAB PO SCH ×5 (05:59→20:54)
[2020-02-17 06:00] VITALS: BP 144/87
[2020-02-17 06:06] LABS: HEMATOCRIT 30.7 % (36.0-47.0); HEMOGLOBIN 9.9 g/dl (12.0-15.5); MEAN CORPUSCULAR HEMOGLOBIN 31.8 pg (27.0-33.0); MEAN CORPUSCULAR HGB CONC 32.2 g/dl (32.0-36.5); MEAN CORPUSCULAR VOLUME 98.7 fl (80.0-96.0); PLATELET COUNT, AUTOMATED 202 10^3/uL (150-450); RED BLOOD COUNT 3.11 10^6/uL (4.00-5.40); WHITE BLOOD COUNT 5.6 10^3/uL (4.0-10.0)
[2020-02-17 06:37] LABS: ALBUMIN 3.3 GM/DL (3.2-5.2); BILIRUBIN,TOTAL 0.4 MG/DL (0.2-1.0); CALCIUM LEVEL 8.6 MG/DL (8.8-10.2); CREATININE FOR GFR 0.99 MG/DL (0.55-1.30); GLOMERULAR FILTRATION RATE 58.9 (>39); POTASSIUM SERUM 3.8 MEQ/L (3.5-5.1); TOTAL PROTEIN 6.1 GM/DL (6.4-8.2)
[2020-02-17] MEDS: OMEPRAZOLE 20 MG CAP PO SCH (08:50)
[2020-02-17] MEDS: MULTIVITAMINS/MINERALS THERAP 1 TAB PO SCH (08:50)
[2020-02-17] MEDS: VENLAFAXINE **XR** 75MG CAPSULE PO SCH (08:50)
[2020-02-17] MEDS: ASPIRIN 81 MG CHEW TABLET PO SCH (08:50)
[2020-02-17] MEDS: ACETAMINOPHEN TAB 650MG DOSE (2X325MG) PO SCH ×2 (08:51→20:53)
[2020-02-17] MEDS: POLYVINYL ALCOHOL OPHTH SOLN 15 ML(LIQUITEARS) OU SCH ×4 (08:51→20:54)
[2020-02-17] MEDS: TRIAMCINOLONE ACET 0.1% CREAM 15 GM TOP SCH ×2 (08:51→20:55)
[2020-02-17] MEDS: CYANOCOBALAMIN 500 MCG TAB PO SCH (08:51)
[2020-02-17] MEDS: RIVASTIGMINE 3 MG PO SCH ×2 (09:33→20:55)
[2020-02-17 14:00] VITALS: BP 138/83
--- NOTE | 2020-02-17 16:33 | IPNPDOC ---
Date Seen The patient was seen on 02/17/20. Progress Note SUBJECTIVE: Lightheadedness today with no change in blood pressure, clozapine was restarted due to patient's behaviors changing this afternoon. According to her daughter, the patient has been monitored closely by her neurologist for hallucinations for why she is on the clozapine. Her daughter is recommending touching base with the neurologist at [facility], when attempted to call the physician was not available to speak. She has intermittent dizziness but it is very rare and denies nausea, vomiting with these episodes. Ordering CTA of the head and neck and requesting [facility] notes to review. OBJECTIVE: VITAL SIGNS: Please see below PHYSICAL EXAMINATION: CONSTITUTIONAL: No acute distress, resting in bed, AAO x 2, pleasantly confused at times EYES: PERRLA, EOM intact HENT, MOUTH: Normocephalic, atraumatic, dry mucous membranes NECK: SUPPLE, no JVD, no lymphadenopathy, no carotid bruit CV: Regular rate and rhythm, S1S2 normal, no murmurs/rubs/gallops RESPIRATORY: Clear to auscultation bilaterally, no rales/rhonchi/wheezes GI: BS positive in 4 quadrants, soft, nontender, nondistended, no rebound or guarding, no organomegaly : Deferred MUSCULOSKELETAL: Normal ROM. No cyanosis, clubbing, swelling, joint deformity, extremity edema INTEGUMENTARY: Intact, no rashes, no lesions, no erythema NEUROLOGIC: Cranial Nerves II-XII are intact, no focal deficits, no nystagmus PSYCHIATRIC: Mood and affect are normal LABORATORY DATA: Please see below IMAGING: CTA head, CTA neck pending ASSESSMENT: 69 y/o F admitted for orthostatic hypotension, dizziness. PLAN: 1. Orthostatic hypotension/dizziness likely 2/2 to medications. Rare episodes of dizziness so may want to rule out posterior circulation issue vs. inner ear d/o. In the past, according to the daughter, the patient's psychiatric and neurological medications have been hard to manage. Clozapine and carbidopa levodopa, both of which cause orthostatic hypotension, have been monitored closely by her neurologist at the [facility]. I attempted to call today; however, was unable to reach Dr. Martinez Laws ([phone]), neurology. I have requested their notes to be reviewed. She is high risk for falls sending back to assisted living with this issue. Will order CTA head and neck today. Starting back on HS clozapine, as she is starting to develop increased anger and behaviors with daughter-similar to when she was off medication in past. This med can cause orthostatic hypotension. Perhaps neurologist could suggest alternative meds without this side effect. C/w decreased the dose carbidopa/levodopa. C/w PT/OT, encourage PO intake, daily abs and monitor on tele. Daily orthostatic VS. 2. Weakness likely 2/2 to problem #1 and chronic deconditioning from Parkinson's disease. C/w treatment above, PT/OT. 3. Parkinson's disease. Has been stable. F/u neurology notes. C/w decreased dose of carbidopa/levodopa. 4. Depression/anxiety/hallucinations. Increased anger today with behaviors according to daughter who patient was calling throughout day. Restarted HS clozapine. F/u neurology notes. C/w home meds. 5. GERD. C/w PPI. 6. DVT px. Enoxaparin SC daily. DISPOSITION: Currently in patient status. Plan is undecided yet for discharge. VS, I&O, 24H, [facility] [place] Vital Signs/I&O Vital Signs Date Time Temp Pulse Resp B/P (MAP) Pulse Ox O2 Delivery O2 Flow Rate FiO2 02/17/20 14:00 97.4 86 19 138/83 (101) 94 Room Air I&O- Last 24 Hours up to 6 AM 02/17/20 05:59 Intake Total 540 ml Balance 540 ml Laboratory Data 24H LABS Laboratory Tests 2 02/17/20 05:07: Nucleated Red Blood Cells % (auto) 0.0, Anion Gap 6L, Glomerular Filtration Rate 58.9, Calcium Level 8.6L, Total Bilirubin 0.4, Aspartate Amino Transf (AST/SGOT) 15, Alanine Aminotransferase (ALT/SGPT) 14, Alkaline Phosphatase 77, Total Protein 6.1L, Albumin 3.3, Albumin/Globulin Ratio 1.2 CBC/BMP Laboratory Tests 02/17/20 05:07 Microbiology Microbiology 02/14/20 Blood Culture - Preliminary, Resulted No Growth after 72 hours. All specime... 02/14/20 Blood Culture - Preliminary, Resulted No Growth after 72 hours. All specime... Current Medications Current Medications Medications (Trade) Dose Ordered Sig/Marc Route PRN Reason Start Time Stop Time Status Last Admin Dose Admin Acetaminophen (Tylenol Tab) 650 mg BID PO 02/14/20 21:00 02/17/20 08:51 Acetaminophen (Tylenol Tab) 650 mg Q12HP PRN PO PAIN 02/14/20 12:15 Artificial Tears (Akwa Tears) 1 drop QID OU 02/14/20 17:00 02/17/20 17:08 Aspirin (Aspirin Chewable) 81 mg DAILY PO 02/14/20 09:00 02/17/20 08:50 Carbidopa/Levodopa (Sinemet 25/100) 1 tab 0600,1000,1400 PO 02/15/20 10:00 02/17/20 14:31 Carbidopa/Levodopa (Sinemet 25/100) 1 tab 1800,2200 PO 02/15/20 18:00 02/17/20 17:06 Carbidopa/Levodopa (Sinemet 25/100) 2 tab 0600,1000,1400 PO 02/14/20 14:00 02/15/20 08:13 DC 02/15/20 06:44 Carbidopa/Levodopa (Sinemet 25/100) 2 tab 1800,2200 PO 02/14/20 18:00 02/15/20 08:13 DC 02/14/20 22:06 Clozapine (Clozaril) 25 mg QHS PO 02/17/20 21:00 UNV Clozapine (Clozaril) 100 mg QHS PO 02/17/20 21:00 UNV Cyanocobalamin (Vitamin B12) 1,000 mcg DAILY PO 02/14/20 09:00 02/17/20 08:51 Docusate Sodium (Colace) 100 mg DAILY PRN PO CONSTIPATION 02/14/20 12:15 Enoxaparin Sodium (Lovenox) 30 mg QHS SC 02/14/20 21:00 02/16/20 20:35 Home Med (Med Rec Complete!) ASDIRECTED XX 02/14/20 09:30 02/14/20 09:30 DC Magnesium Hydroxide (Milk Of Magnesia) 30 ml DAILY PRN PO CONSTIPATION 02/14/20 12:15 Miscellaneous (Unresolved Patient Own Med Order) SEE LABEL COMMENTS DAILY XX 02/14/20 09:00 02/14/20 20:47 DC Multivitamins (Theragram-M) 1 tab DAILY PO 02/14/20 09:00 02/17/20 08:50 Nystatin (Mycostatin Powder, Nystop) 1 dose BID PRN TOP RASH/ITCHING 02/14/20 12:15 Omeprazole (PriLOSEC) 40 mg DAILY PO 02/14/20 09:00 02/17/20 08:50 Patient Own Medication (Patient'S Own Med) 1 capsule BID PO 02/14/20 21:00 02/17/20 09:33 Sodium Chloride 1,000 ml @ 75 mls/hr [id number] IV 02/14/20 12:15 02/15/20 18:02 DC 02/15/20 08:31 Triamcinolone Acetonide (Kenalog 0.1% Cream) 1 dose BID TOP 02/14/20 21:00 02/17/20 08:51 Venlafaxine HCl (Effexor Xr) 75 mg DAILY PO 02/14/20 09:00 02/17/20 08:50 Allergies Coded Allergies: tramadol (Verified Adverse Reaction, Intermediate, hallucinations, 02/11/20) Nora Hopper MD Feb 17, 2020 16:33
[2020-02-17] MEDS ORDERED: ISOVUE-370 76% 100ML VIAL As Ordered ONE (17:30)
[2020-02-17 17:50] LABS: BASO % 0.5 % (0.0-1.0); EOS # 0.1 10^3/uL (0.0-0.5); EOS % 2.3 % (0.0-3.0); HEMATOCRIT 33.1 % (36.0-47.0); HEMOGLOBIN 10.6 g/dl (12.0-15.5); LYMPH # 0.8 10^3/uL (1.5-5.0); LYMPH % 13.4 % (24.0-44.0); MEAN CORPUSCULAR HEMOGLOBIN 31.9 pg (27.0-33.0); MEAN CORPUSCULAR VOLUME 99.7 fl (80.0-96.0); MONO # 0.5 10^3/uL (0.0-0.8); NEUTROPHILS # 4.2 10^3/uL (1.5-8.5); NEUTROPHILS % 74.4 % (36.0-66.0); PLATELET COUNT, AUTOMATED 203 10^3/uL (150-450); RED BLOOD COUNT 3.32 10^6/uL (4.00-5.40); WHITE BLOOD COUNT 5.6 10^3/uL (4.0-10.0)
--- NOTE | 2020-02-17 18:29 | REPVR ---
PROCEDURE INFORMATION: Exam: CT Angiography Head With Contrast Exam date and time: 02/17/2020 5:55 PM Age: 69 years old Clinical indication: Dizziness and giddiness; Additional info: Dizziness, lightheadedness TECHNIQUE: Imaging protocol: Computed tomography angiography of the head with intravenous contrast. 3D rendering: MIP and/or 3D reconstructed images were created by the technologist. Radiation optimization: All CT scans at this facility use at least one of these dose optimization techniques: automated exposure control; mA and/or kV adjustment per patient size (includes targeted exams where dose is matched to clinical indication); or iterative reconstruction. Contrast material: ISOVUE 370; Contrast volume: 100 ml; Contrast route: IV; COMPARISON: CT Head without contrast 02/11/2020 9:35 AM FINDINGS: Ventricles, cisterns and sulci are symmetric and appropriate for age. No intracranial mass or focal mass effect. No intracranial hemorrhage, midline shift or acute territorial infarct. Anterior circulation: Normal contrast opacification and luminal caliber in the petrous, cavernous and supraclinoid internal carotid arteries. Normal appearance of the anterior cerebral artery branches and middle cerebral artery branches through the MCA trifurcations. No occlusion, high-grade focal stenosis or dissection. No aneurysm. Posterior circulation: Normal distal vertebral arteries, with patent normal caliber basilar artery, and normal superior cerebellar and posterior cerebral arteries. No occlusion, high-grade stenosis or aneurysm. Dural sinuses enhance normally. Bony structures show no acute fracture or destructive process. IMPRESSION: Unremarkable CT Angiogram of the head and soboba of [place]. Electronically signed by: Rashaad Osorio On 02/17/2020 18:28:43 PM
--- NOTE | 2020-02-17 18:31 | REPVR ---
PROCEDURE INFORMATION: Exam: CT Angiography Neck With Contrast Exam date and time: 02/17/2020 5:55 PM Age: 69 years old Clinical indication: Dizziness and giddiness; Additional info: Dizziness, lightheadedness TECHNIQUE: Imaging protocol: Computed tomography angiography of the neck with intravenous contrast. 3D rendering: MIP and/or 3D reconstructed images were created by the technologist. Radiation optimization: All CT scans at this facility use at least one of these dose optimization techniques: automated exposure control; mA and/or kV adjustment per patient size (includes targeted exams where dose is matched to clinical indication); or iterative reconstruction. Contrast material: ISOVUE 370; Contrast volume: 100 ml; Contrast route: IV; COMPARISON: No relevant prior studies available. FINDINGS: Right common carotid, cervical ICA and proximal ECA demonstrate contrast opacification with no occlusion, flow limiting stenosis, or intimal flap to suggest dissection. Mild carotid bulb calcified plaque with certainly milder than 50% luminal caliber narrowing Left common carotid, cervical ICA and proximal ECA demonstrate contrast opacification, with no occlusion, flow limiting stenosis, or intimal flap to suggest dissection. Minimal left carotid bulb plaque with no significant flow limitation Vertebral arteries demonstrate normal course to the level of the skull base and show no occlusion, flow limiting stenosis or dissection. No flow limiting stenosis or anomaly of the great vessel origins. No concerning asymmetric neck soft tissue abnormality. Probable, but incompletely imaged left thyroid nodule, roughly 6 mm, axial image 33. IMPRESSION: Minimal bilateral carotid bulb calcified plaque with certainly milder than or 50% luminal caliber narrowing. No hemodynamically significant arterial lesion of the neck. REFERENCES: NASCET CRITERIA. The degree of internal carotid artery stenosis is based on NASCET criteria. Normal is no stenosis. Mild is less than 50% stenosis. Moderate is 50-69% stenosis. Severe is 70% to 99% stenosis. Total occlusion is no detectable patent lumen. Electronically signed by: Rashaad Osorio On 02/17/2020 18:30:49 PM
[2020-02-17] MEDS: cloZAPine 25 MG TAB (S0136) PO SCH (20:53)
[2020-02-17] MEDS: cloZAPine 100 MG TAB (S0136) PO SCH (20:53)
[2020-02-17] MEDS: ENOXAPARIN 30MG/0.3ML SYRINGE (J1650 PER 10MG) SC SCH (20:54)
[2020-02-17 22:00] VITALS: BP 125/77
[2020-02-18 06:00] VITALS: BP 124/76
[2020-02-18] MEDS: SINEMET 25-100 MG TAB PO SCH ×5 (06:13→21:34)
[2020-02-18 06:24] LABS: HEMATOCRIT 27.8 % (36.0-47.0); HEMOGLOBIN 8.8 g/dl (12.0-15.5); MEAN CORPUSCULAR HEMOGLOBIN 31.4 pg (27.0-33.0); MEAN CORPUSCULAR HGB CONC 31.7 g/dl (32.0-36.5); MEAN CORPUSCULAR VOLUME 99.3 fl (80.0-96.0); PLATELET COUNT, AUTOMATED 181 10^3/uL (150-450); WHITE BLOOD COUNT 4.8 10^3/uL (4.0-10.0)
[2020-02-18 06:50] LABS: ALT/SGPT 11 U/L (12-78); BILIRUBIN,TOTAL 0.5 MG/DL (0.2-1.0); BLOOD UREA NITROGEN 18 MG/DL (7-18); CALCIUM LEVEL 8.3 MG/DL (8.8-10.2); CARBON DIOXIDE LEVEL 30 MEQ/L (21-32); CHLORIDE LEVEL 110 MEQ/L (98-107); CREATININE FOR GFR 0.93 MG/DL (0.55-1.30); GLOMERULAR FILTRATION RATE > 60.0 (>39); GLUCOSE, FASTING 77 MG/DL (70-100); POTASSIUM SERUM 3.7 MEQ/L (3.5-5.1); SODIUM LEVEL 145 MEQ/L (136-145); TOTAL PROTEIN 5.6 GM/DL (6.4-8.2)
[2020-02-18] MEDS: ASPIRIN 81 MG CHEW TABLET PO SCH (08:43)
[2020-02-18] MEDS: VENLAFAXINE **XR** 75MG CAPSULE PO SCH (08:44)
[2020-02-18] MEDS: ACETAMINOPHEN TAB 650MG DOSE (2X325MG) PO SCH ×2 (08:44→21:33)
[2020-02-18] MEDS: OMEPRAZOLE 20 MG CAP PO SCH (08:44)
[2020-02-18] MEDS: CYANOCOBALAMIN 500 MCG TAB PO SCH (08:44)
[2020-02-18] MEDS: MULTIVITAMINS/MINERALS THERAP 1 TAB PO SCH (08:44)
[2020-02-18] MEDS: RIVASTIGMINE 3 MG PO SCH ×2 (08:44→21:33)
[2020-02-18] MEDS: POLYVINYL ALCOHOL OPHTH SOLN 15 ML(LIQUITEARS) OU SCH ×4 (08:45→21:34)
[2020-02-18] MEDS: TRIAMCINOLONE ACET 0.1% CREAM 15 GM TOP SCH ×2 (08:45→21:34)
[2020-02-18 09:00] VITALS: BP_SYST 124; BP_SYST 128; BP_SYST 129; BP_DIAS 85; BP_DIAS 86
[2020-02-18 14:00] VITALS: BP 119/76
--- NOTE | 2020-02-18 17:02 | IPNPDOC ---
Text Note Date of Service The patient was seen on 02/18/20. NOTE SUBJECTIVE: -No acute events overnight -Was restarted on clozaril yesterday for worsening behavioral symptoms -Dr. Hopper attempted to reach [place] neurologist, will try today -CTA head and neck were wnl with mild carotic disease that was not clinically significant to explain her orthostasis and dizziness OBJECTIVE: VITAL SIGNS: HDS, afebrile GENERAL: NAD EYES: PERRLA, EOMI HENT, MOUTH: Normocephalic, atraumatic, MMM NECK: SUPPLE, no JVD, no adenopathy CV: Regular rate and rhythm, S1S2 normal, no murmurs/rubs/gallops RESPIRATORY: Clear to auscultation bilaterally, no rales/rhonchi/wheezes GI: Normoactive bowel sounds, soft, nontender, nondistended, no rebound or guarding, no organomegaly : Deferred EXT: No LE extremity edema, WWP SKIN: Intact, no rashes, no lesions, no erythema NEUROLOGIC: Cranial Nerves II-XII are intact, no focal deficits, no nystagmus PSYCHIATRIC: oriented to self and place and not time LABORATORY DATA: reviewed WBC 4.8 hgb 8.8 platelets 181 na 145 K 3.7 Cr 0.93 6.5 BCx negative IMAGING: CTA head wnl, CTA neck with mild carotid disease, not clinically significant ASSESSMENT: 69 y/o W with Parkinson's dementia on clozapine for hallucinations and sinemet who resides in assisted living and was admitted for orthostatic hypotension and dizziness. PLAN: 1. Orthostatic hypotension/dizziness possibly 2/2 iatrogenic vs. progressive parkinson's dysautonomia. -Negative CTA head did not show posterior circulation issue -Unfortunately really needs her Clozapine and carbidopa levodopa, both of which cause orthostatic hypotension, have been monitored closely by her neurologist at the [facility]. Spoke with Myrna Madera LE[employer] SOFTENER to Dr. 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 Suggested that if persistent and debilitating and limiting her mobility to consider TID midodrine or florinef. -CTA neck without clinically significant disease -continue QHS clozapine, as she was starting to develop increased anger and behaviors with daughter-similar to when she was off medication in past. -C/w decreased the dose carbidopa/levodopa. -C/w PT/OT -encourage PO intake -daily CBC -tele. -Daily orthostatic VS. 2. Weakness likely 2/2 to problem #1 and chronic deconditioning from Parkinson's disease. -C/w treatment above, PT/OT. 3. Parkinson's disease. Has been stable. -C/w decreased dose of carbidopa/levodopa. 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 Depression/anxiety/hallucinations. Increased anger today with behaviors according to daughter who patient was calling throughout day. -Continue home clozapine. -C/w home meds. 5. GERD. -C/w PPI. 6. DVT ppx. -Enoxaparin SC daily. DISPOSITION: Currently in patient status. Likely rehab. VS,[place], I+O VS, Fishbone, I+O Laboratory Tests 02/17/20 17:39 02/18/20 05:45 Vital Signs Date Time Temp Pulse Resp B/P (MAP) Pulse Ox O2 Delivery O2 Flow Rate FiO2 02/18/20 06:00 97.1 78 16 124/76 (92) 91 Room Air I&O- Last 24 Hours up to 6 AM 02/18/20 05:59 Intake Total 1510 ml Output Total 0 ml Balance 1510 ml CESIA NAVARRETE MD Feb 18, 2020 09:17
[2020-02-18] MEDS: cloZAPine 25 MG TAB (S0136) PO SCH (21:33)
[2020-02-18] MEDS: cloZAPine 100 MG TAB (S0136) PO SCH (21:33)
[2020-02-18] MEDS: ENOXAPARIN 30MG/0.3ML SYRINGE (J1650 PER 10MG) SC SCH (21:34)
[2020-02-18 22:00] VITALS: BP 97/60
[2020-02-19] MEDS: SINEMET 25-100 MG TAB PO SCH ×5 (05:36→21:09)
[2020-02-19 06:00] VITALS: BP 130/72
[2020-02-19 07:08] LABS: HEMOGLOBIN 10.2 g/dl (12.0-15.5); MEAN CORPUSCULAR HEMOGLOBIN 31.7 pg (27.0-33.0); MEAN CORPUSCULAR HGB CONC 31.9 g/dl (32.0-36.5); MEAN CORPUSCULAR VOLUME 99.4 fl (80.0-96.0); PLATELET COUNT, AUTOMATED 191 10^3/uL (150-450); RED BLOOD COUNT 3.22 10^6/uL (4.00-5.40); WHITE BLOOD COUNT 4.7 10^3/uL (4.0-10.0)
[2020-02-19 07:25] LABS: ALBUMIN 3.3 GM/DL (3.2-5.2); BILIRUBIN,TOTAL 0.5 MG/DL (0.2-1.0); CALCIUM LEVEL 8.6 MG/DL (8.8-10.2); CREATININE FOR GFR 1.02 MG/DL (0.55-1.30); GLOMERULAR FILTRATION RATE 56.9 (>39); POTASSIUM SERUM 3.7 MEQ/L (3.5-5.1); TOTAL PROTEIN 6.1 GM/DL (6.4-8.2)
[2020-02-19] MEDS: CYANOCOBALAMIN 500 MCG TAB PO SCH (09:40)
[2020-02-19] MEDS: MULTIVITAMINS/MINERALS THERAP 1 TAB PO SCH (09:40)
[2020-02-19] MEDS: RIVASTIGMINE 3 MG PO SCH ×2 (09:40→21:08)
[2020-02-19] MEDS: ASPIRIN 81 MG CHEW TABLET PO SCH (09:40)
[2020-02-19] MEDS: OMEPRAZOLE 20 MG CAP PO SCH (09:40)
[2020-02-19] MEDS: TRIAMCINOLONE ACET 0.1% CREAM 15 GM TOP SCH ×2 (09:41→21:09)
[2020-02-19] MEDS: ACETAMINOPHEN TAB 650MG DOSE (2X325MG) PO SCH ×2 (09:41→21:08)
[2020-02-19] MEDS: POLYVINYL ALCOHOL OPHTH SOLN 15 ML(LIQUITEARS) OU SCH ×4 (09:41→21:09)
[2020-02-19] MEDS: VENLAFAXINE **XR** 75MG CAPSULE PO SCH (09:41)
[2020-02-19 14:00] VITALS: BP 83/58
--- NOTE | 2020-02-19 14:03 | IPNPDOC ---
Text Note Date of Service The patient was seen on 02/19/20. NOTE SUBJECTIVE: -No acute events overnight -Orthostatics were negative yesterday and again today -Otherwise no complaints this morning OBJECTIVE: VITAL SIGNS: HDS, afebrile GENERAL: NAD EYES: PERRLA, EOMI HENT, MOUTH: Normocephalic, atraumatic, MMM NECK: SUPPLE, no JVD, no adenopathy CV: Regular rate and rhythm, S1S2 normal, no murmurs/rubs/gallops RESPIRATORY: Clear to auscultation bilaterally, no rales/rhonchi/wheezes GI: Normoactive bowel sounds, soft, nontender, nondistended, no rebound or guarding, no organomegaly : Deferred EXT: No LE extremity edema, WWP SKIN: Intact, no rashes, no lesions, no erythema NEUROLOGIC: Cranial Nerves II-XII are intact, no focal deficits, no nystagmus PSYCHIATRIC: oriented to self and place and not time LABORATORY DATA: reviewed WBC 4.7 hgb 10.2 platelets 191 na 145 K 3.7 Cr 1.02 IMAGING: CTA head wnl, CTA neck with mild carotid disease, not clinically significant ASSESSMENT: 69 y/o W with Parkinson's dementia on clozapine for hallucinations and sinemet who resides in assisted living and was admitted for orthostatic h ypotension and dizziness most likely 2/2 progressive parkinson's dysautonomia. PLAN: 1. Orthostatic hypotension/dizziness possibly 2/2 iatrogenic vs. progressive parkinson's dysautonomia. -Negative CTA head did not show posterior circulation issue -Unfortunately really needs her Clozapine and carbidopa levodopa, both of which can exacerbate orthostatic hypotension. Spoke with Myrna Madera FILM SOUND COORDINATOR to Dr. 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 Suggested that if persistent and debilitating and limiting her mobility to consider TID midodrine or florinef but otherwise would not recommend stopping her clozapine because she had severe persistent debilitating loud command auditory hallucinations that have resolved since being placed on clozapine (managed by Dr. Chávez) -CTA neck without clinically significant disease -continue QHS clozapine, as she was starting to develop increased anger and behaviors with daughter-similar to when she was off medication in past. -C/w carbidopa/levodopa. Increased 3 early doses back to 2tabs, and the last 2 doses kept at 1 tab. (originally on 2 tabs 5 times a day since early December and had done well) -C/w PT/OT -encourage PO intake -daily CBC -tele. -Daily orthostatic VS. 2. Weakness likely 2/2 to problem #1 and chronic deconditioning from Parkinson's disease. -C/w treatment above, PT/OT. 3. Parkinson's disease. Has been stable. -C/w carbidopa/levodopa as described above -Spoke with her neurologist's office at [facility], most likely progressive dysautonomia from her Parkinson's and not iatrogenic 4. Depression/anxiety/hallucinations. Increased anger today with behaviors according to daughter who patient was calling throughout day. -Continue home clozapine. -C/w home meds. 5. GERD. -C/w PPI. 6. DVT ppx. -Enoxaparin SC daily. DISPOSITION: Currently in patient status. Likely rehab tomorrow. Will order covid-19 testing for rehab placement. VS,Fishbone, I+O VS, Fishbone, I+O Laboratory Tests 02/19/20 05:27 Vital Signs Date Time Temp Pulse Resp B/P (MAP) Pulse Ox O2 Delivery O2 Flow Rate FiO2 02/19/20 06:00 97.6 83 16 130/72 (91) 83 Room Air I&O- Last 24 Hours up to 6 AM 02/19/20 06:00 Intake Total 1585 ml Output Total 300 ml Balance 1285 ml CESIA NAVARRETE MD Feb 19, 2020 07:36
[2020-02-19] MEDS: cloZAPine 25 MG TAB (S0136) PO SCH (21:08)
[2020-02-19] MEDS: cloZAPine 100 MG TAB (S0136) PO SCH (21:08)
[2020-02-19] MEDS: ENOXAPARIN 30MG/0.3ML SYRINGE (J1650 PER 10MG) SC SCH (21:08)
[2020-02-19 21:19] VITALS: BP_SYST 108; BP_SYST 117; BP_SYST 92; BP_DIAS 54; BP_DIAS 63; BP_DIAS 65
[2020-02-20] MEDS: SINEMET 25-100 MG TAB PO SCH ×2 (05:28→08:37)
[2020-02-20 06:00] VITALS: BP 130/74
--- NOTE | 2020-02-20 08:30 | DS.PDOC ---
Discharge Summary General Date of Admission Feb 14, 2020 at 12:13 Date of Discharge 02/20/2020 Discharge Summary PROCEDURES PERFORMED DURING STAY: None ADMITTING DIAGNOSES: 1. Orthostatic hypotension with frequent falls DISCHARGE DIAGNOSES: 1. Symptomatic orthostasis 2/2 progressive Parkinson's dysautonomia 2. Parkinson's disease 3. Depression 4. anxiety 5. Vitamin B12 deficiency 6. GERD COMPLICATIONS/CHIEF COMPLAINT: Orthostatic Hypotension. HISTORY OF PRESENT ILLNESS: 69-year-old W with past medical history of Parkinson's disease for >20y, GERD, depression who presented to [facility] emergency room after being brought over from [facility] for having low blood pressure. According to notes the patient wasn't feeling well so her blood pressure was checked and noted to be "low". EMS was called for initial blood pressure 70/50. She was given 300 mL of normal saline bolus and that came up to 113 systolic. The patient was still complaining of increased lightheadedness and dizziness and was taken to the emergency room for further evaluation. The patient has had increased dizziness, lightheadedness over the past several weeks intermittent. She had a fall 2 weeks prior which she said was after feeling these same symptoms, without recent medications changed HOSPITAL COURSE: In the ED, VS showed BP ranged from 87-118/63-86. Patient had + orthostatic VS. CXR showed stable changes. Lactic acid was slightly elevated at 2.16. Potassium was low at 3.4. H/H 10.7/33. CXR showed stable bibasilar atelectatic changes. She was lethargic on arrival but improved after IVFs. Patient was admitted for orthostatic hypotension, weakness and dehydration. There was concern for i atrogenic orthostasis given her being on clozapine and sinemet and clozapine was briefly held and promptly restarted after she developed bizzare behavior and reported auditory stimuli. I finally called her [facility] neurology office that manage her Parkinson's and they were in agreement that this was most likely progressive dysautonomia from her Parkinson's and not her medications. She had a negative CTA head did not show posterior circulation issues and vascular neck US that did not show any clinically relevant stenotic disease or insufficiency. [facility] neurology suggested that if persistent and debilitating and limiting her mobility to consider TID midodrine or florinef but otherwise would not recommend stopping her clozapine because she had severe persistent debilitating loud command auditory hallucinations that have resolved since being placed on clozapine (managed by Dr. Chávez). At this time. I am not adding the midodrine or florinef because she is asymptomatic and only periodically orthostatic. These can be considered however by her PCP and rehab doctor if they become indicated. She is now being discharged to [facility]. DISCHARGE MEDICATIONS: Please see below. ALLERGIES: Please see below. PHYSICAL EXAMINATION ON DISCHARGE: VITAL SIGNS: Please see below. GENERAL: NAD EYES: PERRLA, EOMI HENT, MOUTH: Normocephalic, atraumatic, MMM NECK: SUPPLE, no JVD, no adenopathy CV: Regular rate and rhythm, S1S2 normal, no murmurs/rubs/gallops RESPIRATORY: Clear to auscultation bilaterally, no rales/rhonchi/wheezes GI: Normoactive bowel sounds, soft, nontender, nondistended, no rebound or guarding, no organomegaly : Deferred EXT: No LE extremity edema, WWP SKIN: Intact, no rashes, no lesions, no erythema NEUROLOGIC: Cranial Nerves II-XII are intact, no focal deficits, no nystagmus PSYCHIATRIC: oriented to self and place and not time LABORATORY DATA: Please see below. IMAGING: CTA head wnl, CTA neck with mild carotid disease, not clinically significant PROGNOSIS: Good, however with high likelihood that orthostasis will continue and likely progress to a time when midodrine or low dose florinef may become necessary. ACTIVITY: As tolerated DIET: Regular DISCHARGE PLAN: STR DISPOSITION: STR DISCHARGE INSTRUCTIONS: 1. STR ITEMS TO FOLLOWUP ON ON OUTPATIENT: 1. Parkinson's dysautonomia DISCHARGE CONDITION: Stable TIME SPENT ON DISCHARGE: 43 minutes. Vital Signs/I&Os Vital Signs Date Time Temp Pulse Resp B/P (MAP) Pulse Ox O2 Delivery O2 Flow Rate FiO2 02/20/20 06:00 97.6 77 16 130/74 (92) 90 Room Air I&O- Last 24 Hours up to 6 AM 02/20/20 05:59 Intake Total 840 ml Output Total 900 ml Balance -60 ml Microbiology Microbiology 02/14/20 Blood Culture - Final, Complete NO GROWTH AFTER 5 DAYS 02/14/20 Blood Culture - Final, Complete NO GROWTH AFTER 5 DAYS Discharge Medications Scheduled Acetaminophen (Acetaminophen) 325 Mg Tablet, 650 MG PO BID, (Reported) Aspirin (Aspirin) 81 Mg Tab.chew, 81 MG PO DAILY, (Reported) Carbidopa/Levodopa (Carbidopa-Levodopa 25-100 Tab) 1 Tab Tab, 2 TAB PO 5XD, (Reported) TAKES AT 0600, 1000, 1400, 1800, 2200 Carboxymethylcellulos/Glycerin (Refresh Optive Eye Drops) 1 Puneet Puneet, 1 DROP OU Q ID, (Reported) Clozapine (Clozapine) 100 Mg Tab, 100 MG PO QHS, (Reported) 125MG TOTAL QHS Clozapine (Clozapine) 25 Mg Tab, 25 MG PO QHS, (Reported) 125MG TOTAL QHS Cyanocobalamin (Vitamin B-12) (Vitamin B-12) 1,000 Mcg Tablet, 1,000 MCG PO DAILY, (Reported) Cyclosporine (Restasis) 0.05 % Emu, 1 DROP OU BID, (Reported) Multivitamin (Tab-A-Joaquín) 1 Each Tablet, 1 TAB PO DAILY, (Reported) Omeprazole (Omeprazole) 40 Mg Cap, 40 MG PO DAILY, (Reported) Rivastigmine Tartrate (Rivastigmine) 3 Mg Capsule, 3 MG PO BID, (Reported) Triamcinolone Acet (Triamcinolone Acetonide 0.1% Crm) 80 Gm Cream..g., 1 DOSE TOP BID, (Reported) APPLY TO RIGHT LOWER EXTREMITY - PATIENT KEEPS AT BEDSIDE Venlafaxine HCl (Effexor Xr) 75 Mg Cap, 75 MG PO DAILY, (Reported) Scheduled PRN Acetaminophen (Acetaminophen) 325 Mg Tablet, 650 MG PO Q4H PRN for PAIN, (Reported) Docusate Sodium (Colace) 100 Mg Cap, 100 MG PO DAILY PRN for CONSTIPATION, (Reported) Loperamide HCl (Anti-Diarrheal) 2 Mg Capsule, 2 MG PO PRN PRN for DIARRHEA, (Reported) Magnesium Hydroxide (Milk of Magnesia) 400 Mg/5 Ml Oral.susp, 10 ML PO DAILY PRN for CONSTIPATION, (Reported) Mometasone Furoate (Mometasone Furoate) 15 Gm Oint...g., 1 DOSE TOP BID PRN for STASIS DERM, (Reported) APPLY TO RIGHT LOWER LEG Nystatin (Nystatin Powder) 15 Gm Powder, 1 DOSE TOP BID PRN for RASH/ITCHING, (Reported) APPLY TO RIGHT KNEE Allergies Coded Allergies: tramadol (Verified Adverse Reaction, Intermediate, hallucinations, 02/11/20) CESIA NAVARRETE MD Feb 20, 2020 08:29
[2020-02-20] MEDS: CYANOCOBALAMIN 500 MCG TAB PO SCH (08:36)
[2020-02-20] MEDS: RIVASTIGMINE 3 MG PO SCH (08:36)
[2020-02-20] MEDS: MULTIVITAMINS/MINERALS THERAP 1 TAB PO SCH (08:37)
[2020-02-20] MEDS: OMEPRAZOLE 20 MG CAP PO SCH (08:37)
[2020-02-20] MEDS: VENLAFAXINE **XR** 75MG CAPSULE PO SCH (08:37)
[2020-02-20] MEDS: ACETAMINOPHEN TAB 650MG DOSE (2X325MG) PO SCH (08:37)
[2020-02-20] MEDS: POLYVINYL ALCOHOL OPHTH SOLN 15 ML(LIQUITEARS) OU SCH (08:38)
[2020-02-20] MEDS: TRIAMCINOLONE ACET 0.1% CREAM 15 GM TOP SCH (08:38)
[2020-02-20] MEDS: ASPIRIN 81 MG CHEW TABLET PO SCH (08:38)
== END 2020-02-20 12:00 | disposition home or self-care (01) | DRG 57 ==
LOC: EDBD 09:00 → M ED 09:00 → M ED INP 12:13 → ENRESERV 12:47 → M MSPAV 13:52
PROVIDERS: ADMIT Internal Medicine; ATTEND Internal Medicine
DX: G20 Parkinson's disease (principal); E87.2 Acidosis; E87.6 Hypokalemia; K21.9 Gastro-esophageal reflux disease without esophagitis; F41.9 Anxiety disorder, unspecified; E53.8 Deficiency of other specified B group vitamins; F32.9 Major depressive disorder, single episode, unspecified; I95.2 Hypotension due to drugs; R29.6 Repeated falls; G90.1 Familial dysautonomia [Riley-Day]; Z79.899 Other long term (current) drug therapy; Z79.82 Long term (current) use of aspirin; Z88.8 Allergy status to other drugs, medicaments and biological substances; E86.0 Dehydration; T42.8X5A Adverse effect of antiparkinsonism drugs and other central muscle-tone depressants, initial encounter

== ENCOUNTER → 2020-02-25 | Outpatient (REF) ==
[2020-02-25 11:41] LABS: HEMATOCRIT 32.1 % (36.0-47.0); HEMOGLOBIN 10.1 g/dl (12.0-15.5); MEAN CORPUSCULAR HEMOGLOBIN 32.1 pg (27.0-33.0); MEAN CORPUSCULAR HGB CONC 31.5 g/dl (32.0-36.5); MEAN CORPUSCULAR VOLUME 101.9 fl (80.0-96.0); PLATELET COUNT, AUTOMATED 232 10^3/uL (150-450); RED BLOOD COUNT 3.15 10^6/uL (4.00-5.40); WHITE BLOOD COUNT 4.5 10^3/uL (4.0-10.0)
[2020-02-25 12:47] LABS: CALCIUM LEVEL 8.6 MG/DL (8.8-10.2); CREATININE FOR GFR 1.03 MG/DL (0.55-1.30); GLOMERULAR FILTRATION RATE 56.2 (>39); POTASSIUM SERUM 3.4 MEQ/L (3.5-5.1)
== END ==
PROVIDERS: ATTEND Family Medicine
DX: G20 Parkinson's disease (principal)

== ENCOUNTER → 2020-02-28 | Outpatient (REF) | PROVIDERS: ATTEND Family Medicine | DX: E87.6 Hypokalemia (principal) ==

== ENCOUNTER → 2020-03-02 | Outpatient (REF) ==
[2020-03-02 11:21] LABS: CALCIUM LEVEL 8.7 MG/DL (8.8-10.2); CREATININE FOR GFR 1.21 MG/DL (0.55-1.30); GLOMERULAR FILTRATION RATE 46.7 (>39); POTASSIUM SERUM 3.6 MEQ/L (3.5-5.1)
== END ==
PROVIDERS: ATTEND Family Medicine
DX: E87.6 Hypokalemia (principal)

== ENCOUNTER → 2020-03-04 | Outpatient (REF) ==
[~2020-03-04] MED LIST changes: +ASPI-161 PO; -ASPI81TA85 PO; +ASPI81TA86 PO; +FLUD0.1T PO; +MIDO5TA PO; +POTA20TA6 PO; -QUET1TAB7 PO; +QUET25TA3 PO; +REFR0.5D8 OU
[2020-03-04 11:28] LABS: HEMATOCRIT 35.6 % (36.0-47.0); HEMOGLOBIN 11.2 g/dl (12.0-15.5); MEAN CORPUSCULAR HEMOGLOBIN 31.9 pg (27.0-33.0); MEAN CORPUSCULAR HGB CONC 31.5 g/dl (32.0-36.5); MEAN CORPUSCULAR VOLUME 101.4 fl (80.0-96.0); PLATELET COUNT, AUTOMATED 248 10^3/uL (150-450); RED BLOOD COUNT 3.51 10^6/uL (4.00-5.40); WHITE BLOOD COUNT 8.3 10^3/uL (4.0-10.0)
[2020-03-04 12:01] LABS: CALCIUM LEVEL 9.5 MG/DL (8.8-10.2); CREATININE FOR GFR 1.48 MG/DL (0.55-1.30); POTASSIUM SERUM 4.2 MEQ/L (3.5-5.1)
== END ==
PROVIDERS: ATTEND Family Medicine
DX: E87.6 Hypokalemia (principal)

== ENCOUNTER → 2020-03-05 | Outpatient (REF) | payer MEDICARE, MEDICAID ==
[2020-03-06 00:10] LABS: APPEARANCE, URINE CLEAR (CLEAR); BACTERIA, URINE AUTO NEGATIVE (NEGATIVE); BILIRUBIN, URINE AUTO NEGATIVE (NEGATIVE); BLOOD, URINE BLOOD NEGATIVE (NEGATIVE); COLOR, URINE YELLOW (YELLOW); GLUCOSE, URINE (UA) AUTO NEGATIVE (NEGATIVE); KETONE, URINE AUTO TRACE mg/dL (NEGATIVE); LEUKOCYTE ESTERASE, URINE AUTO NEGATIVE (NEGATIVE); MUCUS, URINE SMALL (NEGATIVE); NITRITE, URINE AUTO NEGATIVE (NEGATIVE); PROTEIN, URINE AUTO NEGATIVE (NEGATIVE); RBC, URINE AUTO 2 /HPF (0-3); SPECIFIC GRAVITY URINE AUTO 1.011 (1.002-1.035); SQUAMOUS EPITHELIAL CELL UR AU 1 /HPF (0-6); UROBILINOGEN, URINE AUTO 0.2 mg/dL (0.0-2.0); WBC, URINE AUTO 1 /HPF (0-3)
== END ==
PROVIDERS: ATTEND Family Medicine
DX: N17.9 Acute kidney failure, unspecified (principal)

== ENCOUNTER → 2020-03-09 | Outpatient (REF) ==
[~2020-03-09] MED LIST changes: -ASPI-161 PO; +ASPI81TA85 PO; -ASPI81TA86 PO; -FLUD0.1T PO; -MIDO5TA PO; -POTA20TA6 PO; +QUET1TAB7 PO; -QUET25TA3 PO; -REFR0.5D8 OU
[2020-03-09 10:28] LABS: HEMATOCRIT 36.4 % (36.0-47.0); HEMOGLOBIN 11.2 g/dl (12.0-15.5); MEAN CORPUSCULAR HEMOGLOBIN 31.3 pg (27.0-33.0); MEAN CORPUSCULAR HGB CONC 30.8 g/dl (32.0-36.5); MEAN CORPUSCULAR VOLUME 101.7 fl (80.0-96.0); PLATELET COUNT, AUTOMATED 251 10^3/uL (150-450); RED BLOOD COUNT 3.58 10^6/uL (4.00-5.40); WHITE BLOOD COUNT 4.9 10^3/uL (4.0-10.0)
[2020-03-09 10:47] LABS: CALCIUM LEVEL 9.1 MG/DL (8.8-10.2); CREATININE FOR GFR 1.22 MG/DL (0.55-1.30); GLOMERULAR FILTRATION RATE 46.3 (>39)
== END ==
PROVIDERS: ATTEND Family Medicine
DX: N17.9 Acute kidney failure, unspecified (principal)

== ENCOUNTER → 2020-03-16 | Outpatient (REF) | payer MEDICARE, MEDICAID ==
[2020-03-16 11:56] LABS: HEMOGLOBIN 10.8 g/dl (12.0-15.5); MEAN CORPUSCULAR HEMOGLOBIN 31.9 pg (27.0-33.0); MEAN CORPUSCULAR HGB CONC 31.8 g/dl (32.0-36.5); MEAN CORPUSCULAR VOLUME 100.3 fl (80.0-96.0); PLATELET COUNT, AUTOMATED 231 10^3/uL (150-450); RED BLOOD COUNT 3.39 10^6/uL (4.00-5.40); WHITE BLOOD COUNT 7.5 10^3/uL (4.0-10.0)
[2020-03-16 12:24] LABS: CREATININE FOR GFR 1.16 MG/DL (0.55-1.30)
== END ==
PROVIDERS: ATTEND Family Medicine
DX: I95.1 Orthostatic hypotension (principal)

== ENCOUNTER → 2020-03-20 | Outpatient (REF) | payer MEDICARE, MEDICAID, BC ==
[2020-03-20 10:25] LABS: BASO % 0.6 % (0.0-1.0); EOS # 0.2 10^3/uL (0.0-0.5); EOS % 3.4 % (0.0-3.0); HEMATOCRIT 35.6 % (36.0-47.0); HEMOGLOBIN 11.4 g/dl (12.0-15.5); LYMPH % 15.5 % (24.0-44.0); MEAN CORPUSCULAR HEMOGLOBIN 32.1 pg (27.0-33.0); MEAN CORPUSCULAR VOLUME 100.3 fl (80.0-96.0); MONO # 0.5 10^3/uL (0.0-0.8); MONO % 8.2 % (0.0-5.0); NEUTROPHILS # 4.6 10^3/uL (1.5-8.5); NEUTROPHILS % 72.1 % (36.0-66.0); PLATELET COUNT, AUTOMATED 236 10^3/uL (150-450); RED BLOOD COUNT 3.55 10^6/uL (4.00-5.40); WHITE BLOOD COUNT 6.4 10^3/uL (4.0-10.0)
== END ==
PROVIDERS: ATTEND Psychiatry & Neurology Psychiatry
DX: Z79.899 Other long term (current) drug therapy (principal)

== ENCOUNTER → 2020-04-15 | Outpatient (REF) | payer MEDICARE, MEDICAID, BC ==
[~2020-04-15] MED LIST changes: +ASPI-161 PO; -ASPI81TA85 PO; +ASPI81TA86 PO; +FLUD0.1T PO; +MIDO5TA PO; +POTA20TA6 PO; +REFR0.5D8 OU
[2020-05-15 15:54] LABS: BASO % 0.6 % (0.0-1.0); EOS # 0.2 10^3/uL (0.0-0.5); EOS % 4.3 % (0.0-3.0); HEMATOCRIT 32.5 % (36.0-47.0); HEMOGLOBIN 10.4 g/dl (12.0-15.5); LYMPH # 0.9 10^3/uL (1.5-5.0); LYMPH % 19.5 % (24.0-44.0); MEAN CORPUSCULAR HEMOGLOBIN 32.2 pg (27.0-33.0); MEAN CORPUSCULAR VOLUME 100.6 fl (80.0-96.0); MONO # 0.4 10^3/uL (0.0-0.8); MONO % 8.1 % (0.0-5.0); NEUTROPHILS # 3.3 10^3/uL (1.5-8.5); NEUTROPHILS % 67.3 % (36.0-66.0); PLATELET COUNT, AUTOMATED 202 10^3/uL (150-450); RED BLOOD COUNT 3.23 10^6/uL (4.00-5.40); WHITE BLOOD COUNT 4.8 10^3/uL (4.0-10.0)
== END ==
PROVIDERS: ATTEND Psychiatry & Neurology Psychiatry
DX: R44.3 Hallucinations, unspecified (principal)

== ENCOUNTER → 2020-04-29 | Outpatient (REF) | payer MEDICARE, MEDICAID, BC ==
[2020-05-16 20:47] LABS: ALBUMIN 3.3 GM/DL (3.2-5.2); ALT/SGPT 12 U/L (12-78); BILIRUBIN,TOTAL 0.3 MG/DL (0.2-1.0); BLOOD UREA NITROGEN 26 MG/DL (7-18); CALCIUM LEVEL 8.7 MG/DL (8.8-10.2); CARBON DIOXIDE LEVEL 29 MEQ/L (21-32); CHLORIDE LEVEL 112 MEQ/L (98-107); CREATININE FOR GFR 1.16 MG/DL (0.55-1.30); GLOMERULAR FILTRATION RATE 48.9 (>39); GLUCOSE, FASTING 82 MG/DL (70-100); POTASSIUM SERUM 3.9 MEQ/L (3.5-5.1); SODIUM LEVEL 145 MEQ/L (136-145); TOTAL PROTEIN 6.3 GM/DL (6.4-8.2)
[2020-05-26 10:19] LABS: BASO % 0.4 % (0.0-1.0); EOS # 0.2 10^3/uL (0.0-0.5); EOS % 4.7 % (0.0-3.0); HEMATOCRIT 31.7 % (36.0-47.0); LYMPH # 0.7 10^3/uL (1.5-5.0); LYMPH % 15.3 % (24.0-44.0); MEAN CORPUSCULAR HEMOGLOBIN 31.8 pg (27.0-33.0); MEAN CORPUSCULAR HGB CONC 31.5 g/dl (32.0-36.5); MONO # 0.4 10^3/uL (0.0-0.8); MONO % 8.5 % (0.0-5.0); NEUTROPHILS # 3.3 10^3/uL (1.5-8.5); NEUTROPHILS % 70.9 % (36.0-66.0); PLATELET COUNT, AUTOMATED 216 10^3/uL (150-450); RED BLOOD COUNT 3.14 10^6/uL (4.00-5.40); WHITE BLOOD COUNT 4.7 10^3/uL (4.0-10.0)
[2020-06-08 12:59] LABS: BETA 2 MICROGLOBULIN See Separate Report mg/l; FREE KAPPA LIGHT CHAINS SERUM See Separate Report; FREE LAMBDA LIGHT CHAINS SERUM See Separate Report
[2020-06-08 13:00] LABS: KAPPA/LAMBDA RATIO SERUM See Separate Report
[2020-06-08 15:18] LABS: ALBUMIN 3.72 GM/DL (3.29-5.55); ALBUMIN % 59.1 % (55.8-66.1); ALPHA-1-GLOBULIN % 5.5 % (2.9-4.9); ALPHA-1-GLOBULINS 0.35 GM/DL (0.17-0.41); ALPHA-2-GLOBULINS 0.61 GM/DL (0.42-0.99); ALPHA-2-GLOBULINS % 9.7 % (7.1-11.8); BETA-1-GLOBULINS 0.47 GM/DL (0.28-0.60); BETA-1-GLOBULINS % 7.5 % (4.7-7.2); BETA-2-GLOBULINS 0.49 GM/DL (0.19-0.55); BETA-2-GLOBULINS % 7.8 % (3.2-6.5); GAMMA GLOBULIN % 10.4 % (11.1-18.8); GAMMA GLOBULINS 0.66 GM/DL (0.65-1.58)
[2020-06-09 08:16] LABS: TOTAL PROTEIN 6.3 GM/DL (6.4-8.2)
== END ==
PROVIDERS: ATTEND Internal Medicine
DX: D47.2 Monoclonal gammopathy (principal); E78.00 Pure hypercholesterolemia, unspecified

== ENCOUNTER → 2020-05-13 | Outpatient (REF) | payer MEDICARE, MEDICAID, BC ==
[2020-05-13 12:51] LABS: BASO % 0.5 % (0.0-1.0); EOS # 0.2 10^3/uL (0.0-0.5); EOS % 4.8 % (0.0-3.0); HEMATOCRIT 35.2 % (36.0-47.0); HEMOGLOBIN 11.1 g/dl (12.0-15.5); LYMPH # 0.9 10^3/uL (1.5-5.0); LYMPH % 21.2 % (24.0-44.0); MEAN CORPUSCULAR HEMOGLOBIN 32.1 pg (27.0-33.0); MEAN CORPUSCULAR HGB CONC 31.5 g/dl (32.0-36.5); MEAN CORPUSCULAR VOLUME 101.7 fl (80.0-96.0); MONO # 0.3 10^3/uL (0.0-0.8); MONO % 7.6 % (0.0-5.0); NEUTROPHILS # 2.8 10^3/uL (1.5-8.5); NEUTROPHILS % 65.7 % (36.0-66.0); PLATELET COUNT, AUTOMATED 255 10^3/uL (150-450); RED BLOOD COUNT 3.46 10^6/uL (4.00-5.40); WHITE BLOOD COUNT 4.3 10^3/uL (4.0-10.0)
== END ==
PROVIDERS: ATTEND Psychiatry & Neurology Psychiatry
DX: Z79.899 Other long term (current) drug therapy (principal)

== ENCOUNTER 2020-06-17 08:33 | Inpatient (IN) | payer MEDICARE, MEDICAID ==
[~2020-06-17] VITALS: Ht 167.6 cm; Wt 101.4 kg
[~2020-06-17 08:33] MED LIST changes: -ASPI-161 PO; -FLUD0.1T PO; -MIDO5TA PO; -POTA20TA6 PO; -REFR0.5D8 OU
[2020-06-17] MEDS: FLUDROCORTISONE ACETATE 0.1 MG TAB PO SCH (09:00)
[2020-06-17] MEDS: TRIAMCINOLONE ACET 0.1% CREAM 80 GM TOP SCH ×2 (09:00→21:22)
--- NOTE | 2020-06-17 09:42 | REPVR ---
PROCEDURE INFORMATION: Exam: CT Head Without Contrast Exam date and time: 06/17/2020 9:15 AM Age: 70 years old Clinical indication: Injury or trauma; Fall; Blunt trauma (contusions or hematomas) TECHNIQUE: Imaging protocol: Computed tomography of the head without contrast. Radiation optimization: All CT scans at this facility use at least one of these dose optimization techniques: automated exposure control; mA and/or kV adjustment per patient size (includes targeted exams where dose is matched to clinical indication); or iterative reconstruction. COMPARISON: No relevant prior studies available. FINDINGS: Brain: There is no acute intracranial hemorrhage. There are no extra-axial fluid collections. There is lucency in the cerebral white matter, likely microvascular disease although non-specific. Castillo white differentiation is intact. There is no mass effect or midline shift. Cerebral ventricles: The ventricles and sulci are enlarged, consistent with age-related volume loss / atrophy. No hydrocephalus. Bones/joints: No acute fracture. Paranasal sinuses: Visualized sinuses are unremarkable. No fluid levels. Mastoid air cells: No significant mastoid effusion. Vasculature: There is vascular calcification. Soft tissues: Unremarkable as visualized. Other findings: No evidence of mass. IMPRESSION: 1. No evidence of acute intracranial abnormality. No evidence of acute infarction, hemorrhage, or mass. 2. Senescent changes. Electronically signed by: Joy Conley On 06/17/2020 09:41:56 AM
--- NOTE | 2020-06-17 09:42 | REPVR ---
PROCEDURE INFORMATION: Exam: XR Left Hip with Pelvis when Performed Exam date and time: 06/17/2020 8:43 AM Age: 70 years old Clinical indication: Hip pain; Left hip; Prior surgery; Additional info: Fall TECHNIQUE: Imaging protocol: XR Left hip with pelvis when performed. Views: 2 or 3 views. COMPARISON: No relevant prior studies available. FINDINGS: Bones/joints: Left LALY. Hardware appears intact. Mild right hip joint DJD. Degenerative change of the lower lumbar spine. Mild bilateral sacroiliac joint DJD. No acute fracture. No dislocation. Soft tissues: Unremarkable. IMPRESSION: No acute osseous abnormality is identified. Electronically signed by: Jacklyn Boucher On 06/17/2020 09:42:33 AM
--- NOTE | 2020-06-17 09:52 | REPVR ---
PROCEDURE INFORMATION: Exam: CT Maxillofacial Without Contrast Exam date and time: 06/17/2020 9:15 AM Age: 70 years old Clinical indication: Injury or trauma; Fall; Blunt trauma (contusions or hematomas); Nose TECHNIQUE: Imaging protocol: Computed tomography images of the face without contrast. Radiation optimization: All CT scans at this facility use at least one of these dose optimization techniques: automated exposure control; mA and/or kV adjustment per patient size (includes targeted exams where dose is matched to clinical indication); or iterative reconstruction. COMPARISON: No relevant prior studies available. FINDINGS: Orbital cavity: Orbits are normal. Globes are unremarkable. No exophthalmos. Bones/joints: Nasal septum is deviated to left. There are not significantly displaced nasal bone fractures. No mandible, zygomatic arch, or orbital wall fracture. Paranasal sinuses: There is mild mucosal thickening in bilateral inferior maxillary sinuses. No air-fluid levels. Soft tissues: There is soft swelling over nasal bones. Nasal cavity: There is a right janny bullosa. IMPRESSION: Nasal bone fractures. Electronically signed by: Joy Conley On 06/17/2020 09:52:00 AM
--- NOTE | 2020-06-17 09:53 | REPVR ---
PROCEDURE INFORMATION: Exam: CT Cervical Spine Without Contrast Exam date and time: 06/17/2020 9:15 AM Age: 70 years old Clinical indication: Injury or trauma; Fall; Blunt trauma TECHNIQUE: Imaging protocol: Computed tomography images of the cervical spine without contrast. Radiation optimization: All CT scans at this facility use at least one of these dose optimization techniques: automated exposure control; mA and/or kV adjustment per patient size (includes targeted exams where dose is matched to clinical indication); or iterative reconstruction. COMPARISON: No relevant prior studies available. FINDINGS: Vertebrae: There is a C6 fracture involving the bilateral lamina at base of spinous process and extending anteriorly and laterally to involve the right inferior C6 facet. Facet joints remain well aligned. There is grade 1 anterolisthesis of C5 on and C7 on T1. There is partial fusion bilateral C5 and C6 facets. Discs/Spinal canal/Neural foramina: There are mild degenerative changes small uncinate and vertebral osteophytes with no significant spinal stenosis and [id number]-[id number] neural foraminal narrowing Soft tissues: There is calcification at carotid bifurcations. Lungs: Lung apices are unremarkable for acute finding. IMPRESSION: Posterior element fracture as described. Electronically signed by: Joy Conley On 06/17/2020 09:52:55 AM
[2020-06-17] MEDS ORDERED: NS 500 ML IV ONE (11:30)
[2020-06-17 12:00] LABS: HEMATOCRIT 36.3 % (36.0-47.0); HEMOGLOBIN 11.6 g/dl (12.0-15.5); MEAN CORPUSCULAR HEMOGLOBIN 31.6 pg (27.0-33.0); MEAN CORPUSCULAR VOLUME 98.9 fl (80.0-96.0); PLATELET COUNT, AUTOMATED 223 10^3/uL (150-450); RED BLOOD COUNT 3.67 10^6/uL (4.00-5.40); WHITE BLOOD COUNT 9.7 10^3/uL (4.0-10.0)
[2020-06-17] MEDS: MIDODRINE 5 MG TAB PO SCH ×2 (12:00→18:06)
[2020-06-17] MEDS ORDERED: FLUD0.1T PO (12:06)
[2020-06-17] MEDS ORDERED: POTA20TA6 PO (12:06)
[2020-06-17] MEDS ORDERED: ASPI-161 PO (12:06)
[2020-06-17] MEDS ORDERED: MIDO5TA PO (12:06)
[2020-06-17] MEDS ORDERED: REFR0.5D8 OU (12:06)
[2020-06-17 12:07] LABS: CALCIUM LEVEL 8.9 MG/DL (8.8-10.2); CREATININE FOR GFR 1.09 MG/DL (0.55-1.30); GLOMERULAR FILTRATION RATE 52.5 (>39); POTASSIUM SERUM 4.2 MEQ/L (3.5-5.1)
--- NOTE | 2020-06-17 12:27 | HPEPDOC ---
General Date of Admission Jun 17, 2020 at 12:02 Date of Service: Jun 17, 2020 Chief Complaint The patient is a 70-year-old female admitted with a reason for visit of FALL. Source: Patient Exam Limitations: No limitations Timing/Duration: 4-6 hours Severity: Moderate Associated Symptoms: Mechanical fall History of Present Illness Patient 69 years old female with past medical history of Parkinson's disease, GERD, depression who presented to ER after mechanical fall. In the morning patie nt developed mechanical fall due to slippery, she stated that she didn't loss of consciousness. In ER patient was found to have positive orthostatic vital signs, imaging studies showed Nasal bone fractures, C6 fracture involving the bilateral lamina at base of spinous process and extending anteriorly and laterally to involve the right inferior C6 facet. Orthopedic team was contacted, recommended C-collar Home Medications Scheduled Acetaminophen (Acetaminophen) 325 Mg Tablet, 650 MG PO BID, (Reported) Aspirin (Aspirin EC) 81 Mg Tablet.dr, 81 MG PO DAILY, (Reported) Carbidopa/Levodopa (Carbidopa-Levodopa 25-100 Tab) 1 Tab Tab, 2 TAB PO 5XD, (Reported) TAKES AT 0600, 1000, 1400, 1800, 2200 Carboxymethylcellulose Sodium (Refresh Tears) 15 Ml Drops, 1 DROP OU QID, (Reported) Clozapine (Clozapine) 100 Mg Tab, 100 MG PO QHS, (Reported) 125MG TOTAL QHS Clozapine (Clozapine) 25 Mg Tab, 25 MG PO QHS, (Reported) 125MG TOTAL QHS Docusate Sodium (Colace) 100 Mg Cap, 100 MG PO DAILY, (Reported) Fludrocortisone Acetate (Fludrocortisone Acetate) 0.1 Mg Tablet, 0.1 MG PO DAILY, (Reported) Midodrine HCl (Midodrine HCl) 5 Mg Tablet, 5 MG PO TID, (Reported) 0600, 1400, 2100 Multivitamin (Tab-A-Joaquín) 1 Each Tablet, 1 TAB PO DAILY, (Reported) Omeprazole (Omeprazole) 40 Mg Cap, 40 MG PO DAILY, (Reported) Potassium Chloride (Potassium Chloride) 20 Meq Tab.er.prt, 20 MEQ PO DAILY, (Reported) Rivastigmine Tartrate (Rivastigmine) 3 Mg Capsule, 3 MG PO BID, (Reported) Triamcinolone Acet (Triamcinolone Acetonide 0.1% Crm) 80 Gm Cream..g., 1 DOSE TOP BID, (Reported) APPLY TO RIGHT LOWER EXTREMITY - PATIENT KEEPS AT BEDSIDE Venlafaxine HCl (Effexor Xr) 75 Mg Cap, 75 MG PO QHS, (Reported) Scheduled PRN Acetaminophen (Acetaminophen) 325 Mg Tablet, 650 MG PO Q4H PRN for PAIN, (Reported) Magnesium Hydroxide (Milk of Magnesia) 400 Mg/5 Ml Oral.susp, 10 ML PO DAILY PRN for CONSTIPATION, (Reported) Allergies Coded Allergies: tramadol (Verified Adverse Reaction, Intermediate, hallucinations, 02/11/20) Past Medical History Medical History 1. Parkinson's disease 2. Depression 3. anxiety 4. Vitamin B12 deficiency 5. GERD Surgical History 1. Back surgery 2. Hip surgery, left 3. knee surgery Family History Patient was unable to recall family history due to dementia. Social History * Smoker: Denies Alcohol: Denies Drugs: denies A-FIB/CHADSVASC A-FIB History Current/History of A-Fib/PAF?: No Current PO Anticoag Therapy: No Review of Systems Constitutional: Denies: Chills, Fever Eyes: Denies: Pain ENT: Denies: Head Aches Skin: Denies: Rash, Lesions Pulmonary: Denies: Dyspnea, Cough Cardiovascular: Denies: Chest Pain, Palpitations Gastrointestinal: Denies: Nausea, Vomiting, Abdominal Pain Genitourinary: Denies: Dysuria Hematologic: Denies: Purpura Endocrine: Denies: Polydipsia, Polyphagia Musculoskeletal: Reports: Neck Pain Neurological: Denies: Weakness, Numbness Psych: Reports: Mood Normal Physical Examination General Exam: Positive: Alert, Cooperative Eye Exam: Positive: PERRLA ENT Exam: Positive: Nares Patent, Other ENT (small hematoma over nose bones) Neck Exam: Positive: Supple; Negative: JVD Chest Exam: Positive: Clear to auscultation Heart Exam: Positive: Rate Normal Telemetry: Positive: No significant arrhythmia Abdomen Exam: Positive: Normal bowel sounds Extremity Exam: Negative: Clubbing Skin Exam: Positive: Nl turgor and temperature Neuro Exam: Positive: Normal Speech, Cranial Nerves 3-12 NL Psych Exam: Positive: Mental status NL, Oriented x 3 Vital Signs Vital Signs Date Time Temp Pulse Resp B/P (MAP) Pulse Ox O2 Delivery O2 Flow Rate FiO2 06/17/20 08:45 96.8 90 18 128/81 (97) 92 Room Air Laboratory Data Labs 24H Laboratory Tests 2 06/17/20 11:25: Nucleated Red Blood Cells % (auto) 0.0, Urine Color STRAW, Urine Appearance CLEAR, Urine pH 6.0, Urine Specific [place] 1.006, Urine Protein NEGATIVE, Urine Glucose (UA) NEGATIVE, Urine Ketones NEGATIVE, Urine Blood 1+H, Urine Nitrite NEGATIVE, Urine Bilirubin NEGATIVE, Urine Urobilinogen 0.2, Urine Leukocyte Esterase NEGATIVE, Urine WBC (Auto) 0, Urine RBC (Auto) 3, Urine Hyaline Casts (Auto) 0, Urine Bacteria (Auto) NEGATIVE, Urine Squamous Epithelial Cells 1, Urine Sperm (Auto) , Anion Gap 6L, Glomerular Filtration Rate 52.5, Calcium Level 8.9 CBC/BMP Laboratory Tests 06/17/20 11:25 Assessment/Plan Patient 69 years old female with past medical history of Parkinson's disease, GERD, depression who presented to ER after mechanical fall. In the morning patient developed mechanical fall due to slippery, she stated that she didn't loss of consciousness. In ER patient was found to have positive orthostatic vital signs, imaging studies showed Nasal bone fractures, C6 fracture involving the bilateral lamina at base of spinous process and extending anteriorly and laterally to involve the right inferior C6 facet. Orthopedic team was contacted, recommended C-collar Problems (1) Orthostatic hypotension Status: Acute Problem Text: Secondary to advanced Parkinson's diseases PT/OT (2) C6 cervical fracture Status: Acute Problem Text: Appreciate/agree with orthopedic surgeon consult c -collar Pain management (3) Parkinson disease Status: Chronic Problem Text: Continue home meds (4) Fall Status: Acute Problem Text: PT/OT (5) Depression Status: Chronic Problem Text: Continue home meds (6) Nose fracture Status: Acute Problem Text: Patient does not have any nosebleed or dislocation of bones No indication for surgical intervention Plan / VTE VTE Prophylaxis Ordered?: Yes CASSIE QUINTANA DO Jun 17, 2020 12:27
[2020-06-17 13:15] VITALS: BP 158/67
[2020-06-17] MEDS: DOCUSATE SODIUM 100 MG CAP PO SCH (13:57)
[2020-06-17] MEDS: OMEPRAZOLE 20 MG CAP PO SCH (13:57)
[2020-06-17] MEDS: ASPIRIN 81 MG ENTERIC TAB PO SCH (13:57)
[2020-06-17] MEDS: POTASSIUM CHLORIDE 10 MEQ SR TABLET PO SCH (13:58)
[2020-06-17] MEDS: SINEMET 25-100 MG TAB PO SCH ×3 (13:58→21:20)
[2020-06-17] MEDS: ACETAMINOPHEN TAB 650MG DOSE (2X325MG) PO PRN (15:23)
--- NOTE | 2020-06-17 18:32 | ECGEPIP ---
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
[2020-06-17] MEDS: cloZAPine 100 MG TAB (S0136) PO SCH (21:20)
[2020-06-17] MEDS: cloZAPine 25 MG TAB (S0136) PO SCH (21:20)
[2020-06-17] MEDS: HEPARIN SOD (PORCINE) 5000UNITS/ML 1ML VIAL/SYRINGE SC SCH (21:21)
[2020-06-17] MEDS: VENLAFAXINE **XR** 75MG CAPSULE PO SCH (21:21)
[2020-06-17 22:00] VITALS: BP 126/64
[2020-06-18] MEDS: ACETAMINOPHEN TAB 650MG DOSE (2X325MG) PO PRN ×2 (03:39→08:11)
[2020-06-18] MEDS: MIDODRINE 5 MG TAB PO SCH ×3 (05:48→18:21)
[2020-06-18] MEDS: SINEMET 25-100 MG TAB PO SCH ×5 (05:48→21:15)
[2020-06-18 06:00] VITALS: BP 132/80
[2020-06-18 06:23] LABS: HEMATOCRIT 32.3 % (36.0-47.0); HEMOGLOBIN 10.3 g/dl (12.0-15.5); MEAN CORPUSCULAR HEMOGLOBIN 32.1 pg (27.0-33.0); MEAN CORPUSCULAR HGB CONC 31.9 g/dl (32.0-36.5); MEAN CORPUSCULAR VOLUME 100.6 fl (80.0-96.0); PLATELET COUNT, AUTOMATED 196 10^3/uL (150-450); RED BLOOD COUNT 3.21 10^6/uL (4.00-5.40); WHITE BLOOD COUNT 6.4 10^3/uL (4.0-10.0)
[2020-06-18 07:16] LABS: CALCIUM LEVEL 8.8 MG/DL (8.8-10.2); CREATININE FOR GFR 1.07 MG/DL (0.55-1.30); GLOMERULAR FILTRATION RATE 53.7 (>39); MAGNESIUM LEVEL 2.1 MG/DL (1.8-2.4); POTASSIUM SERUM 3.9 MEQ/L (3.5-5.1)
[2020-06-18] MEDS: OMEPRAZOLE 20 MG CAP PO SCH (08:09)
[2020-06-18] MEDS: ASPIRIN 81 MG ENTERIC TAB PO SCH (08:09)
[2020-06-18] MEDS: POTASSIUM CHLORIDE 10 MEQ SR TABLET PO SCH (08:10)
[2020-06-18] MEDS: DOCUSATE SODIUM 100 MG CAP PO SCH (08:10)
[2020-06-18] MEDS: FLUDROCORTISONE ACETATE 0.1 MG TAB PO SCH ×2 (08:18→21:15)
[2020-06-18] MEDS: HEPARIN SOD (PORCINE) 5000UNITS/ML 1ML VIAL/SYRINGE SC SCH ×2 (08:22→21:15)
[2020-06-18] MEDS: TRIAMCINOLONE ACET 0.1% CREAM 80 GM TOP SCH ×2 (08:22→21:16)
[2020-06-18] MEDS ORDERED: FLUBLOK(EGG FREE)(QUAD)INFLUENZA VACC 0.5ML SYRINGE 18YRS & OLDER IM ONE (09:00)
[2020-06-18 09:30] VITALS: BP 103/55
[2020-06-18 09:33] VITALS: BP 77/44
[2020-06-18 10:00] VITALS: BP 97/53
--- NOTE | 2020-06-18 12:36 | IPNPDOC ---
Text Note Date of Service The patient was seen on 06/18/20. NOTE Subjective: No any acute events overnight. Patient developed positive orthost atic vital signs during physical therapy. Objective: GENERAL APPEARANCE: NAD HEENT: no scleral icterus, no JVD, EOMI, C-collar, small hematoma over nasal bones CARDIOVASCULAR: S1S2 LUNGS: CTA ABDOMEN: soft & not tender w palpitation MUSCULOSKELETAL: no cyanosis, no swelling INTEGUMENT: no generalized palor NEUROLOGICAL: cranial nerve function from 2-12 intact intact, follows commands, speech not dysarthric Assessment/Plan Patient 69 years old female with past medical history of Parkinson's disease, GERD, depression who presented to ER after mechanical fall. In the morning patie nt developed mechanical fall due to slippery, she stated that she didn't loss of consciousness. In ER patient was found to have positive orthostatic vital signs, imaging studies showed Nasal bone fractures, C6 fracture involving the bilateral lamina at base of spinous process and extending anteriorly and laterally to involve the right inferior C6 facet. Orthopedic team was contacted, recommended C-collar Problems (1) Orthostatic hypotension Secondary to advanced Parkinson's diseases Continue midodrine, fludrocortisone PT/OT recommended rehabilitation (2) C6 cervical fracture orthopedic surgeon consult recommended conservative treatment c -collar Pain management (3) Parkinson disease Continue home meds (4) Fall PT/OT (5) Depression Continue home meds (6) Nose fracture Patient does not have any nosebleed or dislocation of bones No indication for surgical intervention VS,Fishbone, I+O VS, Fishbone, I+O Laboratory Tests 06/18/20 05:29 Vital Signs Date Time Temp Pulse Resp B/P (MAP) Pulse Ox O2 Delivery O2 Flow Rate FiO2 06/18/20 09:33 77/44 (55) 06/18/20 06:00 98.0 64 20 96 06/17/20 13:15 Room Air l I&O- Last 24 Hours up to 6 AM 06/18/20 05:59 Intake Total 660 ml Output Total 250 ml Balance 410 ml CASSIE QUINTANA DO Jun 18, 2020 12:36
[2020-06-18] MEDS ORDERED: SODIUM CHLORIDE 0.9% 1000ML IV ONE (12:45)
[2020-06-18 14:00] VITALS: BP 112/72
[2020-06-18] MEDS: cloZAPine 25 MG TAB (S0136) PO SCH (21:14)
[2020-06-18] MEDS: cloZAPine 100 MG TAB (S0136) PO SCH (21:15)
[2020-06-18] MEDS: VENLAFAXINE **XR** 75MG CAPSULE PO SCH (21:15)
[2020-06-18 22:00] VITALS: BP 108/72
[2020-06-19] MEDS: SINEMET 25-100 MG TAB PO SCH ×5 (05:43→21:08)
[2020-06-19] MEDS: MIDODRINE 5 MG TAB PO SCH ×3 (05:43→18:11)
[2020-06-19 06:00] VITALS: BP 120/66
--- NOTE | 2020-06-19 07:05 | CR ---
DATE OF CONSULTATION: 06/17/2020 CHIEF COMPLAINT: C6 fracture. HISTORY OF PRESENT ILLNESS: A 70-year-old female had a fall. She was going to the washroom, and she tripped and fell forward at home. She had a nasal fracture. She was found to have a C6 fracture. She was placed in a collar and admitted to the hospital under the hospitalist service. MEDICAL HISTORY: Per the hospitalist, which includes: 1. Parkinson's. 2. Depression and anxiety. 3. Vitamin B12 deficiency. 4. Gastroesophageal reflux disease (GERD). SURGICAL HISTORY: 1. Back surgery. 2. Hip surgery on the left. Total replacement. 3. Knee surgery. MEDICATIONS: Tylenol, aspirin, carbidopa/levodopa, carboxymethyl cellulose, clozapine, docusate, fludrocortisone, midodrine, multivitamin, omeprazole, potassium chloride, rivastigmine, triamcinolone, venlafaxine. ALLERGIES: TRAMADOL. SOCIAL HISTORY: Denies smoking, drugs, or alcohol. PHYSICAL EXAMINATION: This is a well-appearing 70-year-old female. Vital signs are stable. She complains of a little bit of neck soreness but no obvious midline tenderness, steps, or gaps in the cervical spine. Cervical collar is left in place. Normal sensation in the upper extremities, C5-T1 2/2 and normal strength, C1-T1 5/5. No evidence of hyperreflexia. Hands and warm and well perfused. Strong radial pulse. Cervical spine CT was reviewed by myself as well as the radiologist. I concur with their report. C6 fracture involving the bilateral lamina at the base of the spinous process and extending anteriorly and laterally to involve the right anterior C6 facet. Facet joints remain well aligned. Partial fusion, bilateral C5 and C6 facets. ASSESSMENT AND PLAN: This 70-year-old female has a C6 fracture. It appears stable on radiographs with minimal pain. I reviewed the case with Dr. Mckeon, and he reviewed the imaging as well. It was recommended to be nonoperative with her cervical collar, and I agree with the assessment and plan. We will obtain a [place] collar for Ms. Salinas. She can be activity as tolerated and diet as tolerated. It is recommended to followup with Dr. Mckeon in 3-4 days' time with repeat radiographs to ensure stability of the fracture and no displacement. She should be placed on fall precautions, and from an orthopedic standpoint she could be discharged home with outpatient followup and pain control after she obtains her collar. VICTOR HUGO
[2020-06-19] MEDS: ASPIRIN 81 MG ENTERIC TAB PO SCH (08:41)
[2020-06-19] MEDS: OMEPRAZOLE 20 MG CAP PO SCH (08:41)
[2020-06-19] MEDS: DOCUSATE SODIUM 100 MG CAP PO SCH (08:41)
[2020-06-19] MEDS: POTASSIUM CHLORIDE 10 MEQ SR TABLET PO SCH (08:41)
[2020-06-19] MEDS: FLUDROCORTISONE ACETATE 0.1 MG TAB PO SCH ×2 (08:41→21:08)
[2020-06-19] MEDS: TRIAMCINOLONE ACET 0.1% CREAM 80 GM TOP SCH ×2 (08:42→21:14)
[2020-06-19] MEDS: HEPARIN SOD (PORCINE) 5000UNITS/ML 1ML VIAL/SYRINGE SC SCH ×2 (08:42→21:09)
[2020-06-19 14:00] VITALS: BP 108/71
--- NOTE | 2020-06-19 16:34 | IPNPDOC ---
Text Note Date of Service The patient was seen on 06/19/20. NOTE Subjective: No any acute events overnight. Patient denies fever, chills, nausea, vomiting, diarrhea or dysuria Objective: GENERAL APPEARANCE: NAD HEENT: no scleral icterus, no JVD, EOMI, C-collar, small hematoma over nasal bones CARDIOVASCULAR: S1S2 LUNGS: CTA ABDOMEN: soft & not tender w palpitation MUSCULOSKELETAL: no cyanosis, no swelling INTEGUMENT: no generalized palor NEUROLOGICAL: cranial nerve function from 2-12 intact intact, follows commands, speech not dysarthric Assessment/Plan Patient 69 years old female with past medical history of Parkinson's disease, GERD, depression who presented to ER after mechanical fall. In the morning patient developed mechanical fall due to slippery, she stated that she didn't loss of consciousness. In ER patient was found to have positive orthostatic vital signs, imaging studies showed Nasal bone fractures, C6 fracture involving the bilateral lamina at base of spinous process and extending anteriorly and laterally to involve the right inferior C6 facet. Orthopedic team was contacted, recommended C-collar Problems (1) Orthostatic hypotension Secondary to advanced Parkinson's diseases Continue midodrine, fludrocortisone PT/OT recommended rehabilitation (2) C6 cervical fracture orthopedic surgeon consult recommended conservative treatment c -collar Pain management (3) Parkinson disease Continue home meds (4) Fall PT/OT (5) Depression Continue home meds (6) Nose fracture Patient does not have any nosebleed or dislocation of bones No indication for surgical intervention patient was transferred to ALC status. Await ARU placement VS,Fishbone, I+O VS, Fishbone, I+O Vital Signs Date Time Temp Pulse Resp B/P (MAP) Pulse Ox O2 Delivery O2 Flow Rate FiO2 06/19/20 14:00 96.8 83 18 108/71 (83) 96 Room Air I&O- Last 24 Hours up to 6 AM 06/19/20 06:00 Intake Total 1895 ml Output Total 350 ml Balance 1545 ml CASSIE QUINTANA DO Jun 19, 2020 16:34
[2020-06-19] MEDS: cloZAPine 100 MG TAB (S0136) PO SCH (21:08)
[2020-06-19] MEDS: VENLAFAXINE **XR** 75MG CAPSULE PO SCH (21:08)
[2020-06-19] MEDS: cloZAPine 25 MG TAB (S0136) PO SCH (21:09)
[2020-06-20] MEDS: MIDODRINE 5 MG TAB PO SCH ×3 (05:48→17:24)
[2020-06-20] MEDS: SINEMET 25-100 MG TAB PO SCH ×5 (05:48→22:02)
[2020-06-20 06:00] VITALS: BP 109/69
[2020-06-20] MEDS: DOCUSATE SODIUM 100 MG CAP PO SCH (09:29)
[2020-06-20] MEDS: OMEPRAZOLE 20 MG CAP PO SCH (09:29)
[2020-06-20] MEDS: ASPIRIN 81 MG ENTERIC TAB PO SCH (09:29)
[2020-06-20] MEDS: FLUDROCORTISONE ACETATE 0.1 MG TAB PO SCH ×2 (09:29→20:34)
[2020-06-20] MEDS: POTASSIUM CHLORIDE 10 MEQ SR TABLET PO SCH (09:30)
[2020-06-20] MEDS: HEPARIN SOD (PORCINE) 5000UNITS/ML 1ML VIAL/SYRINGE SC SCH ×2 (09:31→20:33)
[2020-06-20] MEDS: TRIAMCINOLONE ACET 0.1% CREAM 80 GM TOP SCH ×2 (09:37→20:33)
[2020-06-20 12:19] VITALS: BP 94/46
[2020-06-20 17:29] VITALS: BP 117/71
[2020-06-20] MEDS: VENLAFAXINE **XR** 75MG CAPSULE PO SCH (20:34)
[2020-06-20] MEDS: cloZAPine 100 MG TAB (S0136) PO SCH (20:34)
[2020-06-20] MEDS: cloZAPine 25 MG TAB (S0136) PO SCH (20:34)
[2020-06-21] MEDS: SINEMET 25-100 MG TAB PO SCH ×5 (05:57→22:09)
[2020-06-21] MEDS: MIDODRINE 5 MG TAB PO SCH ×3 (05:58→17:55)
[2020-06-21 06:00] VITALS: BP 105/66
[2020-06-21] MEDS: HEPARIN SOD (PORCINE) 5000UNITS/ML 1ML VIAL/SYRINGE SC SCH ×2 (08:33→20:34)
[2020-06-21] MEDS: OMEPRAZOLE 20 MG CAP PO SCH (08:33)
[2020-06-21] MEDS: ASPIRIN 81 MG ENTERIC TAB PO SCH (08:34)
[2020-06-21] MEDS: DOCUSATE SODIUM 100 MG CAP PO SCH (08:34)
[2020-06-21] MEDS: MOM 30ML SUSPENSION UDC PO PRN (08:34)
[2020-06-21] MEDS: POTASSIUM CHLORIDE 10 MEQ SR TABLET PO SCH (08:34)
[2020-06-21] MEDS: FLUDROCORTISONE ACETATE 0.1 MG TAB PO SCH ×2 (08:40→20:34)
[2020-06-21] MEDS: TRIAMCINOLONE ACET 0.1% CREAM 80 GM TOP SCH ×2 (08:44→20:33)
[2020-06-21 11:57] VITALS: BP 115/73
[2020-06-21 17:54] VITALS: BP 118/74
[2020-06-21] MEDS: VENLAFAXINE **XR** 75MG CAPSULE PO SCH (20:34)
[2020-06-21] MEDS: cloZAPine 100 MG TAB (S0136) PO SCH (20:34)
[2020-06-21] MEDS: cloZAPine 25 MG TAB (S0136) PO SCH (20:34)
[2020-06-22] MEDS: SINEMET 25-100 MG TAB PO SCH ×5 (05:47→22:03)
[2020-06-22] MEDS: MIDODRINE 5 MG TAB PO SCH ×3 (05:47→17:03)
[2020-06-22 06:00] VITALS: BP 123/75
[2020-06-22] MEDS: POTASSIUM CHLORIDE 10 MEQ SR TABLET PO SCH (09:05)
[2020-06-22] MEDS: DOCUSATE SODIUM 100 MG CAP PO SCH (09:05)
[2020-06-22] MEDS: FLUDROCORTISONE ACETATE 0.1 MG TAB PO SCH ×2 (09:05→20:11)
[2020-06-22] MEDS: ASPIRIN 81 MG ENTERIC TAB PO SCH (09:05)
[2020-06-22] MEDS: OMEPRAZOLE 20 MG CAP PO SCH (09:05)
[2020-06-22] MEDS: MOM 30ML SUSPENSION UDC PO PRN (09:06)
[2020-06-22] MEDS: HEPARIN SOD (PORCINE) 5000UNITS/ML 1ML VIAL/SYRINGE SC SCH ×2 (09:06→20:08)
[2020-06-22] MEDS: TRIAMCINOLONE ACET 0.1% CREAM 80 GM TOP SCH ×2 (09:10→20:14)
[2020-06-22] MEDS: VENLAFAXINE **XR** 75MG CAPSULE PO SCH (20:09)
[2020-06-22] MEDS: cloZAPine 100 MG TAB (S0136) PO SCH (20:11)
[2020-06-22] MEDS: cloZAPine 25 MG TAB (S0136) PO SCH (20:18)
[2020-06-23] MEDS: MIDODRINE 5 MG TAB PO SCH ×3 (05:36→17:08)
[2020-06-23] MEDS: SINEMET 25-100 MG TAB PO SCH ×5 (05:36→21:41)
[2020-06-23 06:00] VITALS: BP 145/82
[2020-06-23] MEDS: TRIAMCINOLONE ACET 0.1% CREAM 80 GM TOP SCH ×2 (09:00→21:40)
[2020-06-23] MEDS: HEPARIN SOD (PORCINE) 5000UNITS/ML 1ML VIAL/SYRINGE SC SCH ×2 (09:36→21:40)
[2020-06-23] MEDS: ASPIRIN 81 MG ENTERIC TAB PO SCH (09:36)
[2020-06-23] MEDS: DOCUSATE SODIUM 100 MG CAP PO SCH (09:36)
[2020-06-23] MEDS: OMEPRAZOLE 20 MG CAP PO SCH (09:37)
[2020-06-23] MEDS: FLUDROCORTISONE ACETATE 0.1 MG TAB PO SCH ×2 (09:37→21:00)
[2020-06-23] MEDS: POTASSIUM CHLORIDE 10 MEQ SR TABLET PO SCH (09:37)
[2020-06-23] MEDS: cloZAPine 100 MG TAB (S0136) PO SCH (21:40)
[2020-06-23] MEDS: VENLAFAXINE **XR** 75MG CAPSULE PO SCH (21:40)
[2020-06-23] MEDS: cloZAPine 25 MG TAB (S0136) PO SCH (21:40)
[2020-06-24] MEDS: SINEMET 25-100 MG TAB PO SCH ×2 (05:07→09:28)
[2020-06-24] MEDS: MIDODRINE 5 MG TAB PO SCH (05:07)
[2020-06-24 06:00] VITALS: BP 140/90
[2020-06-24] MEDS: ASPIRIN 81 MG ENTERIC TAB PO SCH (09:27)
[2020-06-24] MEDS: HEPARIN SOD (PORCINE) 5000UNITS/ML 1ML VIAL/SYRINGE SC SCH (09:27)
[2020-06-24] MEDS: FLUDROCORTISONE ACETATE 0.1 MG TAB PO SCH (09:28)
[2020-06-24] MEDS: OMEPRAZOLE 20 MG CAP PO SCH (09:28)
[2020-06-24] MEDS: DOCUSATE SODIUM 100 MG CAP PO SCH (09:28)
[2020-06-24] MEDS: POTASSIUM CHLORIDE 10 MEQ SR TABLET PO SCH (09:28)
[2020-06-24] MEDS: TRIAMCINOLONE ACET 0.1% CREAM 80 GM TOP SCH (09:31)
[2020-06-24] MEDS ORDERED: FLUD0.1T PO (10:26)
[2020-06-24] MEDS ORDERED: RIVA1CAP3 PO (11:31)
--- NOTE | 2020-06-25 07:47 | DS.PDOC ---
Discharge Summary General Date of Admission Jun 17, 2020 at 12:02 Date of Discharge 06/24/20 Discharge Summary PROCEDURES PERFORMED DURING STAY: [None]. DISCHARGE DIAGNOSES: #Orthostatic hypotension #C6 cervical fracture #Parkinson disease # Fall # Depression #Nose fracture COMPLICATIONS/CHIEF COMPLAINT: FALL. HISTORY OF PRESENT ILLNESS: 69 years old female with past medical history of Par kinson's disease, GERD, depression who presented to ER after mechanical fall, she stated that she didn't lose consciousness. In ER patient was found to have positive orthostatic vital signs, imaging studies showed Nasal bone fractures, C6 fracture involving the bilateral lamina at base of spinous process and extending anteriorly and laterally to involve the right inferior C6 facet. Orthopedic team was contacted, and hospitalist for admission. HOSPITAL COURSE: Patient seen by orthopedist, recommendations for c-collar and outpatient follow-up. Hospital stay was otherwise unremarkable. Her orthostasis was deemed secondary to her advanced Parkinson's disease. Patient ultimately was discharged to [facility] for rehabilitation. (1) Orthostatic hypotension Secondary to advanced Parkinson's diseases Continue midodrine, fludrocortisone PT/OT recommended rehabilitation (2) C6 cervical fracture orthopedic surgeon consult recommended conservative treatment c -collar Pain management (3) Parkinson disease Continue home meds (4) Fall PT/OT (5) Depression Continue home meds (6) Nose fracture Patient does not have any nosebleed or dislocation of bones DISCHARGE MEDICATIONS: Please see below. ALLERGIES: Please see below. PHYSICAL EXAMINATION ON DISCHARGE: VITAL SIGNS: Please see below. GENERAL: NAD, sitting comfortably in chair Lungs: CTA B/L Heart: +S2S1, RRR Abd: soft, NT, +BS Ext: no edema LABORATORY DATA: Please see below. DISPOSITION: [facility]. DISCHARGE INSTRUCTIONS: 1. Follow up PCP in 3-5 days 2. Follow up orthopedics as directed. DISCHARGE CONDITION: [Stable]. TIME SPENT ON DISCHARGE: 35 minutes. Vital Signs/I&Os Vital Signs Date Time Temp Pulse Resp B/P (MAP) Pulse Ox O2 Delivery O2 Flow Rate FiO2 06/24/20 06:00 97.2 87 19 140/90 (107) 90 Room Air I&O- Last 24 Hours up to 6 AM 06/25/20 06:00 Intake Total 150 ml Output Total 225 ml Balance -75 ml Discharge Medications Scheduled Aspirin (Aspirin EC) 81 Mg Tablet.dr, 81 MG PO DAILY, (Reported) Carbidopa/Levodopa (Carbidopa-Levodopa 25-100 Tab) 1 Tab Tab, 2 TAB PO 5XD, (Reported) TAKES AT 0600, 1000, 1400, 1800, 2200 Carboxymethylcellulose Sodium (Refresh Tears) 15 Ml Drops, 1 DROP OU QID, (Reported) Clozapine (Clozapine) 100 Mg Tab, 100 MG PO QHS, (Reported) 125MG TOTAL QHS Clozapine (Clozapine) 25 Mg Tab, 25 MG PO QHS, (Reported) 125MG TOTAL QHS Docusate Sodium (Colace) 100 Mg Cap, 100 MG PO DAILY, (Reported) Fludrocortisone Acetate (Fludrocortisone Acetate) 0.1 Mg Tablet, 0.1 MG PO BID Midodrine HCl (Midodrine HCl) 5 Mg Tablet, 5 MG PO TID, (Reported) 0600, 1400, 2100 Multivitamin (Tab-A-Joaquín) 1 Each Tablet, 1 TAB PO DAILY, (Reported) Omeprazole (Omeprazole) 40 Mg Cap, 40 MG PO DAILY, (Reported) Potassium Chloride (Potassium Chloride) 20 Meq Tab.er.prt, 20 MEQ PO DAILY, (Reported) Rivastigmine Tartrate (Rivastigmine) 3 Mg Capsule, 1 CAP PO BID Triamcinolone Acet (Triamcinolone Acetonide 0.1% Crm) 80 Gm Cream..g., 1 DOSE TOP BID, (Reported) APPLY TO RIGHT LOWER EXTREMITY - PATIENT KEEPS AT BEDSIDE Venlafaxine HCl (Effexor Xr) 75 Mg Cap, 75 MG PO QHS, (Reported) Scheduled PRN Acetaminophen (Acetaminophen) 325 Mg Tablet, 650 MG PO Q4H PRN for PAIN, (Reported) Magnesium Hydroxide (Milk of Magnesia) 400 Mg/5 Ml Oral.susp, 10 ML PO DAILY PRN for CONSTIPATION, (Reported) Allergies Coded Allergies: tramadol (Verified Adverse Reaction, Intermediate, hallucinations, 02/11/20) ELIZABETH DONAHUE MD Jun 25, 2020 07:47
== END 2020-06-24 11:59 | DRG 552 ==
LOC: M ED 08:33 → EDBD 08:33 → M ED INP 12:02 → ENRESERV 12:20 → M MSPAV 13:20
PROVIDERS: ADMIT Internal Medicine; ATTEND Internal Medicine
DX: S12.501A Unspecified nondisplaced fracture of sixth cervical vertebra, initial encounter for closed fracture (principal); I95.1 Orthostatic hypotension; S02.2XXA Fracture of nasal bones, initial encounter for closed fracture; G35 Multiple sclerosis; F32.9 Major depressive disorder, single episode, unspecified; K21.9 Gastro-esophageal reflux disease without esophagitis; W18.30XA Fall on same level, unspecified, initial encounter; Y92.009 Unspecified place in unspecified non-institutional (private) residence as the place of occurrence of the external cause; Z79.899 Other long term (current) drug therapy; Z88.8 Allergy status to other drugs, medicaments and biological substances; E53.8 Deficiency of other specified B group vitamins; Z96.642 Presence of left artificial hip joint

== ENCOUNTER → 2020-06-26 | Outpatient (REF) ==
[~2020-06-26] MED LIST changes: +ASPI-161 PO; +FLUD0.1T PO; +MIDO5TA PO; +POTA20TA6 PO; +REFR0.5D8 OU
[2020-06-26 12:16] LABS: BASO % 0.5 % (0.0-1.0); EOS # 0.2 10^3/uL (0.0-0.5); EOS % 2.7 % (0.0-3.0); HEMATOCRIT 29.9 % (36.0-47.0); HEMOGLOBIN 9.5 g/dl (12.0-15.5); LYMPH # 0.6 10^3/uL (1.5-5.0); LYMPH % 10.5 % (24.0-44.0); MEAN CORPUSCULAR HEMOGLOBIN 31.9 pg (27.0-33.0); MEAN CORPUSCULAR HGB CONC 31.8 g/dl (32.0-36.5); MEAN CORPUSCULAR VOLUME 100.3 fl (80.0-96.0); MONO # 0.5 10^3/uL (0.0-0.8); MONO % 9.8 % (0.0-5.0); NEUTROPHILS # 4.2 10^3/uL (1.5-8.5); NEUTROPHILS % 76.3 % (36.0-66.0); PLATELET COUNT, AUTOMATED 214 10^3/uL (150-450); RED BLOOD COUNT 2.98 10^6/uL (4.00-5.40); WHITE BLOOD COUNT 5.5 10^3/uL (4.0-10.0)
== END ==
PROVIDERS: ATTEND Internal Medicine
DX: F32.9 Major depressive disorder, single episode, unspecified (principal)

== ENCOUNTER → 2020-07-08 | Outpatient (REF) ==
[2020-07-08 10:07] LABS: HEMATOCRIT 31.4 % (36.0-47.0); HEMOGLOBIN 9.7 g/dl (12.0-15.5); MEAN CORPUSCULAR HEMOGLOBIN 31.7 pg (27.0-33.0); MEAN CORPUSCULAR HGB CONC 30.9 g/dl (32.0-36.5); MEAN CORPUSCULAR VOLUME 102.6 fl (80.0-96.0); PLATELET COUNT, AUTOMATED 229 10^3/uL (150-450); RED BLOOD COUNT 3.06 10^6/uL (4.00-5.40); WHITE BLOOD COUNT 5.8 10^3/uL (4.0-10.0)
[2020-07-08 10:26] LABS: CALCIUM LEVEL 8.2 MG/DL (8.8-10.2); CREATININE FOR GFR 1.25 MG/DL (0.55-1.30); GLOMERULAR FILTRATION RATE 44.8 (>39); POTASSIUM SERUM 3.3 MEQ/L (3.5-5.1)
== END ==
PROVIDERS: ATTEND Physician Assistant
DX: G20 Parkinson's disease (principal)

== ENCOUNTER → 2020-07-09 | Outpatient (REF) ==
[2020-07-09 15:39] LABS: HEMATOCRIT 31.5 % (36.0-47.0); HEMOGLOBIN 9.8 g/dl (12.0-15.5); MEAN CORPUSCULAR HEMOGLOBIN 31.8 pg (27.0-33.0); MEAN CORPUSCULAR HGB CONC 31.1 g/dl (32.0-36.5); MEAN CORPUSCULAR VOLUME 102.3 fl (80.0-96.0); PLATELET COUNT, AUTOMATED 244 10^3/uL (150-450); RED BLOOD COUNT 3.08 10^6/uL (4.00-5.40); WHITE BLOOD COUNT 4.9 10^3/uL (4.0-10.0)
[2020-07-09 15:55] LABS: CALCIUM LEVEL 8.7 MG/DL (8.8-10.2); CREATININE FOR GFR 1.12 MG/DL (0.55-1.30); GLOMERULAR FILTRATION RATE 50.9 (>39); POTASSIUM SERUM 3.8 MEQ/L (3.5-5.1)
== END ==
PROVIDERS: ATTEND Internal Medicine
DX: R41.0 Disorientation, unspecified (principal)

== ENCOUNTER → 2020-07-10 | Outpatient (REF) ==
[2020-07-10 10:58] LABS: CALCIUM LEVEL 8.9 MG/DL (8.8-10.2); CREATININE FOR GFR 1.11 MG/DL (0.55-1.30); GLOMERULAR FILTRATION RATE 51.4 (>39); POTASSIUM SERUM 3.7 MEQ/L (3.5-5.1)
== END ==
PROVIDERS: ATTEND Internal Medicine
DX: E86.0 Dehydration (principal)

== ENCOUNTER → 2020-07-15 | Outpatient (REF) | payer BC, MEDICAID, MEDICARE ==
[2020-07-15 10:23] LABS: BLOOD UREA NITROGEN 11 MG/DL (7-18); CARBON DIOXIDE LEVEL 31 MEQ/L (21-32); CHLORIDE LEVEL 108 MEQ/L (98-107); GLOMERULAR FILTRATION RATE > 60.0 (>39); GLUCOSE, FASTING 82 MG/DL (70-100); POTASSIUM SERUM 3.4 MEQ/L (3.5-5.1); SODIUM LEVEL 146 MEQ/L (136-145)
== END ==
PROVIDERS: ATTEND Internal Medicine
DX: E87.6 Hypokalemia (principal)

== ENCOUNTER → 2020-07-23 | Outpatient (REF) | PROVIDERS: ATTEND Internal Medicine | DX: Z20.828 Contact with and (suspected) exposure to other viral communicable diseases (principal) ==

== ENCOUNTER → 2020-07-30 | Outpatient (REF) ==
[~2020-07-30] MED LIST changes: -QUET1TAB7 PO; +QUET25TA3 PO
== END ==
LOC: EDSTATUS 08-25 07:57
PROVIDERS: ATTEND Internal Medicine
DX: Z20.828 Contact with and (suspected) exposure to other viral communicable diseases (principal)

== ENCOUNTER → 2020-08-03 | Outpatient (REF) | payer MEDICARE, MEDICAID, BC ==
[~2020-08-03] MED LIST changes: +QUET1TAB7 PO; -QUET25TA3 PO
[2020-08-03 15:41] LABS: HEMATOCRIT 36.6 % (36.0-47.0); HEMOGLOBIN 11.2 g/dl (12.0-15.5); MEAN CORPUSCULAR HEMOGLOBIN 30.9 pg (27.0-33.0); MEAN CORPUSCULAR HGB CONC 30.6 g/dl (32.0-36.5); MEAN CORPUSCULAR VOLUME 101.1 fl (80.0-96.0); PLATELET COUNT, AUTOMATED 236 10^3/uL (150-450); RED BLOOD COUNT 3.62 10^6/uL (4.00-5.40)
[2020-08-03 16:22] LABS: BLOOD UREA NITROGEN 17 MG/DL (7-18); CALCIUM LEVEL 9.3 MG/DL (8.8-10.2); CARBON DIOXIDE LEVEL 32 MEQ/L (21-32); CHLORIDE LEVEL 108 MEQ/L (98-107); CREATININE FOR GFR 0.96 MG/DL (0.55-1.30); GLOMERULAR FILTRATION RATE > 60.0 (>39); GLUCOSE, FASTING 62 MG/DL (70-100); SODIUM LEVEL 146 MEQ/L (136-145); THYROID STIMULATING HORMONE 0.433 uIU/ML (0.358-3.740)
== END ==
PROVIDERS: ATTEND Internal Medicine
DX: R26.9 Unspecified abnormalities of gait and mobility (principal)

== ENCOUNTER → 2020-08-05 | Outpatient (REF) ==
[~2020-08-05] MED LIST changes: -QUET1TAB7 PO; +QUET25TA3 PO
== END ==
PROVIDERS: ATTEND Internal Medicine
DX: Z20.828 Contact with and (suspected) exposure to other viral communicable diseases (principal)

== ENCOUNTER → 2020-08-18 | Outpatient (REF) | payer MEDICARE, MEDICAID, BC ==
[~2020-08-18] MED LIST changes: +QUET1TAB7 PO; -QUET25TA3 PO
[2020-08-18 11:20] LABS: BASO % 0.4 % (0.0-1.0); EOS # 0.2 10^3/uL (0.0-0.5); EOS % 2.4 % (0.0-3.0); HEMATOCRIT 33.5 % (36.0-47.0); HEMOGLOBIN 10.5 g/dl (12.0-15.5); LYMPH # 0.3 10^3/uL (1.5-5.0); LYMPH % 4.3 % (24.0-44.0); MEAN CORPUSCULAR HEMOGLOBIN 31.7 pg (27.0-33.0); MEAN CORPUSCULAR HGB CONC 31.3 g/dl (32.0-36.5); MEAN CORPUSCULAR VOLUME 101.2 fl (80.0-96.0); MONO # 0.5 10^3/uL (0.0-0.8); MONO % 5.7 % (0.0-5.0); NEUTROPHILS # 6.8 10^3/uL (1.5-8.5); NEUTROPHILS % 86.8 % (36.0-66.0); PLATELET COUNT, AUTOMATED 207 10^3/uL (150-450); RED BLOOD COUNT 3.31 10^6/uL (4.00-5.40); WHITE BLOOD COUNT 7.9 10^3/uL (4.0-10.0)
== END ==
PROVIDERS: ATTEND Internal Medicine
DX: G20 Parkinson's disease (principal); F22 Delusional disorders

== ENCOUNTER → 2020-08-23 | Outpatient (REF) | payer MEDICARE, MEDICAID, BC | PROVIDERS: ATTEND Internal Medicine | DX: Z20.828 Contact with and (suspected) exposure to other viral communicable diseases (principal) ==

== ENCOUNTER → 2020-08-27 | Outpatient (REF) | payer MEDICARE, MEDICAID, BC | PROVIDERS: ATTEND Internal Medicine | DX: Z20.828 Contact with and (suspected) exposure to other viral communicable diseases (principal) ==

== ENCOUNTER → 2020-09-02 | Outpatient (CLI) | payer MEDICARE, MEDICAID ==
--- NOTE | 2020-09-02 14:00 | REP ---
INDICATION: PAIN, SWELLING RT LEG COMPARISON: None. TECHNIQUE: Castillo scale and color Doppler evaluation of the right lower extremity using linear high frequency transducer. FINDINGS: Ultrasound examination of the right lower extremity deep venous structures from the common femoral vein to the popliteal vein demonstrates normal compressibility flow and wave patterns in response to respiration and augmentation. There is no evidence for deep venous thrombosis. IMPRESSION: No evidence for deep venous thrombosis. <Electronically signed by James Ogden > 09/02/20 [id number]
== END ==
LOC: M RAD 13:34
PROVIDERS: ATTEND Physician Assistant
DX: R22.41 Localized swelling, mass and lump, right lower limb (principal); M79.661 Pain in right lower leg

== ENCOUNTER → 2020-09-02 | Outpatient (REF) | payer MEDICARE, MEDICAID, BC | PROVIDERS: ATTEND Internal Medicine | DX: Z20.828 Contact with and (suspected) exposure to other viral communicable diseases (principal) ==

== ENCOUNTER → 2020-09-08 | Outpatient (REF) | payer MEDICARE, MEDICAID | PROVIDERS: ATTEND Internal Medicine | DX: Z20.828 Contact with and (suspected) exposure to other viral communicable diseases (principal) ==

== ENCOUNTER → 2020-09-14 | Outpatient (REF) | payer MEDICARE, MEDICAID | PROVIDERS: ATTEND Internal Medicine | DX: Z20.828 Contact with and (suspected) exposure to other viral communicable diseases (principal) ==

== ENCOUNTER → 2020-09-18 | Outpatient (REF) | payer MEDICARE, MEDICAID | PROVIDERS: ATTEND Internal Medicine | DX: Z20.822 Contact with and (suspected) exposure to COVID-19 (principal) ==

== ENCOUNTER → 2020-09-23 | Outpatient (REF) | payer MEDICARE, MEDICAID | PROVIDERS: ATTEND Internal Medicine | DX: Z20.822 Contact with and (suspected) exposure to COVID-19 (principal) ==

== ENCOUNTER → 2020-09-23 | Outpatient (REF) | payer MEDICARE, MEDICAID ==
[2020-09-23 11:05] LABS: BASO % 0.4 % (0.0-1.0); EOS # 0.1 10^3/uL (0.0-0.5); EOS % 2.2 % (0.0-3.0); HEMATOCRIT 35.4 % (36.0-47.0); HEMOGLOBIN 11.1 g/dl (12.0-15.5); LYMPH # 0.6 10^3/uL (1.5-5.0); LYMPH % 11.3 % (24.0-44.0); MEAN CORPUSCULAR HEMOGLOBIN 30.9 pg (27.0-33.0); MEAN CORPUSCULAR HGB CONC 31.4 g/dl (32.0-36.5); MEAN CORPUSCULAR VOLUME 98.6 fl (80.0-96.0); MONO # 0.4 10^3/uL (0.0-0.8); MONO % 8.2 % (0.0-5.0); NEUTROPHILS # 4.2 10^3/uL (1.5-8.5); NEUTROPHILS % 77.7 % (36.0-66.0); PLATELET COUNT, AUTOMATED 216 10^3/uL (150-450); RED BLOOD COUNT 3.59 10^6/uL (4.00-5.40); WHITE BLOOD COUNT 5.4 10^3/uL (4.0-10.0)
== END ==
PROVIDERS: ATTEND Internal Medicine
DX: Z79.899 Other long term (current) drug therapy (principal)

== ENCOUNTER → 2020-09-30 | Outpatient (REF) | payer MEDICARE, MEDICAID | PROVIDERS: ATTEND Internal Medicine | DX: Z20.822 Contact with and (suspected) exposure to COVID-19 (principal) ==

== ENCOUNTER → 2020-10-07 | Outpatient (REF) | payer MEDICARE, MEDICAID | PROVIDERS: ATTEND Internal Medicine | DX: Z20.822 Contact with and (suspected) exposure to COVID-19 (principal) ==

== ENCOUNTER → 2020-10-14 | Outpatient (REF) | payer MEDICARE, MEDICAID | PROVIDERS: ATTEND Internal Medicine | DX: Z20.822 Contact with and (suspected) exposure to COVID-19 (principal) ==

== ENCOUNTER → 2020-10-21 | Outpatient (REF) | payer MEDICARE, MEDICAID ==
[~2020-10-21] MED LIST changes: -QUET1TAB7 PO; +QUET25TA3 PO
== END ==
PROVIDERS: ATTEND Internal Medicine
DX: Z20.822 Contact with and (suspected) exposure to COVID-19 (principal)

== ENCOUNTER → 2020-10-22 | Outpatient (REF) | payer MEDICARE, MEDICAID ==
[2020-10-22 13:19] LABS: BASO % 0.5 % (0.0-1.0); EOS # 0.1 10^3/uL (0.0-0.5); EOS % 2.5 % (0.0-3.0); HEMOGLOBIN 10.4 g/dl (12.0-15.5); LYMPH # 0.7 10^3/uL (1.5-5.0); MEAN CORPUSCULAR HEMOGLOBIN 30.6 pg (27.0-33.0); MEAN CORPUSCULAR HGB CONC 31.5 g/dl (32.0-36.5); MEAN CORPUSCULAR VOLUME 97.1 fl (80.0-96.0); MONO # 0.4 10^3/uL (0.0-0.8); MONO % 7.7 % (0.0-5.0); NEUTROPHILS # 4.3 10^3/uL (1.5-8.5); NEUTROPHILS % 77.1 % (36.0-66.0); PLATELET COUNT, AUTOMATED 233 10^3/uL (150-450); WHITE BLOOD COUNT 5.6 10^3/uL (4.0-10.0)
== END ==
PROVIDERS: ATTEND Internal Medicine
DX: Z79.899 Other long term (current) drug therapy (principal)

== ENCOUNTER → 2020-10-28 | Outpatient (REF) | payer MEDICARE, MEDICAID | PROVIDERS: ATTEND Internal Medicine | DX: Z20.822 Contact with and (suspected) exposure to COVID-19 (principal) ==

== ENCOUNTER → 2020-11-03 | Outpatient (REF) | payer MEDICARE, MEDICAID ==
[2020-11-03 17:19] LABS: HEMATOCRIT 35.4 % (36.0-47.0); HEMOGLOBIN 10.9 g/dl (12.0-15.5); MEAN CORPUSCULAR HEMOGLOBIN 30.4 pg (27.0-33.0); MEAN CORPUSCULAR HGB CONC 30.8 g/dl (32.0-36.5); MEAN CORPUSCULAR VOLUME 98.6 fl (80.0-96.0); PLATELET COUNT, AUTOMATED 233 10^3/uL (150-450); RED BLOOD COUNT 3.59 10^6/uL (4.00-5.40); WHITE BLOOD COUNT 5.2 10^3/uL (4.0-10.0)
[2020-11-03 17:49] LABS: BLOOD UREA NITROGEN 20 MG/DL (7-18); CALCIUM LEVEL 8.7 MG/DL (8.8-10.2); CARBON DIOXIDE LEVEL 32 MEQ/L (21-32); CHLORIDE LEVEL 107 MEQ/L (98-107); CREATININE FOR GFR 0.93 MG/DL (0.55-1.30); GLOMERULAR FILTRATION RATE > 60.0 (>39); GLUCOSE, FASTING 112 MG/DL (70-100); POTASSIUM SERUM 3.9 MEQ/L (3.5-5.1); SODIUM LEVEL 146 MEQ/L (136-145); THYROID STIMULATING HORMONE 0.373 uIU/ML (0.358-3.740); THYROXINE (T4) 8.5 UG/DL (4.5-12.0)
== END ==
PROVIDERS: ATTEND Internal Medicine
DX: R53.1 Weakness (principal)

== ENCOUNTER → 2020-11-04 | Outpatient (REF) | payer MEDICARE, MEDICAID | PROVIDERS: ATTEND Internal Medicine | DX: Z20.822 Contact with and (suspected) exposure to COVID-19 (principal) ==

== ENCOUNTER → 2020-11-10 | Outpatient (REF) | payer MEDICARE, MEDICAID ==
[2020-11-10 11:16] LABS: BASO % 0.3 % (0.0-1.0); EOS # 0.2 10^3/uL (0.0-0.5); EOS % 3.2 % (0.0-3.0); HEMATOCRIT 34.4 % (36.0-47.0); HEMOGLOBIN 10.9 g/dl (12.0-15.5); LYMPH # 0.6 10^3/uL (1.5-5.0); LYMPH % 9.6 % (24.0-44.0); MEAN CORPUSCULAR HGB CONC 31.7 g/dl (32.0-36.5); MEAN CORPUSCULAR VOLUME 97.7 fl (80.0-96.0); MONO # 0.5 10^3/uL (0.0-0.8); MONO % 7.8 % (2.0-8.0); NEUTROPHILS # 4.9 10^3/uL (1.5-8.5); NEUTROPHILS % 78.8 % (36.0-66.0); PLATELET COUNT, AUTOMATED 214 10^3/uL (150-450); RED BLOOD COUNT 3.52 10^6/uL (4.00-5.40); WHITE BLOOD COUNT 6.3 10^3/uL (4.0-10.0)
== END ==
PROVIDERS: ATTEND Internal Medicine
DX: Z51.81 Encounter for therapeutic drug level monitoring (principal); Z79.899 Other long term (current) drug therapy

== ENCOUNTER → 2020-11-11 | Outpatient (REF) | payer MEDICARE, MEDICAID | PROVIDERS: ATTEND Internal Medicine | DX: Z20.822 Contact with and (suspected) exposure to COVID-19 (principal) ==

== ENCOUNTER → 2020-11-18 | Outpatient (REF) | payer MEDICARE, MEDICAID | PROVIDERS: ATTEND Internal Medicine | DX: Z11.52 Encounter for screening for COVID-19 (principal) ==

== ENCOUNTER → 2020-11-25 | Outpatient (REF) | payer MEDICARE, MEDICAID ==
[2020-11-25 10:17] LABS: BASO % 0.6 % (0.0-1.0); EOS # 0.2 10^3/uL (0.0-0.5); EOS % 3.4 % (0.0-3.0); HEMATOCRIT 32.8 % (36.0-47.0); HEMOGLOBIN 10.6 g/dl (12.0-15.5); LYMPH # 0.5 10^3/uL (1.5-5.0); LYMPH % 10.5 % (24.0-44.0); MEAN CORPUSCULAR HEMOGLOBIN 31.8 pg (27.0-33.0); MEAN CORPUSCULAR HGB CONC 32.3 g/dl (32.0-36.5); MEAN CORPUSCULAR VOLUME 98.5 fl (80.0-96.0); MONO # 0.4 10^3/uL (0.0-0.8); MONO % 8.1 % (2.0-8.0); NEUTROPHILS # 3.8 10^3/uL (1.5-8.5); NEUTROPHILS % 77.2 % (36.0-66.0); PLATELET COUNT, AUTOMATED 224 10^3/uL (150-450); RED BLOOD COUNT 3.33 10^6/uL (4.00-5.40); WHITE BLOOD COUNT 4.9 10^3/uL (4.0-10.0)
== END ==
PROVIDERS: ATTEND Internal Medicine
DX: G20 Parkinson's disease (principal)

== ENCOUNTER → 2020-12-08 | Outpatient (REF) | payer MEDICARE, MEDICAID ==
[2020-12-08 10:18] LABS: BASO % 0.5 % (0.0-1.0); EOS # 0.2 10^3/uL (0.0-0.5); EOS % 2.4 % (0.0-3.0); HEMATOCRIT 34.5 % (36.0-47.0); HEMOGLOBIN 10.9 g/dl (12.0-15.5); LYMPH # 0.7 10^3/uL (1.5-5.0); LYMPH % 10.3 % (24.0-44.0); MEAN CORPUSCULAR HEMOGLOBIN 31.3 pg (27.0-33.0); MEAN CORPUSCULAR HGB CONC 31.6 g/dl (32.0-36.5); MEAN CORPUSCULAR VOLUME 99.1 fl (80.0-96.0); MONO # 0.4 10^3/uL (0.0-0.8); MONO % 5.9 % (2.0-8.0); NEUTROPHILS # 5.3 10^3/uL (1.5-8.5); NEUTROPHILS % 80.6 % (36.0-66.0); PLATELET COUNT, AUTOMATED 221 10^3/uL (150-450); RED BLOOD COUNT 3.48 10^6/uL (4.00-5.40); WHITE BLOOD COUNT 6.6 10^3/uL (4.0-10.0)
== END ==
PROVIDERS: ATTEND Internal Medicine
DX: Z51.81 Encounter for therapeutic drug level monitoring (principal); Z79.899 Other long term (current) drug therapy

== ENCOUNTER → 2020-12-11 | Outpatient (REF) | payer MEDICARE, MEDICAID ==
[2020-12-11 21:46] LABS: INFLUENZA A AMPLIFICATION NEGATIVE (NEGATIVE); INFLUENZA B AMPLIFICATION NEGATIVE (NEGATIVE)
== END ==
PROVIDERS: ATTEND Internal Medicine
DX: Z11.59 Encounter for screening for other viral diseases (principal)

== ENCOUNTER → 2020-12-22 | Outpatient (REF) | payer MEDICARE, MEDICAID ==
[~2020-12-22] MED LIST changes: +LOPE-27 PO; -[UNRECOGNIZED DRUG - CODE] PO
== END ==
PROVIDERS: ATTEND Internal Medicine
DX: Z20.822 Contact with and (suspected) exposure to COVID-19 (principal)

== ENCOUNTER → 2020-12-29 | Outpatient (REF) | payer MEDICARE, MEDICAID ==
[2020-12-29 11:58] LABS: BASO % 0.3 % (0.0-1.0); EOS # 0.1 10^3/uL (0.0-0.5); HEMATOCRIT 31.7 % (36.0-47.0); LYMPH # 0.5 10^3/uL (1.5-5.0); LYMPH % 7.9 % (24.0-44.0); MEAN CORPUSCULAR HEMOGLOBIN 31.3 pg (27.0-33.0); MEAN CORPUSCULAR HGB CONC 31.5 g/dl (32.0-36.5); MEAN CORPUSCULAR VOLUME 99.1 fl (80.0-96.0); MONO # 0.4 10^3/uL (0.0-0.8); MONO % 6.4 % (2.0-8.0); NEUTROPHILS # 5.5 10^3/uL (1.5-8.5); NEUTROPHILS % 82.9 % (36.0-66.0); PLATELET COUNT, AUTOMATED 200 10^3/uL (150-450); WHITE BLOOD COUNT 6.6 10^3/uL (4.0-10.0)
== END ==
PROVIDERS: ATTEND Internal Medicine
DX: Z79.899 Other long term (current) drug therapy (principal); Z20.822 Contact with and (suspected) exposure to COVID-19
CPT/HCPCS: 36415; 85025; U0003

== ENCOUNTER → 2021-01-05 | Outpatient (REF) | payer MEDICARE, MEDICAID ==
[2021-01-05 11:13] LABS: BASO % 0.4 % (0.0-1.0); EOS # 0.1 10^3/uL (0.0-0.5); EOS % 3.1 % (0.0-3.0); HEMATOCRIT 34.2 % (36.0-47.0); HEMOGLOBIN 10.9 g/dl (12.0-15.5); LYMPH # 0.6 10^3/uL (1.5-5.0); LYMPH % 13.2 % (24.0-44.0); MEAN CORPUSCULAR HEMOGLOBIN 31.7 pg (27.0-33.0); MEAN CORPUSCULAR HGB CONC 31.9 g/dl (32.0-36.5); MEAN CORPUSCULAR VOLUME 99.4 fl (80.0-96.0); MONO # 0.3 10^3/uL (0.0-0.8); NEUTROPHILS # 3.5 10^3/uL (1.5-8.5); NEUTROPHILS % 76.1 % (36.0-66.0); PLATELET COUNT, AUTOMATED 211 10^3/uL (150-450); RED BLOOD COUNT 3.44 10^6/uL (4.00-5.40); WHITE BLOOD COUNT 4.5 10^3/uL (4.0-10.0)
[2021-01-05 11:42] LABS: BLOOD UREA NITROGEN 15 MG/DL (7-18); CALCIUM LEVEL 8.8 MG/DL (8.8-10.2); CARBON DIOXIDE LEVEL 33 MEQ/L (21-32); CHLORIDE LEVEL 107 MEQ/L (98-107); CREATININE FOR GFR 0.85 MG/DL (0.55-1.30); GLOMERULAR FILTRATION RATE > 60.0 (>39); GLUCOSE, FASTING 96 MG/DL (70-100); POTASSIUM SERUM 3.3 MEQ/L (3.5-5.1); SODIUM LEVEL 146 MEQ/L (136-145); THYROID STIMULATING HORMONE 0.454 uIU/ML (0.358-3.740)
== END ==
PROVIDERS: ATTEND Internal Medicine
DX: E86.0 Dehydration (principal); E83.51 Hypocalcemia; Z20.822 Contact with and (suspected) exposure to COVID-19
CPT/HCPCS: 36415; 80048; 84443; 85025; U0003

== ENCOUNTER → 2021-01-13 | Outpatient (REF) | payer MEDICARE, MEDICAID | PROVIDERS: ATTEND Internal Medicine | DX: E83.51 Hypocalcemia (principal) ==

== ENCOUNTER → 2021-01-18 | Outpatient (REF) | payer MEDICARE, MEDICAID | PROVIDERS: ATTEND Internal Medicine | DX: E78.5 Hyperlipidemia, unspecified (principal) ==

== ENCOUNTER → 2021-01-27 | Outpatient (REF) | payer MEDICARE, MEDICAID ==
[2021-01-27 11:07] LABS: BASO % 0.3 % (0.0-1.0); EOS # 0.1 10^3/uL (0.0-0.5); EOS % 1.9 % (0.0-3.0); HEMATOCRIT 34.3 % (36.0-47.0); HEMOGLOBIN 10.8 g/dl (12.0-15.5); LYMPH # 0.5 10^3/uL (1.5-5.0); LYMPH % 7.8 % (24.0-44.0); MEAN CORPUSCULAR HEMOGLOBIN 31.7 pg (27.0-33.0); MEAN CORPUSCULAR HGB CONC 31.5 g/dl (32.0-36.5); MEAN CORPUSCULAR VOLUME 100.6 fl (80.0-96.0); MONO # 0.4 10^3/uL (0.0-0.8); MONO % 6.4 % (2.0-8.0); NEUTROPHILS # 4.9 10^3/uL (1.5-8.5); NEUTROPHILS % 83.3 % (36.0-66.0); PLATELET COUNT, AUTOMATED 206 10^3/uL (150-450); RED BLOOD COUNT 3.41 10^6/uL (4.00-5.40); WHITE BLOOD COUNT 5.9 10^3/uL (4.0-10.0)
== END ==
PROVIDERS: ATTEND Internal Medicine
DX: Z13.89 Encounter for screening for other disorder (principal); Z79.899 Other long term (current) drug therapy

== ENCOUNTER → 2021-02-04 | Outpatient (REF) | payer MEDICARE, MEDICAID ==
[2021-02-04 10:10] LABS: BASO % 0.4 % (0.0-1.0); EOS # 0.2 10^3/uL (0.0-0.5); EOS % 2.9 % (0.0-3.0); HEMATOCRIT 34.6 % (36.0-47.0); HEMOGLOBIN 10.9 g/dl (12.0-15.5); LYMPH # 0.7 10^3/uL (1.5-5.0); LYMPH % 13.5 % (24.0-44.0); MEAN CORPUSCULAR HEMOGLOBIN 31.5 pg (27.0-33.0); MEAN CORPUSCULAR HGB CONC 31.5 g/dl (32.0-36.5); MONO # 0.4 10^3/uL (0.0-0.8); MONO % 7.3 % (2.0-8.0); NEUTROPHILS # 3.9 10^3/uL (1.5-8.5); NEUTROPHILS % 75.7 % (36.0-66.0); PLATELET COUNT, AUTOMATED 195 10^3/uL (150-450); RED BLOOD COUNT 3.46 10^6/uL (4.00-5.40); WHITE BLOOD COUNT 5.1 10^3/uL (4.0-10.0)
== END ==
PROVIDERS: ATTEND Internal Medicine
DX: Z79.899 Other long term (current) drug therapy (principal)

== ENCOUNTER → 2021-02-23 | Outpatient (REF) | payer MEDICARE, MEDICAID ==
[2021-02-23 11:09] LABS: BASO % 0.5 % (0.0-1.0); EOS # 0.2 10^3/uL (0.0-0.5); EOS % 3.1 % (0.0-3.0); HEMATOCRIT 34.8 % (36.0-47.0); HEMOGLOBIN 10.9 g/dl (12.0-15.5); LYMPH # 0.7 10^3/uL (1.5-5.0); LYMPH % 11.8 % (24.0-44.0); MEAN CORPUSCULAR HEMOGLOBIN 31.6 pg (27.0-33.0); MEAN CORPUSCULAR HGB CONC 31.3 g/dl (32.0-36.5); MEAN CORPUSCULAR VOLUME 100.9 fl (80.0-96.0); MONO # 0.5 10^3/uL (0.0-0.8); MONO % 7.5 % (2.0-8.0); NEUTROPHILS # 4.7 10^3/uL (1.5-8.5); NEUTROPHILS % 76.8 % (36.0-66.0); PLATELET COUNT, AUTOMATED 230 10^3/uL (150-450); RED BLOOD COUNT 3.45 10^6/uL (4.00-5.40); WHITE BLOOD COUNT 6.1 10^3/uL (4.0-10.0)
== END ==
PROVIDERS: ATTEND Internal Medicine
DX: Z13.89 Encounter for screening for other disorder (principal); Z79.899 Other long term (current) drug therapy

== ENCOUNTER → 2021-03-09 | Outpatient (REF) | payer MEDICARE, MEDICAID ==
[~2021-03-09] MED LIST changes: +OMEP40CA4 PO; -OMEP40CA97 PO
[2021-03-09 08:57] LABS: BASO % 0.4 % (0.0-1.0); EOS # 0.2 10^3/uL (0.0-0.5); EOS % 2.6 % (0.0-3.0); HEMATOCRIT 33.1 % (36.0-47.0); HEMOGLOBIN 10.4 g/dl (12.0-15.5); LYMPH # 0.7 10^3/uL (1.5-5.0); LYMPH % 12.1 % (24.0-44.0); MEAN CORPUSCULAR HEMOGLOBIN 30.9 pg (27.0-33.0); MEAN CORPUSCULAR HGB CONC 31.4 g/dl (32.0-36.5); MEAN CORPUSCULAR VOLUME 98.2 fl (80.0-96.0); MONO # 0.4 10^3/uL (0.0-0.8); NEUTROPHILS # 4.4 10^3/uL (1.5-8.5); NEUTROPHILS % 77.5 % (36.0-66.0); PLATELET COUNT, AUTOMATED 199 10^3/uL (150-450); RED BLOOD COUNT 3.37 10^6/uL (4.00-5.40); WHITE BLOOD COUNT 5.7 10^3/uL (4.0-10.0)
== END ==
PROVIDERS: ATTEND Internal Medicine
DX: G20 Parkinson's disease (principal)

== ENCOUNTER → 2021-03-23 | Outpatient (REF) | payer MEDICARE, MEDICAID ==
[2021-03-23 10:13] LABS: BASO % 0.2 % (0.0-1.0); EOS # 0.2 10^3/uL (0.0-0.5); EOS % 2.6 % (0.0-3.0); HEMATOCRIT 34.8 % (36.0-47.0); HEMOGLOBIN 11.1 g/dl (12.0-15.5); LYMPH # 0.5 10^3/uL (1.5-5.0); LYMPH % 7.9 % (24.0-44.0); MEAN CORPUSCULAR HEMOGLOBIN 31.4 pg (27.0-33.0); MEAN CORPUSCULAR HGB CONC 31.9 g/dl (32.0-36.5); MEAN CORPUSCULAR VOLUME 98.3 fl (80.0-96.0); MONO # 0.3 10^3/uL (0.0-0.8); MONO % 5.5 % (2.0-8.0); NEUTROPHILS % 83.5 % (36.0-66.0); PLATELET COUNT, AUTOMATED 198 10^3/uL (150-450); RED BLOOD COUNT 3.54 10^6/uL (4.00-5.40)
== END ==
PROVIDERS: ATTEND Internal Medicine
DX: Z13.89 Encounter for screening for other disorder (principal); Z79.899 Other long term (current) drug therapy

== ENCOUNTER → 2021-04-22 | Outpatient (REF) | payer MEDICARE, MEDICAID ==
[2021-04-21 12:29] LABS: BASO % 0.4 % (0.0-1.0); EOS # 0.2 10^3/uL (0.0-0.5); EOS % 2.8 % (0.0-3.0); HEMOGLOBIN 10.1 g/dl (12.0-15.5); LYMPH # 0.7 10^3/uL (1.5-5.0); LYMPH % 12.6 % (24.0-44.0); MEAN CORPUSCULAR HEMOGLOBIN 31.3 pg (27.0-33.0); MEAN CORPUSCULAR HGB CONC 31.6 g/dl (32.0-36.5); MEAN CORPUSCULAR VOLUME 99.1 fl (80.0-96.0); MONO # 0.4 10^3/uL (0.0-0.8); MONO % 7.7 % (2.0-8.0); NEUTROPHILS # 4.1 10^3/uL (1.5-8.5); NEUTROPHILS % 76.3 % (36.0-66.0); PLATELET COUNT, AUTOMATED 205 10^3/uL (150-450); RED BLOOD COUNT 3.23 10^6/uL (4.00-5.40); WHITE BLOOD COUNT 5.3 10^3/uL (4.0-10.0)
[~2021-04-22] MED LIST changes: +QUET1TAB17 PO; -QUET25TA3 PO
== END ==
PROVIDERS: ATTEND Internal Medicine
DX: E87.5 Hyperkalemia (principal)

== ENCOUNTER → 2021-05-24 | Outpatient (REF) | payer MEDICARE, MEDICAID ==
[2021-05-24 10:44] LABS: BASO % 0.6 % (0.0-1.0); EOS # 0.2 10^3/uL (0.0-0.5); EOS % 3.2 % (0.0-3.0); HEMATOCRIT 31.8 % (36.0-47.0); HEMOGLOBIN 10.1 g/dl (12.0-15.5); LYMPH # 0.5 10^3/uL (1.5-5.0); LYMPH % 8.9 % (24.0-44.0); MEAN CORPUSCULAR HEMOGLOBIN 31.6 pg (27.0-33.0); MEAN CORPUSCULAR HGB CONC 31.8 g/dl (32.0-36.5); MEAN CORPUSCULAR VOLUME 99.4 fl (80.0-96.0); MONO # 0.4 10^3/uL (0.0-0.8); MONO % 6.9 % (2.0-8.0); PLATELET COUNT, AUTOMATED 198 10^3/uL (150-450)
== END ==
PROVIDERS: ATTEND Internal Medicine
DX: Z79.899 Other long term (current) drug therapy (principal)

== ENCOUNTER → 2021-06-16 | Outpatient (REF) | payer MEDICARE, MEDICAID ==
[2021-06-16 11:14] LABS: BASO % 0.3 % (0.0-1.0); EOS # 0.1 10^3/uL (0.0-0.5); EOS % 1.8 % (0.0-3.0); HEMATOCRIT 33.3 % (36.0-47.0); HEMOGLOBIN 10.4 g/dl (12.0-15.5); LYMPH # 0.5 10^3/uL (1.5-5.0); MEAN CORPUSCULAR HEMOGLOBIN 31.1 pg (27.0-33.0); MEAN CORPUSCULAR HGB CONC 31.2 g/dl (32.0-36.5); MEAN CORPUSCULAR VOLUME 99.7 fl (80.0-96.0); MONO # 0.7 10^3/uL (0.0-0.8); MONO % 8.8 % (2.0-8.0); NEUTROPHILS # 6.3 10^3/uL (1.5-8.5); NEUTROPHILS % 81.7 % (36.0-66.0); PLATELET COUNT, AUTOMATED 213 10^3/uL (150-450); RED BLOOD COUNT 3.34 10^6/uL (4.00-5.40); WHITE BLOOD COUNT 7.7 10^3/uL (4.0-10.0)
== END ==
PROVIDERS: ATTEND Internal Medicine
DX: Z01.818 Encounter for other preprocedural examination (principal)

== ENCOUNTER → 2021-07-09 | Outpatient (REF) | payer MEDICARE, MEDICAID | PROVIDERS: ATTEND Internal Medicine | DX: R41.82 Altered mental status, unspecified (principal) ==

== ENCOUNTER → 2021-07-09 | Outpatient (REF) | payer MEDICARE, MEDICAID ==
[2021-07-09 13:27] LABS: HEMATOCRIT 34.9 % (36.0-47.0); HEMOGLOBIN 11.4 g/dl (12.0-15.5); MEAN CORPUSCULAR HEMOGLOBIN 31.2 pg (27.0-33.0); MEAN CORPUSCULAR HGB CONC 32.7 g/dl (32.0-36.5); MEAN CORPUSCULAR VOLUME 95.6 fl (80.0-96.0); PLATELET COUNT, AUTOMATED 264 10^3/uL (150-450); RED BLOOD COUNT 3.65 10^6/uL (4.00-5.40); WHITE BLOOD COUNT 7.6 10^3/uL (4.0-10.0)
[2021-07-09 14:03] LABS: BLOOD UREA NITROGEN 17 MG/DL (7-18); CALCIUM LEVEL 9.2 MG/DL (8.8-10.2); CARBON DIOXIDE LEVEL 29 MEQ/L (21-32); CHLORIDE LEVEL 107 MEQ/L (98-107); CREATININE FOR GFR 0.93 MG/DL (0.55-1.30); GLOMERULAR FILTRATION RATE > 60.0 (>39); GLUCOSE, FASTING 88 MG/DL (70-100); POTASSIUM SERUM 3.8 MEQ/L (3.5-5.1); SODIUM LEVEL 143 MEQ/L (136-145)
== END ==
PROVIDERS: ATTEND Internal Medicine
DX: R41.82 Altered mental status, unspecified (principal)

== ENCOUNTER → 2021-07-13 | Outpatient (CLI) | payer MEDICARE, MEDICAID ==
--- NOTE | 2021-07-13 10:47 | REP ---
INDICATION: CONFUSION. COMPARISON: 06/17/2021 TECHNIQUE: Noncontrast soft tissue bone windows with the coronal reconstructions also provided. FINDINGS: Lateral ventricles are midline symmetric and their size proportionate to mild the cerebral atrophy. This is age-appropriate. Basal ganglia are symmetric and normal. Some mild heterogeneous low-attenuation white matter change representing small vessel ischemic disease noted and stable. There is no acute infarct, intracranial hemorrhage, mass or mass effect. Brainstem and cerebellum are age-appropriate without the focal lesion. The posterior fossa without hemorrhage. Basal cisterns are intact. Mastoids and sinuses are grossly clear. There is slight deviation of nasal septum towards the left. The skull base and calvarium show no fracture or focal lesion. IMPRESSION: 1. No evidence of acute infarct, hemorrhage, mass or edema. 2. Chronic small vessel white matter ischemic changes and age-related changes, stable. <Electronically signed by Tyree Mabry > 07/13/21 [id number]
== END ==
LOC: M RAD 10:07
PROVIDERS: ATTEND Physician Assistant
DX: R41.0 Disorientation, unspecified (principal); R07.9 Chest pain, unspecified

== ENCOUNTER → 2021-07-13 | Outpatient (CLI) | payer MEDICARE, MEDICAID ==
--- NOTE | 2021-07-13 16:15 | REP ---
INDICATION: PAIN, CONFUSION. COMPARISON: None. FINDINGS: Portable AP supine of the abdomen fails to include all of the abdomen and pelvis on each view. The imaged portion of the abdomen and pelvis shows no gross abnormality. IMPRESSION: The examination is markedly limited. There is no gross abnormality identified on this markedly limited exam. CT is recommended. <Electronically signed by Kye Bower > 07/13/21 [id number]
--- NOTE | 2021-07-13 16:17 | REP ---
INDICATION: PAIN, CONFUSION. COMPARISON: 02/14/2020 also portable TECHNIQUE: Portable FINDINGS: The technique utilized in obtaining the radiograph has magnified the cardiac silhouette and accentuated the interstitial markings. There is no significant change in appearance of the cardiomediastinal silhouette. There is evidence of mild cardiomegaly accentuated by technique. There is no significant change in appearance of the lung gurrola. Basilar fibrotic changes are noted status quo. No definite acute patchy parenchymal opacities or pleural effusions have developed on this limited portable exam. The osseous structures are stable and intact. IMPRESSION: Stable appearing chronic changes <Electronically signed by Kye Bower > 07/13/21 [id number]
== END ==
PROVIDERS: ATTEND Internal Medicine
DX: R41.0 Disorientation, unspecified (principal); R07.9 Chest pain, unspecified

== ENCOUNTER → 2021-07-13 | Outpatient (REF) | payer MEDICARE, MEDICAID ==
[2021-07-13 15:52] LABS: BASO % 0.5 % (0.0-1.0); EOS # 0.1 10^3/uL (0.0-0.5); EOS % 1.4 % (0.0-3.0); HEMOGLOBIN 10.8 g/dl (12.0-15.5); LYMPH # 0.5 10^3/uL (1.5-5.0); LYMPH % 7.1 % (24.0-44.0); MEAN CORPUSCULAR HEMOGLOBIN 30.8 pg (27.0-33.0); MEAN CORPUSCULAR HGB CONC 30.9 g/dl (32.0-36.5); MEAN CORPUSCULAR VOLUME 99.7 fl (80.0-96.0); MONO # 0.4 10^3/uL (0.0-0.8); MONO % 6.9 % (2.0-8.0); NEUTROPHILS # 5.3 10^3/uL (1.5-8.5); NEUTROPHILS % 83.8 % (36.0-66.0); PLATELET COUNT, AUTOMATED 203 10^3/uL (150-450); RED BLOOD COUNT 3.51 10^6/uL (4.00-5.40); WHITE BLOOD COUNT 6.4 10^3/uL (4.0-10.0)
[2021-07-13 16:17] LABS: ALBUMIN 3.3 GM/DL (3.2-5.2); ALT/SGPT 11 U/L (12-78); BILIRUBIN,DIRECT < 0.1 MG/DL (0.0-0.2); BILIRUBIN,TOTAL 0.4 MG/DL (0.2-1.0); BLOOD UREA NITROGEN 18 MG/DL (7-18); CALCIUM LEVEL 8.9 MG/DL (8.8-10.2); CARBON DIOXIDE LEVEL 29 MEQ/L (21-32); CHLORIDE LEVEL 111 MEQ/L (98-107); CREATININE FOR GFR 1.04 MG/DL (0.55-1.30); FREE T4 1.15 NG/DL (0.76-1.46); GLOMERULAR FILTRATION RATE 55.3 (>39); GLUCOSE, FASTING 98 MG/DL (70-100); POTASSIUM SERUM 4.2 MEQ/L (3.5-5.1); SODIUM LEVEL 144 MEQ/L (136-145); THYROID STIMULATING HORMONE 0.124 uIU/ML (0.358-3.740); TOTAL PROTEIN 6.5 GM/DL (6.4-8.2)
== END ==
PROVIDERS: ATTEND Internal Medicine
DX: R41.0 Disorientation, unspecified (principal)

== ENCOUNTER → 2021-07-15 | Outpatient (REF) | payer MEDICARE, MEDICAID ==
[2021-07-15 11:08] LABS: HEMATOCRIT 30.5 % (36.0-47.0); HEMOGLOBIN 9.4 g/dl (12.0-15.5); MEAN CORPUSCULAR HEMOGLOBIN 31.1 pg (27.0-33.0); MEAN CORPUSCULAR HGB CONC 30.8 g/dl (32.0-36.5); PLATELET COUNT, AUTOMATED 192 10^3/uL (150-450); RED BLOOD COUNT 3.02 10^6/uL (4.00-5.40); WHITE BLOOD COUNT 6.5 10^3/uL (4.0-10.0)
[2021-07-15 11:44] LABS: FERRITIN 54 NG/ML (8-252); IRON (FE) 58 UG/DL (50-170)
== END ==
PROVIDERS: ATTEND Internal Medicine
DX: D64.9 Anemia, unspecified (principal)

== ENCOUNTER → 2021-07-16 | Outpatient (CLI) | payer MEDICARE, MEDICAID ==
[~2021-07-16] MED LIST changes: +GASTROGRAFIN SOLUTION 30ML (Q9963) As Ordered ONE; +ISOVUE-370 76% 100ML VIAL As Ordered ONE
--- NOTE | 2021-07-16 14:00 | REP ---
INDICATION: ABD PAIN, WEIGHT LOSS. COMPARISON: 08/12/2010 TECHNIQUE: Oral Gastrografin mixture 10 mL in 290 mL of flavored water x2 per our bowel contrast protocol than bolus 100 mL Isovue 370 scanning through the abdomen and pelvis with coronal and sagittal reconstructions. Axial reconstruction with orthopedic metal artifact reduction algorithm due to left total hip arthroplasty also provided. FINDINGS: CT abdomen bibasilar platelike atelectatic changes again noted. I do not see dense consolidation or definite effusion. Heart is mildly enlarged. There is left atrial and ventricular enlargement. There is no hiatal hernia. There is no hepatomegaly, hepatic mass or biliary dilatation. Some colonic interposition is noted between the anterior margin and dome of the liver with the right hip diaphragm and chest wall. This is an anatomic variation. Clips from prior cholecystectomy are noted in the gallbladder fossa common duct is without calcified stone pancreas shows no ductal dilatation or definite mass. No peripancreatic edema or fluid collection. Adrenal glands are normal kidneys show symmetric enhancement without hydronephrosis, stone, mass or cyst. There is no splenomegaly or focal splenic lesion. Abdominal aorta is without aneurysm or dissection. No periaortic, other retroperitoneal or mesenteric lymphadenopathy. Abdominal portion of the colon shows stool and gas scattered throughout. Oral contrast did reach the cecum and right colon. Small bowel loops contrast filled but without mass or dilatation. Lung window review of all CT slices shows no perforation or free air. The bone windows show vacuum phenomenon at L1-2 and L2-3. Appears to be fusion of the L4-5 and much of the L5-S1 disc space with some anterolisthesis of L4 on 5 grade 1 and grade 1/2 anterolisthesis of L5 on S1 posterior element fusion with bone graft material at these levels. No acute compression deformity or destructive lesion. The visualized ribs are intact CT pelvis: The bony sacrum, iliac bones and right hip along with the ischia shows some degenerative change. There is a left total hip arthroplasty again seen. Bladder without gross mass, wall thickening or stone. Abundant stool in the distal left colon, sigmoid and rectum. No ascites or pelvic lymphadenopathy identified. Uterus is tilted towards the left not grossly enlarged. No gross pelvic mass or adenopathy. Small bowel loops in the deep pelvis were unremarkable. There is no inflammatory change about the cecum. No ventral or inguinal hernia nor pathologic sized inguinal adenopathy seen. IMPRESSION: 1. Status post cholecystectomy. The liver, pancreas, spleen, adrenal glands and kidneys without any definite acute finding. 2. Colonic interposition over the dome and anterior aspect of the right lobe of the liver as anatomic variation. Stool and gas throughout the colon without mass, colitis or diverticulitis. No stricture. Small bowel loops intact. Stomach without hiatal hernia. No inflammatory changes about the cecum. 3. Some basilar atelectatic change without effusion or dense consolidation with air bronchograms. 4. Degenerative changes and postoperative changes in the lower lumbar spine without definite acute finding. Left total hip arthroplasty. <Electronically signed by Tyree Mabry > 07/16/21 [id number]
== END ==
LOC: M RAD 10:09
PROVIDERS: ATTEND Physician Assistant
DX: R10.9 Unspecified abdominal pain (principal); R63.4 Abnormal weight loss
CPT/HCPCS: 74177; Q9963; Q9967

== ENCOUNTER → 2021-07-22 | Outpatient (REF) | payer MEDICARE, MEDICAID ==
[~2021-07-22] MED LIST changes: -GASTROGRAFIN SOLUTION 30ML (Q9963) As Ordered ONE; -ISOVUE-370 76% 100ML VIAL As Ordered ONE
[2021-07-22 14:40] LABS: HEMATOCRIT 34.4 % (36.0-47.0); HEMOGLOBIN 11.1 g/dl (12.0-15.5); MEAN CORPUSCULAR HEMOGLOBIN 31.9 pg (27.0-33.0); MEAN CORPUSCULAR HGB CONC 32.3 g/dl (32.0-36.5); MEAN CORPUSCULAR VOLUME 98.9 fl (80.0-96.0); PLATELET COUNT, AUTOMATED 194 10^3/uL (150-450); RED BLOOD COUNT 3.48 10^6/uL (4.00-5.40); WHITE BLOOD COUNT 6.6 10^3/uL (4.0-10.0)
[2021-07-22 15:29] LABS: BLOOD UREA NITROGEN 18 MG/DL (7-18); CALCIUM LEVEL 8.8 MG/DL (8.8-10.2); CARBON DIOXIDE LEVEL 30 MEQ/L (21-32); CHLORIDE LEVEL 107 MEQ/L (98-107); CK-MB VALUE MASS 1.1 NG/ML (<3.6); CPK CREATINE PHOSPHOKINASE 153 U/L (26-192); GLOMERULAR FILTRATION RATE 57.9 (>39); GLUCOSE, FASTING 96 MG/DL (70-100); MB/CK RELATIVE INDEX 0.72 (< OR =4); POTASSIUM SERUM 4.1 MEQ/L (3.5-5.1); SODIUM LEVEL 143 MEQ/L (136-145); TROPONIN I < 0.02 NG/ML (< 0.10)
== END ==
PROVIDERS: ATTEND Internal Medicine
DX: R55 Syncope and collapse (principal)

== ENCOUNTER → 2021-07-26 | Outpatient (REF) | payer MEDICARE, MEDICAID ==
[~2021-07-26] MED LIST changes: +POTA-151 PO; -POTA20TA6 PO
== END ==
PROVIDERS: ATTEND Internal Medicine
DX: Z53.9 Procedure and treatment not carried out, unspecified reason (principal)

== ENCOUNTER → 2021-08-09 | Outpatient (REF) | payer MEDICARE, MEDICAID ==
[~2021-08-09] MED LIST changes: -POTA-151 PO; +POTA20TA6 PO
[2021-08-09 12:00] LABS: BASO % 0.7 % (0.0-1.0); EOS # 0.2 10^3/uL (0.0-0.5); EOS % 3.9 % (0.0-3.0); HEMATOCRIT 33.9 % (36.0-47.0); HEMOGLOBIN 10.9 g/dl (12.0-15.5); LYMPH # 0.7 10^3/uL (1.5-5.0); LYMPH % 14.5 % (24.0-44.0); MEAN CORPUSCULAR HEMOGLOBIN 31.6 pg (27.0-33.0); MEAN CORPUSCULAR HGB CONC 32.2 g/dl (32.0-36.5); MEAN CORPUSCULAR VOLUME 98.3 fl (80.0-96.0); MONO # 0.4 10^3/uL (0.0-0.8); MONO % 8.3 % (2.0-8.0); NEUTROPHILS # 3.3 10^3/uL (1.5-8.5); NEUTROPHILS % 72.4 % (36.0-66.0); PLATELET COUNT, AUTOMATED 245 10^3/uL (150-450); RED BLOOD COUNT 3.45 10^6/uL (4.00-5.40); WHITE BLOOD COUNT 4.6 10^3/uL (4.0-10.0)
== END ==
PROVIDERS: ATTEND Internal Medicine
DX: Z01.818 Encounter for other preprocedural examination (principal); Z79.899 Other long term (current) drug therapy

== ENCOUNTER → 2021-08-16 | Outpatient (REF) | payer MEDICARE, MEDICAID ==
[2021-08-16 11:10] LABS: BASO % 0.4 % (0.0-1.0); EOS # 0.1 10^3/uL (0.0-0.5); EOS % 3.1 % (0.0-3.0); HEMATOCRIT 33.1 % (36.0-47.0); HEMOGLOBIN 10.4 g/dl (12.0-15.5); LYMPH # 0.5 10^3/uL (1.5-5.0); LYMPH % 11.4 % (24.0-44.0); MEAN CORPUSCULAR HGB CONC 31.4 g/dl (32.0-36.5); MEAN CORPUSCULAR VOLUME 98.5 fl (80.0-96.0); MONO # 0.4 10^3/uL (0.0-0.8); NEUTROPHILS # 3.4 10^3/uL (1.5-8.5); NEUTROPHILS % 75.7 % (36.0-66.0); PLATELET COUNT, AUTOMATED 220 10^3/uL (150-450); RED BLOOD COUNT 3.36 10^6/uL (4.00-5.40); WHITE BLOOD COUNT 4.5 10^3/uL (4.0-10.0)
== END ==
PROVIDERS: ATTEND Internal Medicine
DX: G20 Parkinson's disease (principal)

== ENCOUNTER → 2021-08-30 | Outpatient (REF) | payer MEDICARE, MEDICAID ==
[2021-08-30 11:24] LABS: BASO % 0.5 % (0.0-1.0); EOS # 0.2 10^3/uL (0.0-0.5); EOS % 3.7 % (0.0-3.0); HEMATOCRIT 31.9 % (36.0-47.0); HEMOGLOBIN 10.1 g/dl (12.0-15.5); LYMPH # 0.5 10^3/uL (1.5-5.0); LYMPH % 12.2 % (24.0-44.0); MEAN CORPUSCULAR HEMOGLOBIN 31.2 pg (27.0-33.0); MEAN CORPUSCULAR HGB CONC 31.7 g/dl (32.0-36.5); MEAN CORPUSCULAR VOLUME 98.5 fl (80.0-96.0); MONO # 0.3 10^3/uL (0.0-0.8); MONO % 7.8 % (2.0-8.0); NEUTROPHILS # 3.3 10^3/uL (1.5-8.5); NEUTROPHILS % 75.6 % (36.0-66.0); PLATELET COUNT, AUTOMATED 204 10^3/uL (150-450); RED BLOOD COUNT 3.24 10^6/uL (4.00-5.40); WHITE BLOOD COUNT 4.4 10^3/uL (4.0-10.0)
== END ==
PROVIDERS: ATTEND Internal Medicine
DX: N18.9 Chronic kidney disease, unspecified (principal)

== ENCOUNTER → 2021-09-10 | Outpatient (CLI) | payer MEDICARE, MEDICAID ==
--- NOTE | 2021-09-10 14:16 | REP ---
INDICATION: R/O ASPIRATION/PNEUMONIA COMPARISON: 07/13/2021 TECHNIQUE: Portable AP view of the chest FINDINGS: The mediastinum and cardiac silhouette are stable and within normal limits for portable technique. The lung gurrola demonstrate stable chronic changes and early superimposed right lower lobe consolidation cannot be excluded. Skeletal structures are intact. IMPRESSION: 1. Suspected superimposed right lower lobe consolidation. <Electronically signed by James Ogden > 09/10/21 [id number]
== END ==
LOC: M RAD 12:22
PROVIDERS: ATTEND Internal Medicine
DX: J69.0 Pneumonitis due to inhalation of food and vomit (principal)

== ENCOUNTER → 2021-09-10 | Outpatient (REF) | payer MEDICARE, MEDICAID ==
[2021-09-10 18:03] LABS: BASO % 0.2 % (0.0-1.0); EOS # 0.1 10^3/uL (0.0-0.5); EOS % 1.9 % (0.0-3.0); HEMATOCRIT 33.2 % (36.0-47.0); HEMOGLOBIN 10.4 g/dl (12.0-15.5); LYMPH # 0.5 10^3/uL (1.5-5.0); LYMPH % 8.1 % (24.0-44.0); MEAN CORPUSCULAR HGB CONC 31.3 g/dl (32.0-36.5); MEAN CORPUSCULAR VOLUME 98.8 fl (80.0-96.0); MONO # 0.4 10^3/uL (0.0-0.8); MONO % 7.3 % (2.0-8.0); NEUTROPHILS # 4.9 10^3/uL (1.5-8.5); NEUTROPHILS % 82.3 % (36.0-66.0); PLATELET COUNT, AUTOMATED 208 10^3/uL (150-450); RED BLOOD COUNT 3.36 10^6/uL (4.00-5.40); WHITE BLOOD COUNT 5.9 10^3/uL (4.0-10.0)
== END ==
PROVIDERS: ATTEND Internal Medicine
DX: G20 Parkinson's disease (principal)

== ENCOUNTER → 2021-09-13 | Outpatient (CLI) | payer MEDICARE, MEDICAID ==
--- NOTE | 2021-09-13 10:01 | REP ---
INDICATION: FEVER. COMPARISON: Multiple the latest 09/10/2021 a portable exam TECHNIQUE: PA and lateral FINDINGS: The opacity seen previously in the right lower lobe is again noted but has improved. There is persistent CP angle blunting. There is no change in the cardiomediastinal silhouette. The heart is not enlarged. Curvilinear and discoid opacities are again seen in the lower lung gurrola status quo. There is no change in the osseous structures. IMPRESSION: There has been some improvement as described above, however, they are persistent findings as well. Additional follow-up is recommended. <Electronically signed by Kye Bower > 09/13/21 [id number]
== END ==
LOC: M RAD 09:37
PROVIDERS: ATTEND Internal Medicine
DX: R91.8 Other nonspecific abnormal finding of lung field (principal); Z87.09 Personal history of other diseases of the respiratory system

== ENCOUNTER → 2021-09-13 | Outpatient (REF) | payer MEDICARE, MEDICAID ==
[~2021-09-13] MED LIST changes: +POTA-151 PO; -POTA20TA6 PO
== END ==
PROVIDERS: ATTEND Internal Medicine
DX: G20 Parkinson's disease (principal); Z53.9 Procedure and treatment not carried out, unspecified reason

== ENCOUNTER → 2021-10-11 | Outpatient (REF) | payer MEDICARE, MEDICAID ==
[2021-10-11 11:29] LABS: BASO % 0.3 % (0.0-1.0); EOS # 0.2 10^3/uL (0.0-0.5); EOS % 3.1 % (0.0-3.0); HEMATOCRIT 32.4 % (36.0-47.0); HEMOGLOBIN 10.2 g/dl (12.0-15.5); LYMPH # 0.7 10^3/uL (1.5-5.0); LYMPH % 11.1 % (24.0-44.0); MEAN CORPUSCULAR HEMOGLOBIN 30.6 pg (27.0-33.0); MEAN CORPUSCULAR HGB CONC 31.5 g/dl (32.0-36.5); MEAN CORPUSCULAR VOLUME 97.3 fl (80.0-96.0); MONO # 0.6 10^3/uL (0.0-0.8); MONO % 9.9 % (2.0-8.0); NEUTROPHILS # 4.4 10^3/uL (1.5-8.5); NEUTROPHILS % 75.3 % (36.0-66.0); PLATELET COUNT, AUTOMATED 184 10^3/uL (150-450); RED BLOOD COUNT 3.33 10^6/uL (4.00-5.40); WHITE BLOOD COUNT 5.9 10^3/uL (4.0-10.0)
== END ==
PROVIDERS: ATTEND Internal Medicine
DX: G20 Parkinson's disease (principal)

== ENCOUNTER → 2021-10-22 | Outpatient (REF) | payer MEDICARE, MEDICAID | PROVIDERS: ATTEND Physician Assistant | DX: R05.9 Cough, unspecified (principal) ==

== ENCOUNTER → 2021-10-22 | Outpatient (CLI) | payer MEDICARE, MEDICAID | PROVIDERS: ATTEND Internal Medicine | DX: R05.9 Cough, unspecified (principal) ==

== ENCOUNTER 2021-11-10 12:40 | Inpatient (IN) | payer MEDICARE, MEDICAID ==
[~2021-11-10] VITALS: Ht 167.6 cm; Wt 98.9 kg
[2021-11-10] MEDS ORDERED: MORPHINE 10 MG/ML 1ML VIAL (J2270) IM ONE (12:55)
[2021-11-10 14:59] LABS: BASO % 0.2 % (0.0-1.0); EOS # 0.1 10^3/uL (0.0-0.5); EOS % 1.3 % (0.0-3.0); HEMATOCRIT 29.3 % (36.0-47.0); HEMOGLOBIN 9.3 g/dl (12.0-15.5); LYMPH # 0.5 10^3/uL (1.5-5.0); LYMPH % 7.9 % (24.0-44.0); MEAN CORPUSCULAR HEMOGLOBIN 30.8 pg (27.0-33.0); MEAN CORPUSCULAR HGB CONC 31.7 g/dl (32.0-36.5); MONO # 0.6 10^3/uL (0.0-0.8); MONO % 10.6 % (2.0-8.0); NEUTROPHILS # 4.8 10^3/uL (1.5-8.5); NEUTROPHILS % 79.8 % (36.0-66.0); PLATELET COUNT, AUTOMATED 196 10^3/uL (150-450); RED BLOOD COUNT 3.02 10^6/uL (4.00-5.40); WHITE BLOOD COUNT 6.1 10^3/uL (4.0-10.0)
[2021-11-10 15:21] LABS: BLOOD UREA NITROGEN 14 MG/DL (7-18); CALCIUM LEVEL 8.3 MG/DL (8.8-10.2); CARBON DIOXIDE LEVEL 32 MEQ/L (21-32); CHLORIDE LEVEL 111 MEQ/L (98-107); CREATININE FOR GFR 0.76 MG/DL (0.55-1.30); GLOMERULAR FILTRATION RATE > 60.0 (>39); GLUCOSE, FASTING 97 MG/DL (70-100); POTASSIUM SERUM 4.4 MEQ/L (3.5-5.1); SODIUM LEVEL 145 MEQ/L (136-145)
[2021-11-10 15:32] LABS: RSV AMPLIFICATION NEGATIVE (NEGATIVE)
[2021-11-10] MEDS ORDERED: FLUD0.1T PO (15:37)
[2021-11-10] MEDS ORDERED: CLOZ25TA3 PO (15:37)
[2021-11-10] MEDS ORDERED: RIVA1CAP3 PO (15:37)
[2021-11-10] MEDS ORDERED: ROPI0.253 PO (15:37)
[2021-11-10] MEDS ORDERED: CARB1TAB97 PO (15:37)
[2021-11-10] MEDS ORDERED: POTA10TA17 PO (15:37)
[2021-11-10] MEDS ORDERED: MIDO10TA PO ×2 (15:37)
[2021-11-10] MEDS ORDERED: POLY17PO10 PO (15:37)
[2021-11-10] MEDS ORDERED: CARB25TA9 PO (15:48)
[2021-11-10] MEDS ORDERED: BISA10SU PR (15:48)
[2021-11-10] MEDS ORDERED: ACET325T43 PO (15:51)
[2021-11-10] MEDS ORDERED: MILKSUS7 PO (15:52)
[2021-11-10] MEDS ORDERED: VENL100T PO (15:59)
[2021-11-10] MEDS ORDERED: POTA10CA32 PO (15:59)
[2021-11-10] MEDS ORDERED: HOME MED LIST COMPLETE! XX SCH (16:00)
[2021-11-10] MEDS ORDERED: MOM 30ML SUSPENSION UDC PO PRN (16:30)
[2021-11-10] MEDS ORDERED: BISACODYL 10 MG SUPP PR PRN (16:30)
[2021-11-10] MEDS ORDERED: ACETAMINOPHEN 325 MG TAB PO PRN (16:30)
[2021-11-10 19:00] VITALS: BP 158/88
[2021-11-10] MEDS ORDERED: RIVASTIGMINE 3 MG PO SCH (21:00)
[2021-11-10] MEDS: cloZAPine 25 MG TAB (S0136) PO SCH (21:00)
[2021-11-10] MEDS: POLYVINYL ALCOHOL OPHTH SOLN 15 ML(LIQUITEARS) OU SCH (21:00)
[2021-11-10] MEDS: rOPINIRole 0.25 MG TAB(REQUIP) PO SCH (21:00)
[2021-11-10] MEDS: FLUDROCORTISONE ACETATE 0.1 MG TAB PO SCH (21:00)
[2021-11-10] MEDS: POTASSIUM CHLORIDE 10MEQ SR TABLET PO SCH (21:00)
[2021-11-10] MEDS: VENLAFAXINE 25 MG TAB PO SCH (21:00)
[2021-11-10] MEDS: SINEMET**CR** 25/100 TABCR PO SCH (21:00)
[2021-11-10 22:00] VITALS: BP 147/82
[2021-11-11] MEDS: SINEMET 25-100 MG TAB PO SCH ×4 (05:32→18:16)
[2021-11-11] MEDS: ACETAMINOPHEN TAB 650MG DOSE (2X325MG) PO PRN ×2 (05:33→20:34)
[2021-11-11 06:00] VITALS: BP 122/67
[2021-11-11] MEDS ORDERED: MORPHINE 4 MG/ML 1ML VIAL/SYRINGE (J2270) IV PRN (07:50)
[2021-11-11] MEDS: rOPINIRole 0.25 MG TAB(REQUIP) PO SCH ×3 (08:27→20:33)
[2021-11-11] MEDS: POLYVINYL ALCOHOL OPHTH SOLN 15 ML(LIQUITEARS) OU SCH ×4 (08:27→20:34)
[2021-11-11] MEDS: FLUDROCORTISONE ACETATE 0.1 MG TAB PO SCH ×2 (08:27→20:33)
[2021-11-11] MEDS: ASPIRIN 81MG ENTERIC TABLET PO SCH (08:27)
[2021-11-11] MEDS: MIRALAX *UNIT DOSE* 17GM PACKET PO SCH (08:27)
[2021-11-11] MEDS: POTASSIUM CHLORIDE 10MEQ SR TABLET PO SCH ×2 (08:28→20:33)
[2021-11-11] MEDS: MIDODRINE 5 MG TAB PO SCH ×3 (08:29→18:16)
[2021-11-11] MEDS ORDERED: ENOXAPARIN 40MG/0.4ML SYRINGE (J1650 PER 10MG) SC SCH (09:00)
[2021-11-11 09:04] LABS: HEMATOCRIT 28.3 % (36.0-47.0); HEMOGLOBIN 9.1 g/dl (12.0-15.5); MEAN CORPUSCULAR HEMOGLOBIN 31.1 pg (27.0-33.0); MEAN CORPUSCULAR HGB CONC 32.2 g/dl (32.0-36.5); MEAN CORPUSCULAR VOLUME 96.6 fl (80.0-96.0); PLATELET COUNT, AUTOMATED 172 10^3/uL (150-450); RED BLOOD COUNT 2.93 10^6/uL (4.00-5.40); WHITE BLOOD COUNT 6.1 10^3/uL (4.0-10.0)
[2021-11-11 09:36] LABS: BLOOD UREA NITROGEN 17 MG/DL (7-18); CALCIUM LEVEL 8.6 MG/DL (8.8-10.2); CARBON DIOXIDE LEVEL 31 MEQ/L (21-32); CHLORIDE LEVEL 110 MEQ/L (98-107); CREATININE FOR GFR 0.83 MG/DL (0.55-1.30); GLOMERULAR FILTRATION RATE > 60.0 (>39); GLUCOSE, FASTING 95 MG/DL (70-100); MAGNESIUM LEVEL 2.2 MG/DL (1.8-2.4); POTASSIUM SERUM 3.5 MEQ/L (3.5-5.1); SODIUM LEVEL 145 MEQ/L (136-145)
[2021-11-11 14:00] VITALS: BP 94/44
[2021-11-11] MEDS: VENLAFAXINE 25 MG TAB PO SCH (20:33)
[2021-11-11] MEDS: SINEMET**CR** 25/100 TABCR PO SCH (20:34)
[2021-11-11] MEDS: cloZAPine 25 MG TAB (S0136) PO SCH (20:34)
[2021-11-11 22:00] VITALS: BP 114/53
[2021-11-12] VITALS (18 sets, daily range): BP systolic 93–131; BP diastolic 50–70; O2SAT 94
[2021-11-12] MEDS ORDERED: NALOXONE INJ 0.4MG/1ML VIAL (J2310 PER 1MG) IV STA (02:00)
[2021-11-12 02:02] LABS: ABG BASE EXCESS 4.3 (-2.0-2.0); ABG HCO3 30.3 MEQ/L (22.0-26.0); ABG O2 SATURATION 93.3 % (95.0-99.0); ABG PARTIAL PRESSURE CO2 53.4 mmHg (35.0-45.0); ABG PARTIAL PRESSURE O2 69.4 mmHg (75.0-100.0); ABG STANDARD HCO3 28.3 MEQ/L (22.0-26.0); ABG pH (ARTERIAL) 7.372 UNITS (7.350-7.450)
[2021-11-12] MEDS ORDERED: ISOVUE-370 76% 100ML VIAL As Ordered ONE (02:07)
[2021-11-12 03:58] LABS: ABG BASE EXCESS 1.1 (-2.0-2.0); ABG HCO3 26.7 MEQ/L (22.0-26.0); ABG O2 SATURATION 97.1 % (95.0-99.0); ABG PARTIAL PRESSURE O2 97.2 mmHg (75.0-100.0); ABG STANDARD HCO3 25.5 MEQ/L (22.0-26.0); ABG TOTAL CO2 28.1 MEQ/L (23.0-31.0); ABG pH (ARTERIAL) 7.372 UNITS (7.350-7.450)
[2021-11-12 05:27] LABS: HEMATOCRIT 28.5 % (36.0-47.0); HEMOGLOBIN 8.8 g/dl (12.0-15.5); MEAN CORPUSCULAR HEMOGLOBIN 30.7 pg (27.0-33.0); MEAN CORPUSCULAR HGB CONC 30.9 g/dl (32.0-36.5); MEAN CORPUSCULAR VOLUME 99.3 fl (80.0-96.0); PLATELET COUNT, AUTOMATED 163 10^3/uL (150-450); RED BLOOD COUNT 2.87 10^6/uL (4.00-5.40); WHITE BLOOD COUNT 5.2 10^3/uL (4.0-10.0)
[2021-11-12 05:43] LABS: BLOOD UREA NITROGEN 19 MG/DL (7-18); CALCIUM LEVEL 8.2 MG/DL (8.8-10.2); CARBON DIOXIDE LEVEL 33 MEQ/L (21-32); CHLORIDE LEVEL 108 MEQ/L (98-107); CREATININE FOR GFR 0.91 MG/DL (0.55-1.30); GLOMERULAR FILTRATION RATE > 60.0 (>39); GLUCOSE, FASTING 106 MG/DL (70-100); POTASSIUM SERUM 4.1 MEQ/L (3.5-5.1); SODIUM LEVEL 142 MEQ/L (136-145)
[2021-11-12] MEDS: SINEMET 25-100 MG TAB PO SCH ×4 (05:44→18:00)
[2021-11-12] MEDS: MIDODRINE 5 MG TAB PO SCH ×3 (08:00→18:00)
[2021-11-12] MEDS: POTASSIUM CHLORIDE 10MEQ SR TABLET PO SCH ×2 (09:00→20:56)
[2021-11-12] MEDS: FLUDROCORTISONE ACETATE 0.1 MG TAB PO SCH ×2 (09:00→20:56)
[2021-11-12] MEDS: rOPINIRole 0.25 MG TAB(REQUIP) PO SCH ×3 (09:00→20:57)
[2021-11-12] MEDS: MIRALAX *UNIT DOSE* 17GM PACKET PO SCH (09:00)
[2021-11-12] MEDS: ASPIRIN 81MG ENTERIC TABLET PO SCH (09:00)
[2021-11-12] MEDS: POLYVINYL ALCOHOL OPHTH SOLN 15 ML(LIQUITEARS) OU SCH ×4 (10:44→21:26)
[2021-11-12] MEDS ORDERED: LIDOCAINE 1% MDV 20ML VIAL XX ONE (12:00)
[2021-11-12] MEDS ORDERED: ROPIvacaine 0.5% 30ML INJECTION (J2795 PER 1MG) XX ONE (12:00)
[2021-11-12] MEDS ORDERED: EPINEPHrine INJ 1 MG/ML 1ML AMP XX ONE (12:00)
[2021-11-12] MEDS ORDERED: dexameTHASONE 10MG/1ML VIAL PRES.FREE (J1100 PER 1MG) XX ONE (12:00)
[2021-11-12] MEDS ORDERED: dexameTHASONE 4 MG/ML 1ML VIAL (J1100 PER 1MG) As Ordered ONE ×2 (12:38→12:52)
[2021-11-12] MEDS ORDERED: LIDOCAINE W/EPINEPHRINE 1% 20ML VIAL As Ordered ONE (12:44)
[2021-11-12] MEDS ORDERED: LIDOCAINE 2% 100MG/5ML SDV (FOR ANES.) As Ordered ONE (12:52)
[2021-11-12] MEDS ORDERED: ONDANSETRON 4MG/2ML VIAL As Ordered ONE (12:52)
[2021-11-12] MEDS ORDERED: propofoL 200 MG/20 ML VIAL As Ordered ONE (12:52)
[2021-11-12] MEDS ORDERED: ceFAZolin 2 GM/D5W 50 ML IV BAG (J0690 PER 500MG) As Ordered ONE (14:08)
[2021-11-12] MEDS ORDERED: TRANEXAMIC ACID 100 MG/ML 10ML VIAL As Ordered ONE (14:08)
[2021-11-12] MEDS ORDERED: PHENYLephrine 500MCG 5ML (100MCG/ML) SYRINGE As Ordered ONE (14:40)
[2021-11-12] MEDS ORDERED: ePHEDrine SULFATE 25 MG/5 ML(5MG/ML) SYRINGE As Ordered ONE (14:40)
[2021-11-12] MEDS ORDERED: PHENYLEPHRINE 10MG/ML 1ML VIAL (J2370 PER 1) As Ordered ONE (16:11)
[2021-11-12] MEDS ORDERED: VASOPRESSIN INJ 20 UNITS/ML VIAL As Ordered ONE (16:26)
[2021-11-12] MEDS ORDERED: LR 1,000 ML IV SCH (17:45)
[2021-11-12] MEDS ORDERED: ONDANSETRON 4MG/2ML VIAL IV PRN ×2 (17:45→19:30)
[2021-11-12] MEDS ORDERED: NS 1,000 ML IV SCH (19:00)
[2021-11-12] MEDS ORDERED: KETOROLAC 30 MG/ML 1ML VIAL IV PRN (19:10)
[2021-11-12] MEDS ORDERED: PERCOCET 5MG/325MG TAB PO PRN ×2 (19:30)
[2021-11-12] MEDS: LR 1,000 ML IV SCH (20:29)
[2021-11-12] MEDS: cloZAPine 25 MG TAB (S0136) PO SCH (20:55)
[2021-11-12] MEDS: VENLAFAXINE 25 MG TAB PO SCH (20:56)
[2021-11-12] MEDS: SINEMET**CR** 25/100 TABCR PO SCH (20:57)
[2021-11-12] MEDS: ceFAZolin SOD 2 GM in IV 1 EA IV SCH (21:48)
[2021-11-12] MEDS ORDERED: ceFAZolin SOD 1 GM in D5W MINI-BAG PLUS 50 ML IV SCH (22:00)
[2021-11-13] VITALS (7 sets, daily range): BP systolic 101–118; BP diastolic 55–64
[2021-11-13 05:23] LABS: HEMATOCRIT 27.3 % (36.0-47.0); HEMOGLOBIN 8.4 g/dl (12.0-15.5); MEAN CORPUSCULAR HEMOGLOBIN 30.7 pg (27.0-33.0); MEAN CORPUSCULAR HGB CONC 30.8 g/dl (32.0-36.5); MEAN CORPUSCULAR VOLUME 99.6 fl (80.0-96.0); PLATELET COUNT, AUTOMATED 173 10^3/uL (150-450); RED BLOOD COUNT 2.74 10^6/uL (4.00-5.40); WHITE BLOOD COUNT 7.5 10^3/uL (4.0-10.0)
[2021-11-13] MEDS: LR 1,000 ML IV SCH (05:28)
[2021-11-13] MEDS: SINEMET 25-100 MG TAB PO SCH ×4 (05:28→17:46)
[2021-11-13] MEDS: ceFAZolin SOD 2 GM in IV 1 EA IV SCH (05:28)
[2021-11-13 05:52] LABS: BLOOD UREA NITROGEN 13 MG/DL (7-18); CALCIUM LEVEL 8.3 MG/DL (8.8-10.2); CARBON DIOXIDE LEVEL 32 MEQ/L (21-32); CHLORIDE LEVEL 111 MEQ/L (98-107); CREATININE FOR GFR 0.74 MG/DL (0.55-1.30); GLOMERULAR FILTRATION RATE > 60.0 (>39); GLUCOSE, FASTING 126 MG/DL (70-100); POTASSIUM SERUM 4.3 MEQ/L (3.5-5.1); SODIUM LEVEL 145 MEQ/L (136-145)
[2021-11-13] MEDS: MIDODRINE 5 MG TAB PO SCH ×3 (08:00→17:46)
[2021-11-13] MEDS: POLYVINYL ALCOHOL OPHTH SOLN 15 ML(LIQUITEARS) OU SCH ×4 (09:00→21:01)
[2021-11-13] MEDS: MIRALAX *UNIT DOSE* 17GM PACKET PO SCH (09:09)
[2021-11-13] MEDS: ASPIRIN 81MG ENTERIC TABLET PO SCH ×2 (09:10→20:59)
[2021-11-13] MEDS: ACETAMINOPHEN TAB 650MG DOSE (2X325MG) PO PRN ×2 (09:10→21:00)
[2021-11-13] MEDS: POTASSIUM CHLORIDE 10MEQ SR TABLET PO SCH ×2 (09:11→21:00)
[2021-11-13] MEDS: FLUDROCORTISONE ACETATE 0.1 MG TAB PO SCH ×2 (09:11→21:00)
[2021-11-13] MEDS: rOPINIRole 0.25 MG TAB(REQUIP) PO SCH ×3 (09:11→21:00)
[2021-11-13] MEDS: VENLAFAXINE 25 MG TAB PO SCH (20:59)
[2021-11-13] MEDS: SINEMET**CR** 25/100 TABCR PO SCH (21:00)
[2021-11-13] MEDS: cloZAPine 25 MG TAB (S0136) PO SCH (21:00)
[2021-11-14] VITALS (17 sets, daily range): BP systolic 91–140; BP diastolic 51–86
[2021-11-14 05:17] LABS: HEMATOCRIT 23.1 % (36.0-47.0); HEMOGLOBIN 7.3 g/dl (12.0-15.5); MEAN CORPUSCULAR HEMOGLOBIN 31.2 pg (27.0-33.0); MEAN CORPUSCULAR HGB CONC 31.6 g/dl (32.0-36.5); MEAN CORPUSCULAR VOLUME 98.7 fl (80.0-96.0); PLATELET COUNT, AUTOMATED 183 10^3/uL (150-450); RED BLOOD COUNT 2.34 10^6/uL (4.00-5.40); WHITE BLOOD COUNT 7.7 10^3/uL (4.0-10.0)
[2021-11-14 05:38] LABS: BLOOD UREA NITROGEN 19 MG/DL (7-18); CALCIUM LEVEL 8.2 MG/DL (8.8-10.2); CARBON DIOXIDE LEVEL 33 MEQ/L (21-32); CHLORIDE LEVEL 109 MEQ/L (98-107); CREATININE FOR GFR 0.74 MG/DL (0.55-1.30); GLOMERULAR FILTRATION RATE > 60.0 (>39); GLUCOSE, FASTING 101 MG/DL (70-100); POTASSIUM SERUM 4.1 MEQ/L (3.5-5.1); SODIUM LEVEL 145 MEQ/L (136-145)
[2021-11-14] MEDS: SINEMET 25-100 MG TAB PO SCH ×4 (06:11→18:31)
[2021-11-14] MEDS: FLUDROCORTISONE ACETATE 0.1 MG TAB PO SCH ×2 (07:53→22:33)
[2021-11-14] MEDS: POTASSIUM CHLORIDE 10MEQ SR TABLET PO SCH ×2 (07:53→22:33)
[2021-11-14] MEDS: MIDODRINE 5 MG TAB PO SCH ×3 (07:53→18:00)
[2021-11-14] MEDS: ASPIRIN 81MG ENTERIC TABLET PO SCH ×2 (07:53→22:31)
[2021-11-14] MEDS: rOPINIRole 0.25 MG TAB(REQUIP) PO SCH ×3 (07:53→22:31)
[2021-11-14] MEDS: POLYVINYL ALCOHOL OPHTH SOLN 15 ML(LIQUITEARS) OU SCH ×4 (07:54→22:34)
[2021-11-14] MEDS: MIRALAX *UNIT DOSE* 17GM PACKET PO SCH (07:54)
[2021-11-14] MEDS: VENLAFAXINE 25 MG TAB PO SCH (22:32)
[2021-11-14] MEDS: SINEMET**CR** 25/100 TABCR PO SCH (22:33)
[2021-11-14] MEDS: cloZAPine 25 MG TAB (S0136) PO SCH (22:34)
[2021-11-15 05:18] VITALS: BP 96/74
[2021-11-15] MEDS: SINEMET 25-100 MG TAB PO SCH ×4 (05:54→18:39)
[2021-11-15 06:07] LABS: HEMATOCRIT 28.6 % (36.0-47.0); HEMOGLOBIN 8.7 g/dl (12.0-15.5); MEAN CORPUSCULAR HEMOGLOBIN 30.3 pg (27.0-33.0); MEAN CORPUSCULAR HGB CONC 30.4 g/dl (32.0-36.5); MEAN CORPUSCULAR VOLUME 99.7 fl (80.0-96.0); PLATELET COUNT, AUTOMATED 181 10^3/uL (150-450); RED BLOOD COUNT 2.87 10^6/uL (4.00-5.40); WHITE BLOOD COUNT 6.5 10^3/uL (4.0-10.0)
[2021-11-15 06:14] LABS: BLOOD UREA NITROGEN 16 MG/DL (7-18); CALCIUM LEVEL 8.5 MG/DL (8.8-10.2); CARBON DIOXIDE LEVEL 34 MEQ/L (21-32); CHLORIDE LEVEL 110 MEQ/L (98-107); CREATININE FOR GFR 0.67 MG/DL (0.55-1.30); GLOMERULAR FILTRATION RATE > 60.0 (>39); GLUCOSE, FASTING 92 MG/DL (70-100); POTASSIUM SERUM 3.8 MEQ/L (3.5-5.1); SODIUM LEVEL 145 MEQ/L (136-145)
[2021-11-15 06:58] VITALS: BP 120/62
[2021-11-15 08:15] VITALS: BP 108/64
[2021-11-15] MEDS: POLYVINYL ALCOHOL OPHTH SOLN 15 ML(LIQUITEARS) OU SCH ×4 (09:12→20:59)
[2021-11-15] MEDS: MIRALAX *UNIT DOSE* 17GM PACKET PO SCH (09:12)
[2021-11-15] MEDS: rOPINIRole 0.25 MG TAB(REQUIP) PO SCH ×3 (09:13→20:58)
[2021-11-15] MEDS: MIDODRINE 5 MG TAB PO SCH ×3 (09:13→18:00)
[2021-11-15] MEDS: ASPIRIN 81MG ENTERIC TABLET PO SCH ×2 (09:13→20:57)
[2021-11-15] MEDS: POTASSIUM CHLORIDE 10MEQ SR TABLET PO SCH ×2 (09:13→20:57)
[2021-11-15] MEDS: FLUDROCORTISONE ACETATE 0.1 MG TAB PO SCH ×2 (10:22→20:58)
[2021-11-15 13:51] LABS: ABG BASE EXCESS 7.7 (-2.0-2.0); ABG HCO3 32.6 MEQ/L (22.0-26.0); ABG PARTIAL PRESSURE CO2 48.5 mmHg (35.0-45.0); ABG PARTIAL PRESSURE O2 107.6 mmHg (75.0-100.0); ABG STANDARD HCO3 31.5 MEQ/L (22.0-26.0); ABG TOTAL CO2 34.1 MEQ/L (23.0-31.0); ABG pH (ARTERIAL) 7.446 UNITS (7.350-7.450)
[2021-11-15] MEDS: cefTRIAXone SOD 1 GM in D5W MINI-BAG PLUS 50 ML IV SCH (16:13)
[2021-11-15] MEDS: VENLAFAXINE 25 MG TAB PO SCH (20:56)
[2021-11-15] MEDS: SINEMET**CR** 25/100 TABCR PO SCH (20:57)
[2021-11-15] MEDS: cloZAPine 25 MG TAB (S0136) PO SCH (20:58)
[2021-11-16] VITALS (15 sets, daily range): BP systolic 88–136; BP diastolic 49–68
[2021-11-16 03:24] LABS: ABG BASE EXCESS 3.7 (-2.0-2.0); ABG HCO3 29.2 MEQ/L (22.0-26.0); ABG O2 SATURATION 97.3 % (95.0-99.0); ABG PARTIAL PRESSURE CO2 49.3 mmHg (35.0-45.0); ABG PARTIAL PRESSURE O2 101.9 mmHg (75.0-100.0); ABG STANDARD HCO3 27.8 MEQ/L (22.0-26.0); ABG TOTAL CO2 30.7 MEQ/L (23.0-31.0)
[2021-11-16 05:31] LABS: VENOUS BASE EXCESS 6.4 (-2.0-2.0); VENOUS HCO3 32.7 MEQ/L (23.0-27.0); VENOUS O2 SATURATION 93.7 % (60.0-80.0); VENOUS PARTIAL PRESSURE CO2 58.6 mmHg (38.0-50.0); VENOUS PARTIAL PRESSURE O2 73.5 mmHg (30.0-50.0); VENOUS PH 7.365 UNITS (7.330-7.430); VENOUS STANDARD HCO3 30.2 MEQ/L; VENOUS TOTAL CO2 34.5 MEQ/L (24.0-28.0)
[2021-11-16] MEDS: MIDODRINE 5 MG TAB PO SCH ×3 (08:00→17:22)
[2021-11-16] MEDS ORDERED: NALOXONE INJ 0.4MG/1ML VIAL (J2310 PER 1MG) IV STA ×2 (08:36→10:04)
[2021-11-16] MEDS: SINEMET 25-100 MG TAB PO SCH ×4 (08:50→17:22)
[2021-11-16] MEDS: FLUDROCORTISONE ACETATE 0.1 MG TAB PO SCH ×2 (09:00→20:27)
[2021-11-16] MEDS: MIRALAX *UNIT DOSE* 17GM PACKET PO SCH (09:00)
[2021-11-16] MEDS: ASPIRIN 81MG ENTERIC TABLET PO SCH ×2 (09:00→20:27)
[2021-11-16] MEDS: rOPINIRole 0.25 MG TAB(REQUIP) PO SCH ×3 (09:00→20:28)
[2021-11-16] MEDS: POTASSIUM CHLORIDE 10MEQ SR TABLET PO SCH ×2 (09:00→20:27)
[2021-11-16] MEDS: POLYVINYL ALCOHOL OPHTH SOLN 15 ML(LIQUITEARS) OU SCH ×4 (09:00→20:27)
[2021-11-16 09:41] LABS: HEMATOCRIT 26.2 % (36.0-47.0); HEMOGLOBIN 8.3 g/dl (12.0-15.5); MEAN CORPUSCULAR HEMOGLOBIN 30.5 pg (27.0-33.0); MEAN CORPUSCULAR HGB CONC 31.7 g/dl (32.0-36.5); MEAN CORPUSCULAR VOLUME 96.3 fl (80.0-96.0); PLATELET COUNT, AUTOMATED 214 10^3/uL (150-450); RED BLOOD COUNT 2.72 10^6/uL (4.00-5.40); WHITE BLOOD COUNT 6.1 10^3/uL (4.0-10.0)
[2021-11-16 10:15] LABS: BLOOD UREA NITROGEN 15 MG/DL (7-18); CALCIUM LEVEL 8.3 MG/DL (8.8-10.2); CARBON DIOXIDE LEVEL 35 MEQ/L (21-32); CHLORIDE LEVEL 111 MEQ/L (98-107); CREATININE FOR GFR 0.64 MG/DL (0.55-1.30); GLOMERULAR FILTRATION RATE > 60.0 (>39); GLUCOSE, FASTING 98 MG/DL (70-100); POTASSIUM SERUM 3.9 MEQ/L (3.5-5.1); SODIUM LEVEL 148 MEQ/L (136-145)
[2021-11-16] MEDS: cefTRIAXone SOD 1 GM in D5W MINI-BAG PLUS 50 ML IV SCH (14:52)
[2021-11-16] MEDS ORDERED: MIDODRINE 5 MG TAB PO ONE (20:25)
[2021-11-16] MEDS: VENLAFAXINE 25 MG TAB PO SCH (20:26)
[2021-11-16] MEDS: SINEMET**CR** 25/100 TABCR PO SCH (20:27)
[2021-11-16] MEDS: cloZAPine 25 MG TAB (S0136) PO SCH (20:28)
[2021-11-17] VITALS (12 sets, daily range): BP systolic 99–125; BP diastolic 53–66
[2021-11-17] MEDS: SINEMET 25-100 MG TAB PO SCH ×4 (06:14→17:35)
[2021-11-17] MEDS: MIDODRINE 5 MG TAB PO SCH ×3 (08:00→17:35)
[2021-11-17] MEDS: MIRALAX *UNIT DOSE* 17GM PACKET PO SCH (08:48)
[2021-11-17] MEDS: POTASSIUM CHLORIDE 10MEQ SR TABLET PO SCH ×2 (08:48→23:44)
[2021-11-17] MEDS: ASPIRIN 81MG ENTERIC TABLET PO SCH ×2 (08:48→23:43)
[2021-11-17] MEDS: FLUDROCORTISONE ACETATE 0.1 MG TAB PO SCH ×2 (08:48→23:44)
[2021-11-17] MEDS: rOPINIRole 0.25 MG TAB(REQUIP) PO SCH ×3 (08:48→23:44)
[2021-11-17] MEDS: POLYVINYL ALCOHOL OPHTH SOLN 15 ML(LIQUITEARS) OU SCH ×4 (08:49→23:45)
[2021-11-17] MEDS: cloZAPine 25 MG TAB (S0136) PO SCH (23:43)
[2021-11-17] MEDS: VENLAFAXINE 25 MG TAB PO SCH (23:44)
[2021-11-17] MEDS: SINEMET**CR** 25/100 TABCR PO SCH (23:44)
[2021-11-17] MEDS: ACETAMINOPHEN TAB 650MG DOSE (2X325MG) PO PRN (23:45)
[2021-11-18 05:48] VITALS: BP 120/65
[2021-11-18] MEDS: SINEMET 25-100 MG TAB PO SCH ×2 (06:03→08:43)
[2021-11-18] MEDS: MIDODRINE 5 MG TAB PO SCH ×2 (08:00→12:00)
[2021-11-18] MEDS ORDERED: FLEET ENEMA PR STA (08:14)
[2021-11-18] MEDS: MIRALAX *UNIT DOSE* 17GM PACKET PO SCH (08:42)
[2021-11-18] MEDS: rOPINIRole 0.25 MG TAB(REQUIP) PO SCH (08:43)
[2021-11-18] MEDS: POTASSIUM CHLORIDE 10MEQ SR TABLET PO SCH (08:43)
[2021-11-18] MEDS: ASPIRIN 81MG ENTERIC TABLET PO SCH (08:43)
[2021-11-18] MEDS: FLUDROCORTISONE ACETATE 0.1 MG TAB PO SCH (08:48)
[2021-11-18] MEDS: POLYVINYL ALCOHOL OPHTH SOLN 15 ML(LIQUITEARS) OU SCH (08:48)
[2021-11-18] MEDS ORDERED: ASPI-161 PO (10:19)
[2021-11-18] MEDS ORDERED: FERR325T3 PO (11:57)
[2021-11-18] MEDS ORDERED: CEPHALEXIN 500 MG CAP PO SCH (17:00)
== END 2021-11-18 13:14 | DRG 492 ==
LOC: EDBD 12:40 → M ED 12:40 → M MS5PR 16:28 → ENRESERV 16:50 → M ICU 11-12 02:34 → M PCU 11-12 22:44 → M MSPAV 11-14 14:53 → M ICU 11-16 08:36 → M MSPAV 11-17 18:37
PROVIDERS: ADMIT Internal Medicine; ATTEND Internal Medicine
PROC: 0QSJ34Z Reposition Right Fibula with Internal Fixation Device, Percutaneous Approach (ICD-10-PCS; 2021-11-12)
PROC: BQ1DZZZ Fluoroscopy of Right Lower Leg (ICD-10-PCS; 2021-11-12)
PROC: 0QSG04Z Reposition Right Tibia with Internal Fixation Device, Open Approach (ICD-10-PCS; principal; 2021-11-12 12:30)
PROC: 30233N1 Transfusion of Nonautologous Red Blood Cells into Peripheral Vein, Percutaneous Approach (ICD-10-PCS; 2021-11-17)
DX: S82.301A Unspecified fracture of lower end of right tibia, initial encounter for closed fracture (principal); G92.8 Other toxic encephalopathy; D62 Acute posthemorrhagic anemia; G31.83 Neurocognitive disorder with Lewy bodies; F02.80 Dementia in other diseases classified elsewhere, unspecified severity, without behavioral disturbance, psychotic disturbance, mood disturbance, and anxiety; M21.371 Foot drop, right foot; G90.1 Familial dysautonomia [Riley-Day]; K21.9 Gastro-esophageal reflux disease without esophagitis; F32.A Depression, unspecified; F41.9 Anxiety disorder, unspecified; Z66 Do not resuscitate; I44.7 Left bundle-branch block, unspecified; Z79.82 Long term (current) use of aspirin; Z79.899 Other long term (current) drug therapy; Z88.8 Allergy status to other drugs, medicaments and biological substances; Z20.822 Contact with and (suspected) exposure to COVID-19; Z96.651 Presence of right artificial knee joint; S82.451A Displaced comminuted fracture of shaft of right fibula, initial encounter for closed fracture; W06.XXXA Fall from bed, initial encounter; Y92.122 Bedroom in nursing home as the place of occurrence of the external cause; T40.2X5A Adverse effect of other opioids, initial encounter

== ENCOUNTER → 2021-11-19 | Outpatient (REF) ==
[~2021-11-19] MED LIST changes: +ACET325T43 PO; +BISA10SU PR; +CARB1TAB97 PO; +FERR325T3 PO; +MIDO10TA PO; +MILKSUS7 PO; +POLY17PO10 PO; +POTA10CA32 PO; +POTA10TA17 PO; +ROPI0.253 PO; +VENL100T PO
[2021-11-19 15:41] LABS: HEMATOCRIT 25.7 % (36.0-47.0); HEMOGLOBIN 7.6 g/dl (12.0-15.5); MEAN CORPUSCULAR HGB CONC 29.6 g/dl (32.0-36.5); MEAN CORPUSCULAR VOLUME 101.6 fl (80.0-96.0); PLATELET COUNT, AUTOMATED 319 10^3/uL (150-450); RED BLOOD COUNT 2.53 10^6/uL (4.00-5.40); WHITE BLOOD COUNT 6.6 10^3/uL (4.0-10.0)
[2021-11-19 16:08] LABS: BLOOD UREA NITROGEN 12 MG/DL (7-18); CALCIUM LEVEL 8.2 MG/DL (8.8-10.2); CARBON DIOXIDE LEVEL 34 MEQ/L (21-32); CHLORIDE LEVEL 109 MEQ/L (98-107); CREATININE FOR GFR 0.76 MG/DL (0.55-1.30); GLOMERULAR FILTRATION RATE > 60.0 (>39); GLUCOSE, FASTING 128 MG/DL (70-100); IRON (FE) 27 UG/DL (50-170); PERCENT SATURATION 12.9 % (13.2-45.0); POTASSIUM SERUM 3.8 MEQ/L (3.5-5.1); SODIUM LEVEL 147 MEQ/L (136-145); TOTAL IRON BINDING CAPACITY 210 UG/DL (250-450)
== END ==
PROVIDERS: ATTEND Physician Assistant
DX: D64.9 Anemia, unspecified (principal)

== ENCOUNTER → 2021-11-22 | Outpatient (REF) ==
[2021-11-22 11:43] LABS: HEMATOCRIT 26.5 % (36.0-47.0); HEMOGLOBIN 8.2 g/dl (12.0-15.5); MEAN CORPUSCULAR HEMOGLOBIN 30.7 pg (27.0-33.0); MEAN CORPUSCULAR HGB CONC 30.9 g/dl (32.0-36.5); MEAN CORPUSCULAR VOLUME 99.3 fl (80.0-96.0); PLATELET COUNT, AUTOMATED 354 10^3/uL (150-450); RED BLOOD COUNT 2.67 10^6/uL (4.00-5.40); WHITE BLOOD COUNT 5.5 10^3/uL (4.0-10.0)
== END ==
PROVIDERS: ATTEND Internal Medicine
DX: R71.8 Other abnormality of red blood cells (principal)

== ENCOUNTER → 2021-11-22 | Outpatient (REF) | payer MEDICAID, MEDICARE | LOC: M SOG 09:00 → EDSTATUS 11-25 09:40 | PROVIDERS: ATTEND Orthopaedic Surgery Adult Reconstructive Orthopaedic Surgery | DX: Z48.89 Encounter for other specified surgical aftercare (principal); S82.301D Unspecified fracture of lower end of right tibia, subsequent encounter for closed fracture with routine healing ==

== ENCOUNTER → 2021-11-24 | Outpatient (REF) ==
[2021-11-24 09:50] LABS: HEMATOCRIT 27.5 % (36.0-47.0); HEMOGLOBIN 8.3 g/dl (12.0-15.5); MEAN CORPUSCULAR HGB CONC 30.2 g/dl (32.0-36.5); MEAN CORPUSCULAR VOLUME 99.3 fl (80.0-96.0); PLATELET COUNT, AUTOMATED 365 10^3/uL (150-450); RED BLOOD COUNT 2.77 10^6/uL (4.00-5.40); WHITE BLOOD COUNT 7.1 10^3/uL (4.0-10.0)
[2021-11-24 10:55] LABS: BLOOD UREA NITROGEN 15 MG/DL (7-18); CALCIUM LEVEL 8.1 MG/DL (8.8-10.2); CARBON DIOXIDE LEVEL 34 MEQ/L (21-32); CHLORIDE LEVEL 109 MEQ/L (98-107); CREATININE FOR GFR 0.69 MG/DL (0.55-1.30); GLOMERULAR FILTRATION RATE > 60.0 (>39); GLUCOSE, FASTING 88 MG/DL (70-100); POTASSIUM SERUM 3.5 MEQ/L (3.5-5.1); SODIUM LEVEL 146 MEQ/L (136-145)
== END ==
PROVIDERS: ATTEND Physician Assistant
DX: D64.9 Anemia, unspecified (principal)

== ENCOUNTER → 2021-12-01 | Outpatient (REF) ==
[2021-12-01 10:19] LABS: BASO % 0.6 % (0.0-1.0); EOS # 0.2 10^3/uL (0.0-0.5); EOS % 2.8 % (0.0-3.0); HEMATOCRIT 27.8 % (36.0-47.0); HEMOGLOBIN 8.5 g/dl (12.0-15.5); LYMPH # 0.5 10^3/uL (1.5-5.0); LYMPH % 7.7 % (24.0-44.0); MEAN CORPUSCULAR HEMOGLOBIN 30.4 pg (27.0-33.0); MEAN CORPUSCULAR HGB CONC 30.6 g/dl (32.0-36.5); MEAN CORPUSCULAR VOLUME 99.3 fl (80.0-96.0); MONO # 0.3 10^3/uL (0.0-0.8); MONO % 4.9 % (2.0-8.0); NEUTROPHILS # 5.7 10^3/uL (1.5-8.5); NEUTROPHILS % 83.6 % (36.0-66.0); PLATELET COUNT, AUTOMATED 371 10^3/uL (150-450); WHITE BLOOD COUNT 6.8 10^3/uL (4.0-10.0)
[2021-12-01 10:39] LABS: BLOOD UREA NITROGEN 24 MG/DL (7-18); CALCIUM LEVEL 8.8 MG/DL (8.8-10.2); CARBON DIOXIDE LEVEL 33 MEQ/L (21-32); CHLORIDE LEVEL 110 MEQ/L (98-107); CREATININE FOR GFR 0.74 MG/DL (0.55-1.30); GLOMERULAR FILTRATION RATE > 60.0 (>39); GLUCOSE, FASTING 115 MG/DL (70-100); POTASSIUM SERUM 3.5 MEQ/L (3.5-5.1); SODIUM LEVEL 148 MEQ/L (136-145)
== END ==
PROVIDERS: ATTEND Physician Assistant
DX: D64.9 Anemia, unspecified (principal)

== ENCOUNTER → 2021-12-06 | Outpatient (REF) ==
[2021-12-06 17:28] LABS: HEMATOCRIT 27.4 % (36.0-47.0); HEMOGLOBIN 8.4 g/dl (12.0-15.5); MEAN CORPUSCULAR HEMOGLOBIN 30.7 pg (27.0-33.0); MEAN CORPUSCULAR HGB CONC 30.7 g/dl (32.0-36.5); PLATELET COUNT, AUTOMATED 286 10^3/uL (150-450); RED BLOOD COUNT 2.74 10^6/uL (4.00-5.40); WHITE BLOOD COUNT 6.3 10^3/uL (4.0-10.0)
[2021-12-06 17:52] LABS: BLOOD UREA NITROGEN 23 MG/DL (7-18); CALCIUM LEVEL 8.3 MG/DL (8.8-10.2); CARBON DIOXIDE LEVEL 34 MEQ/L (21-32); CHLORIDE LEVEL 109 MEQ/L (98-107); CREATININE FOR GFR 0.83 MG/DL (0.55-1.30); GLOMERULAR FILTRATION RATE > 60.0 (>39); GLUCOSE, FASTING 112 MG/DL (70-100); POTASSIUM SERUM 4.2 MEQ/L (3.5-5.1); SODIUM LEVEL 146 MEQ/L (136-145)
== END ==
PROVIDERS: ATTEND Internal Medicine
DX: E87.0 Hyperosmolality and hypernatremia (principal)

== ENCOUNTER → 2021-12-07 | Outpatient (CLI) | payer MEDICARE, MEDICAID ==
[~2021-12-07] MED LIST changes: +ACET-683 PO; +JUVE1POW PO; +MUCI600T31 PO
== END ==
PROVIDERS: ATTEND Internal Medicine
DX: R05.9 Cough, unspecified (principal); J84.9 Interstitial pulmonary disease, unspecified; R91.8 Other nonspecific abnormal finding of lung field

== ENCOUNTER 2021-12-09 10:42 | Observation (INO) | payer MEDICARE, MEDICAID ==
[~2021-12-09 10:42] MED LIST changes: -ACET-683 PO; -JUVE1POW PO; -MUCI600T31 PO
[2021-12-09] MEDS ORDERED: NS 1,000 ML IV ONE (11:00)
[2021-12-09 11:14] LABS: ABG BASE EXCESS 3.7 (-2.0-2.0); ABG O2 SATURATION 97.6 % (95.0-99.0); ABG PARTIAL PRESSURE O2 100.6 mmHg (75.0-100.0); ABG STANDARD HCO3 27.8 MEQ/L (22.0-26.0); ABG TOTAL CO2 34.2 MEQ/L (23.0-31.0); ABG pH (ARTERIAL) 7.261 UNITS (7.350-7.450)
[2021-12-09 11:15] LABS: BASO % 0.2 % (0.0-1.0); EOS # 0.1 10^3/uL (0.0-0.5); EOS % 1.8 % (0.0-3.0); HEMATOCRIT 29.2 % (36.0-47.0); HEMOGLOBIN 8.7 g/dl (12.0-15.5); LYMPH # 0.4 10^3/uL (1.5-5.0); LYMPH % 6.8 % (24.0-44.0); MEAN CORPUSCULAR HEMOGLOBIN 30.9 pg (27.0-33.0); MEAN CORPUSCULAR HGB CONC 29.8 g/dl (32.0-36.5); MEAN CORPUSCULAR VOLUME 103.5 fl (80.0-96.0); MONO # 0.4 10^3/uL (0.0-0.8); MONO % 7.2 % (2.0-8.0); NEUTROPHILS # 5.1 10^3/uL (1.5-8.5); NEUTROPHILS % 83.7 % (36.0-66.0); PLATELET COUNT, AUTOMATED 229 10^3/uL (150-450); RED BLOOD COUNT 2.82 10^6/uL (4.00-5.40); WHITE BLOOD COUNT 6.1 10^3/uL (4.0-10.0)
[2021-12-09 11:17] LABS: ABG PARTIAL PRESSURE CO2 72.7 mmHg (35.0-45.0)
[2021-12-09 11:44] LABS: ALBUMIN 2.7 GM/DL (3.2-5.2); ALT/SGPT 9 U/L (12-78); BILIRUBIN,DIRECT < 0.1 MG/DL (0.0-0.2); BILIRUBIN,TOTAL 0.3 MG/DL (0.2-1.0); BLOOD UREA NITROGEN 23 MG/DL (7-18); CALCIUM LEVEL 8.6 MG/DL (8.8-10.2); CARBON DIOXIDE LEVEL 36 MEQ/L (21-32); CHLORIDE LEVEL 110 MEQ/L (98-107); CREATININE FOR GFR 0.88 MG/DL (0.55-1.30); GLOMERULAR FILTRATION RATE > 60.0 (>39); GLUCOSE, FASTING 101 MG/DL (70-100); POTASSIUM SERUM 4.6 MEQ/L (3.5-5.1); SODIUM LEVEL 147 MEQ/L (136-145); TOTAL PROTEIN 5.6 GM/DL (6.4-8.2)
[2021-12-09] MEDS ORDERED: ISOVUE-370 76% 100ML VIAL As Ordered ONE (11:47)
[2021-12-09 11:48] LABS: CK-MB VALUE MASS 1.1 NG/ML (<3.6); MB/CK RELATIVE INDEX 1.51 (< OR =4)
[2021-12-09 12:21] LABS: AMPHETAMINES LEVEL URINE NEGATIVE (NEGATIVE); BARBITURATES URINE NEGATIVE (NEGATIVE); BENZODIAZEPINES URINE NEGATIVE (NEGATIVE); CANNABINOIDS URINE NEGATIVE (NEGATIVE); COCAINE METABOLITE URINE NEGATIVE (NEGATIVE); METHADONE URINE NEGATIVE (NEGATIVE); OPIATES URINE NEGATIVE (NEGATIVE); PHENCYCLIDINE URINE NEGATIVE (NEGATIVE)
[2021-12-09 13:16] LABS: ABG BASE EXCESS 2.1 (-2.0-2.0); ABG HCO3 31.4 MEQ/L (22.0-26.0); ABG O2 SATURATION 92.5 % (95.0-99.0); ABG PARTIAL PRESSURE O2 75.7 mmHg (75.0-100.0); ABG STANDARD HCO3 26.2 MEQ/L (22.0-26.0); ABG TOTAL CO2 33.9 MEQ/L (23.0-31.0)
[2021-12-09 13:18] LABS: ABG pH (ARTERIAL) 7.212 UNITS (7.350-7.450)
[2021-12-09] MEDS ORDERED: FERR325T3 PO (14:56)
[2021-12-09] MEDS ORDERED: ACET-683 PO (14:56)
[2021-12-09] MEDS ORDERED: MUCI600T31 PO (14:56)
[2021-12-09] MEDS ORDERED: JUVE1POW PO (14:56)
[2021-12-09] MEDS ORDERED: HOME MED LIST COMPLETE! XX SCH (15:05)
[2021-12-09] MEDS ORDERED: LORazepam 2 MG/ML VIAL IV PRN (15:25)
[2021-12-09] MEDS ORDERED: SCOPOLAMINE 1MG TRANSDERMAL PATCH TOP PRN (15:25)
[2021-12-09] MEDS ORDERED: MORPHINE 2 MG/ML 1ML VIAL IV PRN (15:25)
[2021-12-09 15:30] VITALS: BP 97/50
[2021-12-10] MEDS ORDERED: HYOS125TA PO (11:41)
[2021-12-10] MEDS ORDERED: MORP1SOL5 PO (11:41)
[2021-12-10] MEDS ORDERED: ATIV1TAB10 PO (11:41)
== END 2021-12-10 14:20 ==
LOC: M ED 10:42 → EDBD 10:42 → M ED INP 15:23 → ENRESERV 16:04 → M MS5PR 16:25
PROVIDERS: ADMIT Internal Medicine; ATTEND Internal Medicine
DX: G93.41 Metabolic encephalopathy (principal); J96.92 Respiratory failure, unspecified with hypercapnia; J18.9 Pneumonia, unspecified organism; J90 Pleural effusion, not elsewhere classified; E87.0 Hyperosmolality and hypernatremia; D55.9 Anemia due to enzyme disorder, unspecified; R74.8 Abnormal levels of other serum enzymes; G20 Parkinson's disease; K21.9 Gastro-esophageal reflux disease without esophagitis; F41.9 Anxiety disorder, unspecified; F32.9 Major depressive disorder, single episode, unspecified; Z79.899 Other long term (current) drug therapy; Z88.5 Allergy status to narcotic agent
CPT/HCPCS: 36600; 51702; 70450; 71045; 71275; 80047; 80048; 80076; 80307; 81001; 82140; 82550; 82553; 82803; 83605; 84443; 84484; 85025; 87040; 87088; 87186; 87798; 93005; 93041; 96374; 96375; 99285; G0378; J2060; Q9967

== ENCOUNTER → 2021-12-13 | Outpatient (REF) | payer MEDICAID, MEDICARE ==
[~2021-12-13] MED LIST changes: +ACET-683 PO; +ATIV1TAB10 PO; +HYOS125TA PO; +JUVE1POW PO; +MORP1SOL5 PO; +MUCI600T31 PO
== END ==
PROVIDERS: ATTEND Internal Medicine
DX: D64.9 Anemia, unspecified (principal); Z53.9 Procedure and treatment not carried out, unspecified reason